=== PATIENT | female | born 1955 | race Caucasian/White ===

== ENCOUNTER 2020-06-14 09:22 | Outpatient (CLI) | payer MEDICARE, SELFPAY ==
--- NOTE | ~2020-06-14 | US_ITS ---
EXAMINATION: US abdomen complete DATE: 06/14/2020 09:57 INDICATION: Right upper quadrant pain TECHNIQUE: Multiple grayscale and Doppler ultrasound images of the abdomen were obtained. COMPARISON: 02/05/2016 FINDINGS: The head and and body of the pancreas are normal. The pancreatic tail is obscured by bowel gas. The liver is normal with normal echogenicity and echotexture. No surface nodularity. Normal hepa topetal flow in the main portal vein. The gallbladder is normal with no abnormal wall thickening, per icholecystic fluid or stones. The normal common bile duct measures 3 mm. There was no sonographic Mur phy sign. The visualized portions of the aorta and inferior vena cava are normal. The right kidney measures 10.9 x 4.1 x 6.6 cm. The left kidney measures 10.0 x 6.0 x 6.2 cm. The kidn eys demonstrate normal parenchymal echogenicity. There is no hydronephrosis. The spleen is normal in appearance and measures 10.4 cm. IMPRESSION: 1. No sonographic correlate for the patient's symptoms. Reviewed, dictated and finalized at location B.
== END 2020-06-14 09:23 | disposition home or self-care (01) ==
PROVIDERS: PCP Internal Medicine; Visit Provider Internal Medicine
DX: R10.11 Right upper quadrant pain (principal)
CPT/HCPCS: 76700

== ENCOUNTER 2023-01-29 11:52 | Outpatient (CLI) | payer MEDICARE, SELFPAY ==
[2023-01-29 12:32] LABS: Alanine Aminotransferase 21 U/L (6-35); Alkaline Phosphatase 120 U/L (38-126); Anion Gap 6 mmol/L (8-16); Aspartate Amino Transferase 27 U/L (14-36); Bilirubin,Total 0.4 mg/dL (0.2-1.3); Blood Urea Nitrogen 11 mg/dL (7-17); Calcium 8.6 mg/dL (8.4-10.2); Carbon Dioxide 30 mmol/L (22-30); Chloride 105 mmol/L (98-107); Cholesterol 164 mg/dL (0-200); Estimated Glomerular Filt Rate > 60; Glucose 79 mg/dL (65-110); HDL Direct 54 mg/dL; Sodium 141 mmol/L (137-145); Triglycerides 167 mg/dL (<150)
[2023-01-29 12:42] LABS: LDL Cholesterol Direct 71 mg/dL
[2023-01-29 12:43] LABS: Rheumatoid Factor < 12.0 IU/ML (<12)
[2023-01-29 12:47] LABS: Erythrocyte Sedimentation Rate 21 mm/hr (0-20)
[2023-01-29 13:01] LABS: Vitamin D 25 Hydroxy 35.1 ng/mL
== END 2023-01-29 11:53 | disposition home or self-care (01) ==
PROVIDERS: PCP Internal Medicine; Visit Provider Internal Medicine
DX: M79.10 Myalgia, unspecified site (principal); E55.9 Vitamin D deficiency, unspecified; E78.00 Pure hypercholesterolemia, unspecified
CPT/HCPCS: 36415; 80053; 80061; 82306; 85652; 86038; 86430

== ENCOUNTER 2023-05-27 09:58 | Outpatient (CLI) | payer MEDICARE, SELFPAY ==
--- NOTE | ~2023-05-27 | DEXA_ITS ---
Bone Density Report Name: SNOW SHERMAN Age: 68 Sex: Female Ethnicity: White Date of : 1955 Indication: postmenopausal; screening for osteoporosis; height loss; cancer; asthma or emphysema; hysterectomy; Referring Provider: ЮЛИЯ PAK Study: Bone densitometry was performed. Exam Date: May 27, 2023 Accession number: [id number] Bone Density: Region BMD T-score Z-score Classification Femoral Neck (Left) 0.777 -0.6 1.2 Normal Total Hip (Left) 0.904 -0.3 1.2 Normal Femoral Neck (Right) 0.756 -0.8 1.0 Normal Total Hip (Right) 0.906 -0.3 1.2 Normal Total Hip Mean 0.905 -0.3 1.2 Normal World Health Organization criteria for BMD impression classify patients as: Normal (T-score at or above -1.0), Osteopenia (T-score between -1.0 and -2.5), or Osteoporosis (T-score at or below -2.5). 10-year Fracture Risk: FRAX not reported because: All T-scores for Spine Total, Hip Total, Femoral Neck at or above -1.0 Clinical Information Provided by Patient: Has the following medical conditions: Asthma or Emphysema, Cancer, Hysterectomy Patient maximum height was 61 Menopause Age: 34 No regular weight bearing exercise Drinks caffeinated beverages Onset of menses at age 11 Number of children 4 Impression: The patient has normal bone mass. Discussion: BONE DENSITY IS ABOVE THE MINIMUM DESIRABLE LEVEL AT ALL SKELETAL SITES TESTED. This patient?s bone mineral density is above the minimum desirable level (T-score -1.0 or better) at all sites measured. The patient should follow a healthful lifestyle (good nutrition with adequate calcium and vitamin D, and appropriate weight-bearing exercise). Follow-Up: Consider repeating this study in 5 years or sooner if there is some new clinical indication. Reported by: UVALDO on 05/27/2023 10:26:00 AM. Reviewed, dictated and finalized at location ATamy RITTER
== END 2023-05-27 09:59 | disposition home or self-care (01) ==
PROVIDERS: PCP Internal Medicine; Visit Provider Internal Medicine
DX: Z78.0 Asymptomatic menopausal state (principal)
CPT/HCPCS: 77080

== ENCOUNTER → 2023-05-27 10:35 | Outpatient (CLI) | payer MEDICARE, SELFPAY ==
--- NOTE | ~2023-05-27 | CT_ITS ---
EXAMINATION: CT sinus wo con DATE: 05/27/2023 10:50 INDICATION: Chronic sinusitis TECHNIQUE: Computed tomography (CT) of the paranasal sinuses was performed without intravenous contra st. The dose-length product was 265.85 mGy-cm. Automated exposure control and iterative reconstructio n technique were employed. COMPARISON: None FINDINGS: There is a mucous retention cyst of the left maxillary sinus. No significant mucosal thicke fransisco. No air-fluid levels. No significant septal deviation. Ostiomeatal units are patent. Mastoids ar e pneumatized. IMPRESSION: 1. Mucous retention cyst left maxillary sinus measuring 1.4 cm. Reviewed, dictated and finalized at location L.
== END ==
PROVIDERS: PCP Allergy & Immunology; Visit Provider Allergy & Immunology
DX: J32.9 Chronic sinusitis, unspecified (principal); J34.1 Cyst and mucocele of nose and nasal sinus
CPT/HCPCS: 70486

== ENCOUNTER 2023-08-09 09:37 | Outpatient (CLI) | payer MEDICARE, SELFPAY ==
[2023-08-09 10:29] LABS: Basophils Absolute Auto 0.1 K/mm3 (0.0-0.1); Basophils Percent Auto 0.9 % (0.2-1.2); Eosinophils Absolute Auto 0.4 K/mm3 (0-0.3); Eosinophils Percent Auto 7.5 % (0-4.4); Hematocrit 42.2 % (37.0-47.0); Hemoglobin 13.3 g/dL (12.0-15.0); Immature Granulocyte Absolute 0.02 K/mm3 (0.00-0.031); Immature Granulocyte Percent A 0.3 % (0-0.5); Lymphocytes Absolute Auto 1.87 K/mm3 (0.9-3.2); Lymphocytes Percent Auto 32.5 % (18.3-44.2); Mean Corpuscular HGB Conc 31.5 g/dl (32-36); Mean Corpuscular Hemoglobin 28.7 pg (26-34); Mean Corpuscular Volume 90.9 fl (80-100); Mean Platelet Volume 9.3 fl (7.4-10.4); Monocytes Absolute Auto 0.5 K/mm3 (0.1-0.6); Monocytes Percent Auto 8.2 % (2.6-8.5); Neutrophils Absolute Auto 2.9 K/mm3 (1.3-6.7); Neutrophils Percent Auto 50.6 % (45.5-73.1); Platelet Count Result 378 k/mm3 (150-375); Red Blood Count 4.64 M/mm3 (4.2-5.4); Red Cell Distribution Width 14.1 % (11.5-14.5); White Blood Count 5.8 K/mm3 (4.5-10.0)
[2023-08-09 11:55] LABS: LDL Cholesterol Direct 81 mg/dL
[2023-08-09 11:56] LABS: Vitamin D 25 Hydroxy 27.3 ng/mL
[2023-08-09 12:49] LABS: Folic Acid 6.2 ng/mL (2.76->20)
[2023-08-09 14:12] LABS: Iron 68 ug/dL (37-170)
[2023-08-09 14:18] LABS: Alanine Aminotransferase 22 U/L (6-35); Alkaline Phosphatase 120 U/L (38-126); Anion Gap 6 mmol/L (8-16); Aspartate Amino Transferase 32 U/L (14-36); Bilirubin,Total 0.5 mg/dL (0.2-1.3); Blood Urea Nitrogen 12 mg/dL (7-17); Calcium 9.2 mg/dL (8.4-10.2); Carbon Dioxide 26 mmol/L (22-30); Chloride 107 mmol/L (98-107); Estimated Glomerular Filt Rate > 60; Glucose 90 mg/dL (65-110); Potassium 4.4 mmol/L (3.4-5.0); Sodium 139 mmol/L (137-145)
[2023-08-09 14:34] LABS: Percent Iron Saturation 18 % (20-50)
[2023-08-09 16:15] LABS: Cholesterol 169 mg/dL (0-200); HDL Direct 54 mg/dL
[2023-08-09 16:17] LABS: Triglycerides 139 mg/dL (<150)
== END 2023-08-09 09:38 | disposition home or self-care (01) ==
PROVIDERS: PCP Allergy & Immunology; Visit Provider Internal Medicine
DX: E87.6 Hypokalemia (principal); D64.9 Anemia, unspecified; E55.9 Vitamin D deficiency, unspecified; E78.00 Pure hypercholesterolemia, unspecified; R53.83 Other fatigue
CPT/HCPCS: 36415; 80053; 80061; 82306; 82607; 82746; 83540; 83550; 84443; 85025

== ENCOUNTER 2024-05-30 12:15 | Outpatient (CLI) | payer MEDICARE, SELFPAY ==
--- NOTE | 2024-05-30 12:19 | ECHO_ITS ---
Patient Info Name: Vangie Cha Age: 69 years : 1955 Gender: Female Ht: 61 in Wt: 166 lbs BSA: 1.83 m2 HR: 66 bpm BP: 149 / 67 mmHg Heart Rhythm: Sinus Rhythm Technical Quality: Good Exam Date: 05/30/2024 1:11 PM Exam Location: Echo Lab Patient Status: Outpatient Admit Date: 05/30/2024 Staff Ordering Physician: Silvano Laird DO Airport Control Operator: Carolina Saini RDCS Attending Provider: Silvano Laird DO Referring Physician: Eitan CARRILLO; Exam Type: CA echo doppler w bubble study Study Info Indications G45.8 - Other transient cerebral ischemic attacks and related syndromes Complete two-dimensional, color flow and Doppler transthoracic echocardiogram is performed with agitated saline. Strain analysis performed. Contrast/Agitated Saline Contrast/Ag. Saline: Agitated Saline Amount: 20.00 ml Administered By: Jerald Brady, RN New IV Access: Antecubital Space and Right Site Condition: No extravasation, Site dressing applied and IV removed Summary 1. Left ventricular chamber dimension is normal. 2. Left ventricular systolic function is normal, estimated at 60-65%. 3. The left ventricular diastolic function is grade I diastolic dysfunction. 4. Global longitudinal strain is abnormal at -16 %. 5. Right ventricular systolic function is normal. 6. Left atrial chamber dimension is mildly enlarged. 7. Bubble study is negative at rest. However, with Valsalva, there is a late, small right to left shunt, concerning for possible intrapulmonary shunt. 8. There is moderate mitral valve regurgitation. 9. There is mild tricuspid valve regurgitation. Left Ventricle Left ventricular chamber dimension is normal. Left ventricular systolic function is normal, estimated at 60-65%. There is no increased left ventricular wall thickness. The left ventricular diastolic function is grade I diastolic dysfunction. Global longitudinal strain is abnormal at -16 %. Right Ventricle Right ventricular chamber dimension is normal. Right ventricular systolic function is normal. Left Atria Left atrial chamber dimension is mildly enlarged. Right Atria Right atrial chamber dimension is normal. Atrial Septum Bubble study is negative at rest. However, with Valsalva, there is a late, small right to left shunt, concerning for possible intrapulmonary shunt. Aortic Valve The aortic valve is trileaflet. There is mild aortic valve sclerosis. There is no aortic valve stenosis. There is no aortic valve regurgitation. Pulmonic Valve The pulmonic valve is not well visualized. There is trace pulmonic regurgitation. Mitral Valve There is moderate mitral valve regurgitation. Tricuspid Valve There is mild tricuspid valve regurgitation. Pericardium/Pleural There is no pericardial effusion. Inferior Vena Cava Normal inferior vena cava with <50% collapse upon inspiration consistent with elevated right atrial pressure, 8 mmHg. Aorta The aortic root size at the sinus of Valsalva is normal. Left Ventricular Outflow Tract Name Value Normal LVOT 2D LVOT Diameter 1.9 cm LVOT Doppler LVOT Peak Gradient 7 mmHg LVOT Mean Gradient 4 mmHg
== END 2024-05-30 12:16 | disposition home or self-care (01) ==
LOC: ANHCARD 12:16
PROVIDERS: PCP Internal Medicine; Visit Provider Internal Medicine
DX: G45.8 Other transient cerebral ischemic attacks and related syndromes (principal); R60.9 Edema, unspecified; I34.0 Nonrheumatic mitral (valve) insufficiency; I07.1 Rheumatic tricuspid insufficiency
CPT/HCPCS: 93306; 96375

== ENCOUNTER 2024-06-15 13:52 | Outpatient (CLI) | payer MEDICARE, SELFPAY ==
--- NOTE | ~2024-06-15 | CT_ITS ---
CT Scan of the Chest without Contrast: Clinical Indication: Abnormal findings on diagnostic imaging of heart and coronary circulation Technique: Contiguous sections were acquired throughout the chest without intravenous contrast. Dose reduction technique was used on this scan by utilizing automated exposure control and iterative recon struction technique. The dose-length product (DLP) was 175.36 mGy-cm. Findings: There is no evidence of any significant mediastinal, hilar or axillary lymphadenopathy. Calcified rig ht hilar lymph nodes are present. No aortic aneurysm. There is no evidence of pleural or pericardial effusion. There is moderate emphysema and mild chronic interstitial change. There is minimal right basilar atel ectasis. Images through the upper abdomen reveal no abnormalities. Impression: Moderate emphysema and mild chronic interstitial change. Reviewed, dictated and finalized at [facility]. Impression: Moderate emphysema and mild chronic interstitial change.
== END 2024-06-15 13:53 | disposition home or self-care (01) ==
PROVIDERS: PCP Internal Medicine; Visit Provider Internal Medicine
DX: R93.1 Abnormal findings on diagnostic imaging of heart and coronary circulation (principal); J43.9 Emphysema, unspecified; J84.89 Other specified interstitial pulmonary diseases
CPT/HCPCS: 71250

== ENCOUNTER 2024-08-22 14:22 | Outpatient (CLI) | payer MEDICARE, SELFPAY ==
--- NOTE | ~2024-08-22 | XR_ITS ---
EXAMINATION: XR chest 2V DATE: 08/22/2024 14:41 INDICATION: Cough. TECHNIQUE: Frontal and lateral views of the chest were obtained. COMPARISON: Chest 2 views 08/15/2018, chest CT 06/15/2024 FINDINGS: Calcified right lung nodules and calcified right hilar lymph nodes are consistent with old granulomatous disease. There is a diffuse interstitial pattern in the lungs. There are airspace opaci ties in right lower lobe. No pleural effusion or pneumothorax. The heart size is normal. There are ch anges of posterior fusion and thoracolumbar spine. IMPRESSION: 1. Airspace opacities in right lower lobe, consistent with atelectasis versus pneumonia. 2. Chronic diffuse interstitial pattern in the lungs, likely a combination of emphysema and chronic i nterstitial lung disease. Reviewed, dictated and finalized at location A. R OPERATOR IMPRESSION: 1. Airspace opacities in right lower lobe, consistent with atelectasis versus p neumonia. 2. Chronic diffuse interstitial pattern in the lungs, likely a combination of e mphysema and chronic interstitial lung disease.
== END 2024-08-22 14:23 | disposition home or self-care (01) ==
LOC: MICIMG 14:23
PROVIDERS: PCP Allergy & Immunology; Visit Provider Allergy & Immunology
DX: R91.8 Other nonspecific abnormal finding of lung field (principal); R05.9 Cough, unspecified
CPT/HCPCS: 71046

== ENCOUNTER 2024-09-25 15:01 | Outpatient (CLI) | payer MEDICARE, SELFPAY ==
[2024-09-25 20:02] LABS: Basophils Percent Auto 0.3 % (0.2-1.2); Eosinophils Absolute Auto 0.2 K/mm3 (0-0.3); Hematocrit 39.5 % (37.0-47.0); Hemoglobin 12.1 g/dL (12.0-15.0); Immature Granulocyte Absolute 0.04 K/mm3 (0.00-0.031); Immature Granulocyte Percent A 0.3 % (0-0.5); Lymphocytes Absolute Auto 2.25 K/mm3 (0.9-3.2); Lymphocytes Percent Auto 18.5 % (18.3-44.2); Mean Corpuscular HGB Conc 30.6 g/dl (32-36); Mean Corpuscular Hemoglobin 27.3 pg (26-34); Mean Platelet Volume 10.2 fl (7.4-10.4); Monocytes Absolute Auto 0.8 K/mm3 (0.1-0.6); Monocytes Percent Auto 6.6 % (2.6-8.5); Neutrophils Absolute Auto 8.8 K/mm3 (1.3-6.7); Neutrophils Percent Auto 72.3 % (45.5-73.1); Platelet Count Result 411 k/mm3 (150-375); Red Blood Count 4.44 M/mm3 (4.2-5.4); Red Cell Distribution Width 15.9 % (11.5-14.5); White Blood Count 12.1 K/mm3 (4.5-10.0)
[2024-09-25 20:13] LABS: Alanine Aminotransferase 55 U/L (6-35); Alkaline Phosphatase 153 U/L (38-126); Anion Gap 3 mmol/L (4-12); Aspartate Amino Transferase 62 U/L (14-36); Bilirubin,Total 0.3 mg/dL (0.2-1.3); Blood Urea Nitrogen 13 mg/dL (7-17); Calcium 9.1 mg/dL (8.4-10.2); Carbon Dioxide 30 mmol/L (22-30); Chloride 110 mmol/L (98-107); Cholesterol 135 mg/dL (0-200); Estimated Glomerular Filt Rate > 60; Glucose 100 mg/dL (65-110); HDL Direct 51 mg/dL; Sodium 143 mmol/L (137-145); Triglycerides 107 mg/dL (<150)
[2024-09-25 20:24] LABS: LDL Cholesterol Direct 51 mg/dL
[2024-09-25 20:37] LABS: Vitamin D 25 Hydroxy 47.9 ng/mL
[2024-09-25 21:09] LABS: Ferritin 6.99 ng/mL (11.1-264)
[2024-09-28 22:33] LABS: Alphahydroxymidazolam NEGATIVE ng/mL (<50); Alphahydroxytriazolam NEGATIVE ng/mL (<50); Amphetamines NEGATIVE ng/mL (<500); Barbiturates NEGATIVE ng/mL (<300); Benzodiazepines POSITIVE ng/mL (<100); Cocaine Metabolite NEGATIVE ng/mL (<150); Hydroxyethylflurazepam NEGATIVE ng/mL (<50); Lorazepam NEGATIVE ng/mL (<50); Marijuana Metabolite 15 ng/mL (<5); Marijuana Metabolite POSITIVE ng/mL (<20); Methadone Metabolite NEGATIVE ng/mL (<100); Opiates NEGATIVE ng/mL (<100); Oxidant NEGATIVE mcg/mL (<200); Temazepam NEGATIVE ng/mL (<50); pH 5.3 (4.5-9.0)
== END 2024-09-25 15:02 | disposition home or self-care (01) ==
PROVIDERS: PCP Internal Medicine; Visit Provider Internal Medicine
DX: R60.0 Localized edema (principal); F11.90 Opioid use, unspecified, uncomplicated; D64.9 Anemia, unspecified; E78.5 Hyperlipidemia, unspecified; R53.83 Other fatigue; E55.9 Vitamin D deficiency, unspecified; Z98.890 Other specified postprocedural states
CPT/HCPCS: 36415; 80053; 80061; 80299; 82306; 82607; 82728; 85025

== ENCOUNTER 2024-11-01 12:41 | Outpatient (CLI) | payer MEDICARE, SELFPAY ==
[2024-11-01 13:13] LABS: Basophils Percent Auto 0.5 % (0.2-1.2); Eosinophils Absolute Auto 0.3 K/mm3 (0-0.3); Eosinophils Percent Auto 4.3 % (0-4.4); Hematocrit 36.6 % (37.0-47.0); Hemoglobin 11.3 g/dL (12.0-15.0); Immature Granulocyte Absolute 0.01 K/mm3 (0.00-0.031); Immature Granulocyte Percent A 0.1 % (0-0.5); Lymphocytes Absolute Auto 1.84 K/mm3 (0.9-3.2); Lymphocytes Percent Auto 24.2 % (18.3-44.2); Mean Corpuscular HGB Conc 30.9 g/dl (32-36); Mean Corpuscular Volume 87.6 fl (80-100); Mean Platelet Volume 9.7 fl (7.4-10.4); Monocytes Absolute Auto 0.5 K/mm3 (0.1-0.6); Monocytes Percent Auto 6.4 % (2.6-8.5); Neutrophils Absolute Auto 4.9 K/mm3 (1.3-6.7); Neutrophils Percent Auto 64.5 % (45.5-73.1); Platelet Count Result 335 k/mm3 (150-375); Red Blood Count 4.18 M/mm3 (4.2-5.4); Red Cell Distribution Width 14.7 % (11.5-14.5); White Blood Count 7.6 K/mm3 (4.5-10.0)
[2024-11-01 13:24] LABS: INR 1.1; Prothrombin Time 14.7 Seconds (11.1-14.7)
--- OUTSIDE RECORDS SUMMARY | 2024-11-01 13:34 | XMS_ITS | Clinical Summary ---
Author Organization [facility] Address [address] [place] [address] Care Team Providers Care Skin Toggler Name Role Phone Kain Shields DO Primary Care Provider Source Comments [facility],non-owned Affiliates and Associated Physician Practices is amultiple site organization consisting of ambulatory clinics and hospital sitesin [place], [place], [place]. This disclosure is being madepursuant to the Care Everywhere program and may not contain all information available regarding this patient. Last updated 18.[facility] Allergies Active Allergy Reactions Criticality Noted Date Comments Hydrocodone Itching 10/07/2018 Nausea Medications * Be aware that medications may not be up to date on this document. Alwaysverify current medications with the patient. Medication Sig Dispensed Refills Start Date End Date Status albuterol (Proventil;Ventoli n) (2.5 MG/3ML) 0.083% nebulizer solution 04/22/2023 Active albuterol HFA (Proventil; Ventolin; Proair) 108 (90 Base) MCG/ACT inhaler Inhale 2 (two) puffs by mouth every 6 hours as needed for Wheezing 07/21/2023 Active aspirin EC (Ecotrin) 81 MG tablet Take 1 (one) tablet by mouth once daily Active busPIRone (Buspar) 10 MG tablet Take 1 (one) tablet by mouth 2 times daily 07/01/2023 Active esomeprazole (NexIUM) 40 MG capsule Take 1 (one) capsule by mouth daily before breakfast 06/08/2023 Active gabapentin (Neurontin) 400 MG capsule Take 1 (one) capsule by mouth 2 times daily 07/01/2023 Active lamoTRIgine (LaMICtal) 50 MG TABS Take 1 (one) Half Tablet by mouth 2 times daily 06/29/2022 Active lisinopril (Prinivil; Zestril) 5 MG tablet Take 1 (one) tablet by mouth once daily 07/01/2023 Active simvastatin (Zocor) 40 MG tablet Take 1 (one) tablet by mouth once daily 06/03/2023 Active Belsomra 20 MG tablet Take 1 (one) tablet by mouth at bedtime 04/27/2023 Active Trintellix 20 MG tablet Take 1 (one) tablet by mouth once daily 07/01/2023 Active pimecrolimus (Elidel) 1 % cream 11/01/2023 Active hydrOXYzine HCl (Atarax) 10 MG tablet Take 1 (one) tablet by mouth 2 times daily as needed 12/20/2023 Active eszopiclone (Lunesta) 3 MG tablet Take 1 (one) tablet by mouth at bedtime 12/20/2023 Active clonazePAM (KlonoPIN) 0.5 MG tablet Take 1 (one) tablet by mouth once daily as needed 12/16/2023 Active Immune Globulin, Human, (HIZENTRA SC) Inject subcutaneously every 7 days Active cetirizine (ZyrTEC) 10 MG chew tablet Take 1 (one) tablet by mouth once daily Active fluticasone propionate (Flonase) 50 MCG/ACT nasal spray [place] 2 (two) sprays into each nostril once daily Active vitamin D, ergocalciferol, (Drisdol) 1.25 MG (97818 UT) capsule Take 1 (one) capsule by mouth every 7 days 12 capsule 01/18/2024 Active acetaminophen (Tylenol) 160 MG/5ML solution Take 20.3125 mL by mouth every 6 hours 02/02/2024 Active cyclobenzaprine (Flexeril) 10 MG tabletIndications: chronic back pain Take 1 (one) tablet by mouth every 8 hours as needed for Muscle Spasms Reasons: chronic back pain 15 tablet 02/02/2024 Active gabapentin (Neurontin) 250 MG/5ML oral solution Take 8 mL by mouth 2 times daily for 30 days 480 mL 02/02/2024 Active vitamin E (Tocopheryl) 400 UNIT capsule Take 2 (two) capsules by mouth once daily 180 capsule 02/25/2024 Active docusate sodium (Colace Clear) 50 MG capsuleIndications :Constipation, unspecified constipation type Take 1 (one) capsule by mouth 3 times daily 270 capsule 1 08/02/2024 Active ondansetron, disintegrating, (Zofran ODT) 4 MG tablet DISSOLVE 1 TABLET ON THE TONGUE EVERY 6 HOURS NEEDED FOR NAUSEA AND VOMITING 30 tablet 3 08/02/2024 Active Active Problems Problem Noted Date Diagnosed Date Morbid obesity 02/01/2024 Encounters Date Type Department Care Team Description 08/10/[address] [facility] [address] [place] [address], [address] [place], [place] [id number] Vikki Salvador APRN-CNP Results 08/04/[address] [facility] [address] [facility], [address] [place] [address] Kayla Schumacher APRN-CNP Refill Request 08/02/2024 1:00 PM CDT Office Visit [facility] [address] [facility] [address] [place] [address] Vikki Salvador APRN-CNP Constipation, unspecified constipation type (Primary Dx); S/P biliopancreatic diversion with duodenal switch; Vitamin deficiency; Weight loss; Dietary counseling and surveillance; Postsurgical malabsorption (HCC); History of morbid obesity 08/02/2024 Travel from Last 3 Months Social History Tobacco Use Types Packs/Day Years Used Date Smoking Tobacco: Former Cigarettes Smokeless Tobacco: Never Tobacco Cessation:Counseling Given: Not Answered Alcohol Use Standard Drinks/Week Comments Not Currently 0 (1 standard drink = 0.6 oz pur e alcohol) Sex and Gender Information Value Date Recorded Sex Assigned at Not on file Gender Identity Not on file Sexual Orientation Not on file Last Filed Vital Signs Vital Sign Reading Time Taken Comments Blood Pressure 124/70 08/02/2024 12:40 PM CDT Pulse 68 08/02/2024 12:40 PM CDT Temperature 36.3 ??C (97.4 ??F) 08/02/2024 12:40 PM C DT Respiratory Rate 18 02/02/2024 8:04 AM CDT Oxygen Saturation 96% 08/02/2024 12:40 PM CDT Inhaled Oxygen Concentration - - Weight 72.3 kg (159 lb 6.4 oz) 08/02/2024 12:40 PM CDT Height 154.9 cm (5' 1 ) 08/02/2024 12:40 PM CDT Body Mass Index 30.12 08/02/2024 12:40 PM CDT Plan of Treatment Upcoming Encounters Date Type Department Care Team (Late st Contact Info) Description 01/31/2025 1:00 PM CDT Office Visit [facility] Weight Management Services [address], [address] [place] [address] Vikki Salvador, SERVICE SPECIALIST-CASHIER [facility] [address] [facility] [address] [place] [address] Health Maintenance Due Date Last Done Comments BONE DENSITY TESTING 1955 COLOGUARD (AGES 45-75) - COLON CA SCREENING [address] COLONOGRAPHY - COLON CA SCREENING 1955 FIT - COLON CA SCREENING 1955 FLEX SIG - COLON CA SCREENING 1955 MAMMOGRAM 1955 HEPATITIS C SCREENING 01/07/1971 DTAP/TDAP/TD VACCINES (1 - Tdap) 01/12/1972 PNEUMOCOCCAL VACCINE 50+ (1 of 1 - PCV) 2003 ZOSTER VACCINE (1 of 2) 2003 Respiratory Syncytial Virus (RSV) Vaccine Pt: or over 60 yrs (1 - Risk 60-74 years 1-dose series) 2013 COVID-19 VACCINE (1 - season) 2024 INFLUENZA VACCINE (#1) 2024 12/03/2015 DEPRESSION SCREENING 10/04/2024 MEDICARE AWV ? CALENDAR YEAR 2024 SCREENING FOR DIABETES 08/02/2027 4, 02/02/2024, 02/01/2024, Additional history exists COLONOSCOPY - COLON CA SCREENING 03/27/2030 03/27/2020 Colorectal Cancer Screening 03/27/2030 HEPATITIS B VACCINE Aged Out No longe r eligible based on patient's age to complete this topic HIB VACCINE Aged Out No longer eligi ble based on patient's age to complete this topic HPV VACCINE Aged Out No longer eligi ble based on patient's age to complete this topic MENINGOCOCCAL (Group B) VACCINE Aged Out No longer eligible based on patient's age to complete this topic MENINGOCOCCAL VACCINE Aged Out No susanna estelle eligible based on patient's age to complete this topic Procedures Procedure Name Priority Date/Time Associated Diagnosis Comments VITAMIN D 25-HYDROXY Routine 08/02/2024 1:38 PM CDT Constipation, unspecified constipation type S/P biliopancreatic diversion with duodenal switch Vitamin deficiency Weight loss Dietary counseling and surveillance Postsurgical malabsorption (HCC) History of morbid obesity IRON + TIBC PANEL Routine 08/02/2024 1:3 8 PM CDT Constipation, unspecified constipation type S/P biliopancreatic diversion with duodenal switch Vitamin deficiency Weight loss Dietary counseling and surveillance Postsurgical malabsorption (HCC) History of morbid obesity FOLATE Routine 08/02/2024 1:38 PM CDT Constipation, unspecified constipation type S/P biliopancreatic diversion with duodenal switch Vitamin deficiency Weight loss Dietary counseling and surveillance Postsurgical malabsorption (HCC) History of morbid obesity PTH INTACT Routine 08/02/2024 1:37 PM CDT Constipation, unspecified constipation type S/P biliopancreatic diversion with duodenal switch Vitamin deficiency Weight loss Dietary counseling and surveillance Postsurgical malabsorption (HCC) History of morbid obesity SELENIUM Routine 08/02/2024 1:37 PM CDT Constipation, unspecified constipation type S/P biliopancreatic diversion with duodenal switch Vitamin deficiency Weight loss Dietary counseling and surveillance Postsurgical malabsorption (HCC) History of morbid obesity VITAMIN A Routine 08/02/2024 1:37 PM CDT Constipation, unspecified constipation type S/P biliopancreatic diversion with duodenal switch Vitamin deficiency Weight loss Dietary counseling and surveillance Postsurgical malabsorption (HCC) History of morbid obesity VITAMIN B1 Routine 08/02/2024 1:37 PM CDT Constipation, unspecified constipation type S/P biliopancreatic diversion with duodenal switch Vitamin deficiency Weight loss Dietary counseling and surveillance Postsurgical malabsorption (HCC) History of morbid obesity VITAMIN B12 Routine 08/02/2024 1:37 PM CDT Constipation, unspecified constipation type S/P biliopancreatic diversion with duodenal switch Vitamin deficiency Weight loss Dietary counseling and surveillance Postsurgical malabsorption (HCC) History of morbid obesity VITAMIN E Routine 08/02/2024 1:37 PM CDT Constipation, unspecified constipation type S/P biliopancreatic diversion with duodenal switch Vitamin deficiency Weight loss Dietary counseling and surveillance Postsurgical malabsorption (HCC) History of morbid obesity VITAMIN K1 Routine 08/02/2024 1:37 PM CDT Constipation, unspecified constipation type S/P biliopancreatic diversion with duodenal switch Vitamin deficiency Weight loss Dietary counseling and surveillance Postsurgical malabsorption (HCC) History of morbid obesity ZINC BLOOD Routine 08/02/2024 1:37 PM CDT Constipation, unspecified constipation type S/P biliopancreatic diversion with duodenal switch Vitamin deficiency Weight loss Dietary counseling and surveillance Postsurgical malabsorption (HCC) History of morbid obesity PREALBUMIN Routine 08/02/2024 1:37 PM CDT Constipation, unspecified constipation type S/P biliopancreatic diversion with duodenal switch Vitamin deficiency Weight loss Dietary counseling and surveillance Postsurgical malabsorption (HCC) History of morbid obesity MAGNESIUM BLOOD Routine 08/02/2024 1:37 PM CDT Constipation, unspecified constipation type S/P biliopancreatic diversion with duodenal switch Vitamin deficiency Weight loss Dietary counseling and surveillance Postsurgical malabsorption (HCC) History of morbid obesity FERRITIN Routine 08/02/2024 1:37 PM CDT Constipation, unspecified constipation type S/P biliopancreatic diversion with duodenal switch Vitamin deficiency Weight loss Dietary counseling and surveillance Postsurgical malabsorption (HCC) History of morbid obesity COPPER BLOOD Routine 08/02/2024 1:37 PM CDT Constipation, unspecified constipation type S/P biliopancreatic diversion with duodenal switch Vitamin deficiency Weight loss Dietary counseling and surveillance Postsurgical malabsorption (HCC) History of morbid obesity COMPREHENSIVE METABOLIC PANEL Routine 08/02/2024 1:37 PM CDT Constipation, unspecified constipation type S/P biliopancreatic diversion with duodenal switch Vitamin deficiency Weight loss Dietary counseling and surveillance Postsurgical malabsorption (HCC) History of morbid obesity CBC W/O DIFFERENTIAL Routine 08/02/2024 1:37 PM CDT Constipation, unspecified constipation type S/P biliopancreatic diversion with duodenal switch Vitamin deficiency Weight loss Dietary counseling and surveillance Postsurgical malabsorption (HCC) History of morbid obesity from Last 3 Months Results * VITAMIN D 25-HYDROXY (08/02/2024 1:38 PM CDT) Vitamin D, 25 Hydroxy 47.3 30.0 - 100.0 ng/mL [facility] INSURANCE BILL Comment: Vitamin D deficiency has been defined by the [place] of [employer] and an Endocrine Society practice guideline as a level of serum 25-OH vitamin D less than 20 ng/mL (1,2). The Endocrine Society went on to further define vitamin D insufficiency as a level between 21 and 29 ng/mL (2). 1. IOM ([place] of [employer]). 2010. Dietary reference ?? intakes for calcium and D. [place]: The ?? National Academies Press. 2. Rahat MF, Jagdeep NC, Alonso ARAYA, et al. ?? Evaluation, treatment, and prevention of vitamin D ?? deficiency: an Endocrine Society clinical practice ?? guideline. JCEM. 2010; 96(7):1911-30. Blood BLOOD SPECIMEN / Unknown 08/02/2024 1:38 PM CDT 08/02/2024 Narrative [facility] INSURANCE BILL - 08/03/2024 9:14 AM CDT Performed at: ??01 - [facility] [address] ??[id number] Drill Sharpener: Chavez Benavides PhD, Phone: ??[phone] Vikki Salvador APRN-CASHIER [facility] LAB - CHEMISTRY O RDERABLES Performing Organization Address City/[facility]/ZIP Co de Phone Number [facility] INSURANCE BILL [address] [place] [address] * IRON + TIBC PANEL (08/02/2024 1:38 PM CDT) TIBC 296 250 - 450 ug/dL [facility] INSURANCE BILL UIBC 249 118 - 369 ug/dL [facility] INSURANCE BILL Iron 47 27 - 139 ug/dL [facility] INSURANCE BILL Iron Saturation 16 15 - 55 % [facility] INSURANCE BILL Blood BLOOD SPECIMEN / Unknown 08/02/2024 1:38 PM CDT 08/02/2024 Narrative [facility] INSURANCE BILL - 08/03/2024 8:20 AM CDT Performed at: ??01 - [facility] [address] ??[id number] Drill Sharpener: Chavez Benavides PhD, Phone: ??[phone] Vikki Salvador APRN-CASHIER [facility] - CHEMISTRY O RDERABLES Performing Organization Address City/[facility] Co de Phone Number [facility] INSURANCE BILL [address] [place] [address] * FOLATE (08/02/2024 1:38 PM CDT) Folate 11.8 >3.0 ng/mL [facility] INSURANCE BILL Comment: A serum folate concentration of less than 3.1 ng/mL is considered to represent clinical deficiency. Blood BLOOD SPECIMEN / Unknown 08/02/2024 1:38 PM CDT 08/02/2024 Narrative [facility] INSURANCE BILL - 08/03/2024 10:13 AM CDT Performed at: ??01 - [facility] [address] ??[id number] Drill Sharpener: Chavez Benavides PhD, Phone: ??[phone] Vikki Laureano Salvador APRN-CASHIER [facility] - CHEMISTRY O RDERABLES Performing Organization Address [facility] de Phone Number [facility] INSURANCE BILL [address] [place] [address] * VITAMIN K1 (08/02/2024 1:37 PM CDT) Vitamin K1 0.48 0.10 - 2.20 ng/mL [facility] INSURANCE BILL Blood BLOOD SPECIMEN / Unknown 08/02/2024 1:37 PM CDT 08/02/2024 Narrative [facility] INSURANCE BILL - 08/09/2024 10:13 AM WINDOW SHADE ESTIMATOR Test(s) 930412-Wxwdbaq K1 was developed and its performance characteristics determined by [employer]. It has not been cleared or approved by the Food and Drug Administration. Performed at: ??01 - [facility] ??[id number] Drill Sharpener: Edgard Bower MD, Phone: ??[phone] Vikki Salvador APRN-CASHIER [facility] - CHEMISTRY O RDERABLES Performing Organization Address [facility] Co de Phone Number [facility] INSURANCE BILL [address] [place] [address] * ZINC BLOOD (08/02/2024 1:37 PM CDT) Zinc, Plasma or Serum 56 44 - 115 ug/dL [facility] INSURANCE BILL Comment:Detection Limit = 5 Blood BLOOD SPECIMEN / Unknown 08/02/2024 1:37 PM CDT 08/02/2024 Narrative [facility] INSURANCE BILL - 08/05/2024 7:12 AM CDT Test(s) 801409-Wxla, Plasma or Serum was developed and its performance characteristics determined by [facility]. It has not been cleared or approved by the Food and Drug Administration. Performed at: ??01 - [facility] ??[id number] Drill Sharpener: Edgard Bower MD, Phone: ??[phone] Vikki [facility] - CHEMISTRY O RDERABLES Performing Organization Address City/[facility]/ZIP Co de Phone Number [facility] INSURANCE BILL [address] [place] [address] * VITAMIN A (08/02/2024 1:37 PM CDT) Vitamin A 24.7 22.0 - 69.5 ug/dL [facility] INSURANCE BILL Comment: Reference intervals for vitamin [facility]. Individuals with vitamin A less than 20 ug/dL are considered vitamin A deficient and those with serum concentrations less than 10 ug/dL are considered severely deficient. This test was developed and its performance characteristics determined by [facility]. It has not been cleared or approved by the Food and Drug Administration. Blood BLOOD SPECIMEN / Unknown 08/02/2024 1:37 PM CDT 08/02/2024 Narrative [facility] INSURANCE BILL - 08/09/2024 3:10 PM WINDOW SHADE ESTIMATOR Performed at: ??01 - [address] ??[id number] Drill Sharpener: Edgard Bower MD, Phone: ??[phone] Vikki Salvador APRN-CASHIER [facility] - CHEMISTRY O RDERABLES Performing Organization Address [facility] Co de Phone Number [facility] INSURANCE BILL [address] [place] [address] * VITAMIN E (08/02/2024 1:37 PM CDT) Vitamin E Alpha Tocopherol 9.4 9.0 - 29.0 mg/L [facility] INSURANCE BILL Vitamin E Gamma Tocopherol 0.9 0.5 - 4.9 mg/L [facility] INSURANCE BILL Comment: Reference intervals for alpha and gamma-tocopherol determined from National Health and Nutrition Examination Survey, 5298-1200. Individuals with alpha-tocopherol levels less than 5.0 mg/L are considered vitamin E deficient. Blood BLOOD SPECIMEN / Unknown 08/02/2024 1:37 PM CDT 08/02/2024 Narrative [facility] INSURANCE BILL - 08/09/2024 3:10 PM WINDOW SHADE ESTIMATOR Test(s) 960272-Fysddes E(Alpha Tocopherol); 667232- Vitamin E(Gamma Tocopherol) was developed and its performance characteristics determined by [employer]. It has not been cleared or approved by the Food and Drug Administration. Performed at: ??01 - [facility] ??[id number] Drill Sharpener: Edgard Bower MD, Phone: ??[phone] Vikki Salvador APRN-CASHIER [facility] LAB - CHEMISTRY O RDERABLES Performing Organization Address [facility]/ZIP Co de Phone Number [facility] INSURANCE BILL [address] [place] [address] * (ABNORMAL) VITAMIN B1 (08/02/2024 1:37 PM CDT) Vitamin B1 Whole Blood 205.1(H) 66.5 - 200.0 nmol/L [facility] Blood BLOOD SPECIMEN / Unknown 08/02/2024 1:37 PM CDT 08/02/2024 Narrative [facility] - 08/07/2024 9:07 PM WINDOW SHADE ESTIMATOR Test(s) 208328-Wbs. B1, Whole Blood was developed and its performance characteristics determined by [employer]. It has not been cleared or approved by the Food and Drug Administration. Performed at: ??01 - [facility] ??[id number] Drill Sharpener: Edgard Bower MD, Phone: ??[phone] Vikki Salvador APRN-CASHIER [facility] - CHEMISTRY O RDERABLES Performing Organization Address [facility]/ZIP Co de Phone Number [facility] INSURANCE BILL [address] [place] [address] * SELENIUM (08/02/2024 1:37 PM CDT) Selenium 107 93 - 198 ug/L [facility] Blood BLOOD SPECIMEN / Unknown 08/02/2024 1:37 PM CDT 08/02/2024 Narrative [facility] - 08/16/2024 5:09 PM WINDOW SHADE ESTIMATOR Test(s) [id number]-Fowpydvh, Serum/Plasma was developed and its performance characteristics determined by [facility]. It has not been cleared or approved by the Food and Drug Administration. Performed at: ??01 - [facility] [address], [place], [place] ??[id number] Drill Sharpener: Denise Ellis MD, Phone: ??[phone] Vikki Salvador APRNED[facility]. [facility] LAB - CHEMISTRY O RDERABLES Performing Organization Address [facility]/ZIP Co de Phone Number [facility] INSURANCE BILL [address] [place] [address] * PTH INTACT (08/02/2024 1:37 PM CDT) PTH Intact 64 15 - 65 pg/mL [facility] INSURANCE BILL Blood BLOOD SPECIMEN / Unknown 08/02/2024 1:37 PM CDT 08/02/2024 Narrative [facility] INSURANCE BILL - 08/03/2024 11:13 AM CDT Performed at: ??01 - [facility] [id number] [place], [place] ??[id number] Drill Sharpener: Chavez Benavides PhD, Phone: ??[phone] Vikki Salvador [facility] LAB - CHEMISTRY O RDERABLES Performing Organization Address [facility] de Phone Number [facility] [address] [place] [address] * COPPER BLOOD (08/02/2024 1:37 PM CDT) Copper 83 80 - 158 ug/dL [facility] INSURANCE BILL Comment:Detection Limit = 5 Blood BLOOD SPECIMEN / Unknown 08/02/2024 1:37 PM CDT 08/02/2024 Narrative [facility] - 08/05/2024 7:12 AM CDT Test(s) [id number]-Awusws, Serum or Plasma was developed and its performance characteristics determined by [facility]. It has not been cleared or approved by the Food and Drug Administration. Performed at: ??01 - [facility] [address] ??[id number] Drill Sharpener: Edgard Bower MD, Phone: ??[phone] Vikki Salvador APRN-CASHIER [facility] LAB - CHEMISTRY O RDERABLES Performing Organization Address [facility] Co de Phone Number [facility] INSURANCE BILL [address] [place] [address] * (ABNORMAL) CBC W/O DIFFERENTIAL (08/02/2024 1:37 PM CDT) WBC 6.5 3.4 - 10.8 x10E3/uL [facility] INSURANCE BILL RBC 4.37 3.77 - 5.28 x10E6/uL [facility] INSURANCE BILL Hemoglobin 11.9 11.1 - 15.9 g/dL [facility] INSURANCE BILL Hematocrit 39.3 34.0 - 46.6 % [facility] INSURANCE BILL MCV 90 79 - 97 fL [facility] INSURANCE BILL MCH 27.2 26.6 - 33.0 pg [facility] INSURANCE BILL MCHC 30.3(L) 31.5 - 35.7 g/dL [facility] INSURANCE BILL RDW 15.2 11.7 - 15.4 % [facility] INSURANCE BILL Platelet Count 369 150 - 450 x10E3/uL [facility] INSURANCE BILL Blood BLOOD SPECIMEN / Unknown 08/02/2024 1:37 PM CDT 08/02/2024 Narrative [facility] INSURANCE BILL - 08/03/2024 7:13 AM CDT Performed at: ??01 - [facility] [address] ??[id number] Drill Sharpener: Chavez Benavides PhD, Phone: ??[phone] Vikki [place] - HEMATOLOGY ORDERABLES Performing Organization Address [facility] Co de Phone Number [facility] INSURANCE BILL [address] [place] [address] * (ABNORMAL) COMPREHENSIVE METABOLIC PANEL (08/02/2024 1:37 PM CDT) Glucose 80 70 - 99 mg/dL [facility] INSURANCE BILL BUN 16 8 - 27 mg/dL [facility] INSURANCE BILL Creatinine 0.56(L) 0.57 - 1.00 mg/dL [facility] INSURANCE BILL eGFR by CKD-EPI 98 >59 mL/min/1.7 3 [facility] INSURANCE BILL BUN/Creatinine Ratio 29(H) 12 - 28 [facility] INSURANCE BILL Sodium 146(H) 134 - 144 mmol/L [facility] INSURANCE BILL Potassium 3.5 3.5 - 5.2 mmol/L [facility] INSURANCE BILL Chloride 106 96 - 106 mmol/L [facility] INSURANCE BILL CO2 28 20 - 29 mmol/L [facility] INSURANCE BILL Calcium 8.9 8.7 - 10.3 mg/dL [facility] INSURANCE BILL Protein Total 5.9(L) 6.0 - 8.5 g/dL [facility] INSURANCE BILL Albumin 3.7(L) 3.8 - 4.8 g/dL [facility] INSURANCE BILL Globulin Total 2.2 1.5 - 4.5 g/dL [facility] INSURANCE BILL Bilirubin Total 0.2 0.0 - 1.2 mg/dL [facility] INSURANCE BILL Alkaline Phosphatase 156(H) 44 - 121 IU/L [facility] INSURANCE BILL AST 28 0 - 40 IU/L [facility] INSURANCE BILL ALT 27 0 - 32 IU/L [facility] INSURANCE BILL Blood BLOOD SPECIMEN / Unknown 08/02/2024 1:37 PM CDT 08/02/2024 Narrative [facility] INSURANCE BILL - 08/03/2024 9:14 AM CDT Performed at: ??01 - [address] ??[id number] Drill Sharpener: Chavez Benavides PhD, Phone: ??[phone] Vikki Salvador SERVICE SPECIALIST-CASHIER [facility] LAB - CHEMISTRY O RDERABLES [facility] INSURANCE BILL [address] [place] [address] * PREALBUMIN (08/02/2024 1:37 PM CDT) Prealbumin 14 9 - 32 mg/dL [facility] INSURANCE BILL Blood BLOOD SPECIMEN / Unknown 08/02/2024 1:37 PM CDT 08/02/2024 Narrative [facility] INSURANCE BILL - 08/03/2024 1:10 PM CDT Performed at: ??01 - [facility] ??[id number] Drill Sharpener: Chavez Benavides PhD, Phone: ??[phone] Vikki Salvador APRN-CASHIER [facility] - CHEMISTRY O RDERAMICHAELA Performing Organization Address [facility]/ZIP Co de Phone Number [facility] INSURANCE BILL [address] [place] [address] * MAGNESIUM BLOOD (08/02/2024 1:37 PM CDT) Magnesium 1.9 1.6 - 2.3 mg/dL [facility] INSURANCE BILL Blood BLOOD SPECIMEN / Unknown 08/02/2024 1:37 PM CDT 08/02/2024 Narrative [facility] INSURANCE BILL - 08/03/2024 10:13 AM CDT Performed at: ??01 - [address] ??[id number] Drill Sharpener: Chavez Benavides PhD, Phone: ??[phone] Vikki Salvador APRN-CASHIER [facility] - CHEMISTRY O RDRUDDY Performing Organization Address [facility] de Phone Number [facility] INSURANCE BILL [address] [place] [address] * (ABNORMAL) VITAMIN B12 (08/02/2024 1:37 PM CDT) Vitamin B12 1,447(H) 232 - 1,245 pg/mL [facility] INSURANCE BILL Blood BLOOD SPECIMEN / Unknown 08/02/2024 1:37 PM CDT 08/02/2024 Narrative [facility] INSURANCE BILL - 08/03/2024 11:13 AM CDT Performed at: ??01 - [address] ??[id number] Drill Sharpener: Chavez Benavides PhD, Phone: ??[phone] Vikki Tinsley [place] SERVICE SPECIALIST-[facility] - CHEMISTRY O RDERABLES [facility] INSURANCE BILL [address] [place] [address] * FERRITIN (08/02/2024 1:37 PM CDT) Ferritin 16 15 - 150 ng/mL [facility] INSURANCE BILL Blood BLOOD SPECIMEN / Unknown 08/02/2024 1:37 PM CDT 08/02/2024 Narrative [facility] INSURANCE BILL - 08/03/2024 10:13 AM CDT Performed at: ??01 - [facility] ??[id number] Drill Sharpener: Chavez Benavides PhD, Phone: ??[phone] Vikki Laureano Salvador SERVICE SPECIALIST-[facility]ASHIER [facility] - CHEMISTRY O RDERABLES Performing Organization Address City/[facility]/ZIP Co de Phone Number [facility] INSURANCE BILL [address] [place] [address] from Last 3 Months Advance Directives * Full Code (Latest Code Status on File) Date Activated Date Inactivated Comments 02/01/2024 2:43 PM 02/02/2024 4:24 PM Care Teams Skin Toggler Relationship Specialty Start Date End Date Kain Shields DO [address] [facility] [address] [place] [address] PCP - General Internal Medicine 07/22/23
--- OUTSIDE RECORDS SUMMARY | 2024-11-01 13:34 | XMS_ITS | Data Portability ---
Author Organization [place] [facility], Main Office Address [address] [place] [address] Care Team Providers Care Box Machine Operator Name Role Phone ЮЛИЯ PAK Primary Care Provider ЮЛИЯ PAK Referring Provider [phone] Assessment Encounter Date Assessment Date Assessment LastModified by Organization Details LastModified Time 06/29/2024 06/29/2024 This note is dictated and transcribed by [employer]. [employer] variances may occur. Despite proofreading, typographical errors may occur. Occasional wrong-word or 'meqji-p-bbsz' substitutions may have occurred due to the inherent limitations of voice recording. Read the chart carefully and recognize, using context, where substitutions have occurred. Not available 06/29/2024 14:39:07 10/12/2024 10/12/2024 This note is dictated and transcribed by [employer]. [employer] variances may occur. Despite proofreading, typographical errors may occur. Occasional wrong-word or 'hpqcc-p-dqev' substitutions may have occurred due to the inherent limitations of voice recording. Read the chart carefully and recognize, using context, where substitutions have occurred. Not available 10/12/2024 16:18:13 Plan of Treatment Reminders Order Date Submit Date Provider Last Modified By Organization Details Last Modified Time Details Appointments Establish ed Patient 15 2024 02:30P Lynn Rodriguez DPM Not available Not available Not available Lab None recorded. Referral None recorded. Procedures None recorded. Surgeries None recorded. Imaging None recorded. Medication Orders None recorded. Patient TargetsNo targets recorded. Patient InstructionsNo instructions recorded. Reason for Referral None Reported. Problems Name Problem SNOMED Code Status Onset Date Resolution Date Notes Provider Name and Address Organization Details Recorded Time Radiothera py follow-up 244517333 Active Not Available [facility] 3 12:46:35 Partial thickness rotator cuff tear 491339664 Active Not Available [facility] 3 12:46:35 Shoulder joint pain 199585366 Active Not Available [facility] 3 12:46:35 Closed fracture of metatarsal bone 08781801 Active Not Available [facility] 3 12:46:35 Disorder of bursa of shoulder region 10837127 Active Not Available [facility] 3 12:46:35 Anxiety 06671811 Active 2023 Annabel castro[place] [facility] 4 14:02:16 Arthritis 1848317 Active 2023 Annabel Tejada null, [place] [facility] 4 14:02:27 Depressive disorder 66632182 Active 2023 Annabel Tejada null[place] [facility] 4 14:02:35 Dizziness 887578818 Active 2023 Annabel Tejada null[place] [facility] 4 14:02:43 Headache 26583777 Active 2023 Annabel Tejada null[place] [facility] 4 14:02:50 Hyperchole sterolemia 22893799 Active 2023 Annabel Tejada null[place] [facility] 4 14:02:58 Disorder of lung 52028151 Active 2023 Annabel Tejada null[place] [facility] 4 14:03:07 Migraine 96818627 Active 2023 Annabel Tejada null[place] [facility] 4 14:03:14 Obesity 896770889 Active 2023 Annabel Tejada null[place] [facility] 4 14:03:20 Curly toe 602443891 Active 2023 Zaire Rodriguez DPM [address] [facility] [address], [place], [address] , [facility] 4 14:38:59 [place] of toe 56441230 Active 2023 Zaire Rodriguez DPM [address], [place], [address] , [facility] 4 14:39:04 Dystrophia unguium 87187579 Active 2023 Zaire Rodriguez DPM [address], [place], [address] , [facility] 4 14:39:14 Ingrowing toenail 309822567 Active 2024 Zaire Rodriguez DPM [address], [place], [address] , [facility] - [facility] 5 16:18:08 Pain of toes of bilateral feet 9609282022961 9102 Active 2024 Zaire Rodriguez DPM [address], [place], [address] , [facility] 5 16:18:14 Problem Notes None recorded. Procedures Surgical History Date Name Laterality Status Provider Name and Address Organization Details Recorded Time 10/12/19 25 Nail Debridement completed Zaire Rodriguez DPM [address], [place], [address], [facility] 10/12/2024 16:17:42 06/29/20 24 Callus Debridement 2-4 completed Zaire Rodriguez DPM [address], [place], [address], [facility] 06/29/2024 14:38:50 section completed Annabel Tejada [place] [facility] 06/29/2024 14:05:33 section completed Annabel Tejada [place] [facility] 06/29/2024 14:05:33 section completed Annabel Tejada [place] [facility] 06/29/2024 14:05:34 section completed Annabel PATINO - [facility] [place] [facility] 06/29/2024 14:05:36 Imaging Results None recorded. Procedure Notes None recorded. Medical Equipment None Reported. Allergies Allergen ID Allergen Name Allergen Category Reaction Reaction Severity Criticality Documentation Date Start Date Code Code System Note Provider Name and Address Organization Details Recorded Time 98783 codeine medicatio n Not available Not available Not available 06/29/2024 2670 RxNorm Annabel Tejada null, [facility] 14:01:47 Medications Name Sig Start Date Stop Date Status Note LastModified by Organization Details LastModified Time cyclobenzap rine 10 mg tablet active Not Available Not Available Not Available amoxicillin 500 mg capsule 06/29 completed Not Available Not Available Not Available furosemide 40 mg tablet active Not Available Not Available Not Available methocarbam ol 500 mg tablet TAKE 1 TABLET BY MOUTH EVERY 6 HOURS NEEDED active Not Available Not Available No t Available estazolam 2 mg tablet TAKE 1 TABLET BY MOUTH EVERY DAY AT BEDTIME FOR 30 DAYS active Not Available Not Available No t Available ipratropium 0.5 mg-albutero l 3 mg (2.5 mg base)/3 mL nebulizatio n soln active Not Available Not Available Not Available albuterol sulfate 2.5 mg/3 mL (0.083 %) solution for nebulizatio n active Not Available Not Available Not Available trazodone 50 mg tablet active Not Available Not Available Not Available azithromyci n 250 mg tablet TAKE 2 TABLETS BY MOUTH DAILY ON THE FIRST DAY THEN 1 TABLET DAILY FOR 4 DAYS FOR A TOTAL OF 5 DAYS active Not Available Not Available No t Available Lidocaine Viscous 2 % mucosal solution 06/29 completed Not Available Not Available Not Available benzonatate 200 mg capsule active Not Available Not Available Not Available hydrocodone 5 mg-acetamin ophen 325 mg tablet 10/12 completed Not Available Not Available Not Available clonazepam 0.5 mg tablet TAKE 1 TABLET BY MOUTH DAILY NEEDED active Not Available Not Available No t Available gabapentin 400 mg capsule active Not Available Not Available Not Available prednisone 5 mg tablet TAKE DIRECTED BY PHYSICIAN active Not Available Not Available No t Available pimecrolimu s 1 % topical cream APPLY TWICE DAILY TO RASH FOR UP TO 4 WEEKS, THEN USE TWICE A WEEK FOR UP TO 3 MONTHS active Not Available Not Available No t Available oxycodone 5 mg/5 mL oral solution active Not Available Not Available Not Available gabapentin 250 mg/5 mL oral solution TAKE 8 ML BY MOUTH 2 TIMES DAILY FOR 30 DAYS active Not Available Not Available No t Available topiramate 25 mg tablet 10/12 completed Not Available Not Available Not Available tramadol 50 mg tablet 10/12 completed Not Available Not Available Not Available amoxicillin 500 mg tablet TAKE 1 TABLET 3 TIMES A DAY UNTIL FINISHED 06/29 completed Not Available Not Available Not Available simvastatin 40 mg tablet active Not Available Not Available Not Available lidocaine-p rilocaine 2.5 %-2.5 % topical cream 10/12 completed Not Available Not Available Not Available lamotrigine 25 mg tablet active Not Available Not Available Not Available ketorolac 10 mg tablet 10/12 completed Not Available Not Available Not Available oxycodone-a cetaminophe n 5 mg-325 mg tablet 06/29 completed Not Available Not Available Not Available bupropion HCl 100 mg tablet active Not Available Not Available Not Available amoxicillin 875 mg tablet 06/29 completed Not Available Not Available Not Available potassium chloride ER 20 mEq tablet,exte nded release(par t/cryst) 10/12 completed Not Available Not Available Not Available temazepam 15 mg capsule active Not Available Not Available Not Available topiramate 25 mg sprinkle capsule 10/12 completed Not Available Not Available Not Available cephalexin 500 mg capsule 06/29 completed Not Available Not Available Not Available pantoprazol e 40 mg tablet,soila yed release active Not Available Not Available Not Available venlafaxine 37.5 mg tablet active Not Available Not Available Not Available esomeprazol e magnesium 40 mg capsule,del ayed release active Not Available Not Available Not Available buspirone 10 mg tablet active Not Available Not Available Not Available gabapentin 300 mg capsule 10/12 completed Not Available Not Available Not Available codeine 10 mg-guaifene sin 100 mg/5 mL oral liquid active Not Available Not Available Not Available lisinopril 5 mg tablet active Not Available Not Available Not Available mupirocin 2 % topical ointment 06/29 completed Not Available Not Available Not Available furosemide 20 mg tablet active Not Available Not Available Not Available ergocalcife rol (vitamin D2) 1,250 mcg (50,000 unit) capsule active Not Available Not Available Not Available lorazepam 1 mg tablet 10/12 completed Not Available Not Available Not Available epinephrine 0.3 mg/0.3 mL injection, auto-inject or active Not Available Not Available Not Available ibuprofen 600 mg tablet 06/29 completed Not Available Not Available Not Available cefuroxime axetil 500 mg tablet TAKE 1 TABLET BY MOUTH TWICE DAILY active Not Available Not Available No t Available methylpredn isolone 4 mg tablets in a dose pack TAKE 6 TABLETS ON DAY 1 DIRECTED ON PACKAGE AND DECREASE BY 1 TAB EACH DAY FOR A TOTAL OF 6 DAYS active Not Available Not Available No t Available albuterol sulfate HFA 90 mcg/actuati on aerosol inhaler active Not Available Not Available Not Available hydroxyzine HCl 10 mg tablet TAKE 1 TABLET BY MOUTH TWICE A DAY NEEDED active Not Available Not Available No t Available ondansetron 4 mg disintegrat ing tablet active Not Available Not Available N ot Available topiramate 100 mg tablet 10/12 completed Not Available Not Available Not Available fluticasone propionate 50 mcg/actuati on nasal spray,suspe nsion 10/12 completed Not Available Not Available Not Available doxycycline hyclate 100 mg tablet TAKE 1 TABLET BY MOUTH TWICE DAILY 06/29 completed Not Available Not Available Not Available lamotrigine 100 mg tablet active Not Available Not Available Not Available amoxicillin 875 mg-potassiu m clavulanate 125 mg tablet 06/29 completed Not Available Not Available Not Available oxycodone 5 mg tablet TAKE 1 TABLET BY MOUTH DAILY NEEDED FOR SEVERE PAIN active Not Available Not Available No t Available sumatriptan 6 mg/0.5 mL subcutaneou s pen injector active Not Available Not Available Not Available Pneumovax-2 3 25 mcg/0.5 mL injection syringe 10/12 completed Not Available Not Available Not Available aripiprazol e 5 mg tablet active Not Available Not Available Not Available eszopiclone 3 mg tablet active Not Available Not Available Not Available chlorhexidi ne gluconate 0.12 % mouthwash active Not Available Not Available No t Available aripiprazol e 2 mg tablet active Not Available Not Available Not Available Adacel (Tdap Adolesn/Gm lt)(PF)2 Lf-(2.5-5-3 -5)-5 Lf/0.5 mL IM syringe 10/12 completed Not Available Not Available Not Available vitamin E (dl, acetate) 180 mg (400 unit) capsule active Not Available Not Available Not Available Hizentra 2 gram/10 mL (20 %) subcutaneou s solution active Not Available Not Available N ot Available Hizentra 1 gram/5 mL (20 %) subcutaneou s solution 10/12 completed Not Available Not Available Not Available Hizentra 10 gram/50 mL (20 %) subcutaneou s solution active Not Available Not Available N ot Available potassium chloride ER 20 mEq tablet,exte nded release active Not Available Not Available Not Available Belsomra 20 mg tablet active Not Available Not Available No t Available Trintellix 20 mg tablet active Not Available Not Available Not Available Vitals Date Recorded Body height Body mass index (BMI) Body weight Provider Name and Address Organization Details Last Updated DateTime 06/29/2024 154.94 cm 30.8 kg/m2 22436.56 g Annabel Tejada [facility] [employer] 06/29/2024 14:01:34 Date Recorded Heart rate Respiratory rate Oxygen saturation Oxygen saturation in Arterial blood by Pulse oximetry Systolic blood pressure Diastolic blood pressure Provider Name and Address Organization Details Last Updated DateTime 4 79 /min 14 /min 98 % 98 % 128 mm[Hg] 69 mm[Hg] Adelina Edmonds [facility] 4 14:10:31 Date Recorded Body height Body mass index (BMI) Body weight Heart rate Respiratory rate Oxygen saturation Oxygen saturation in Arterial blood by Pulse oximetry Systolic blood pressure Diastolic blood pressure Provider Name and Address Organization Details Last Updated DateTime 5 154.94 cm 30.8 kg/m2 61267.5 6 g 87 /min 14 /min 98 % 98 % 130 mm[Hg] 61 mm[Hg] Adelina Edmonds [facility] [employer] 5 15:18:15 Social History Question Answer Notes LastModified by Organizat ion Details LastModified Time Tobacco Smoking Status Former Smoker Annabel castro [facility] 06/29/2024 14:05:10 What Is Your Level Of Alcohol Consumption? None Information not available 06/29/2024 When Did You Quit Smoking? 16+yearssinc elastcigaret te Information not available 06/29/2024 How Many Years Have You Smoked Tobacco? 43 Information not available 06/29/2024 Sex: Unknown Functional Status None recorded. Mental Status None recorded. Family History Relationship Description Onset Age of this Age Resolved Age Notes LastModified by Organization Details LastModified Time Unspecified Relation Diabetes mellitus niece Not available 2023 14:03:48 Mother Arthritis [email or web address] Not availab le 10/12/2024 15:14:05 Mother Hypertensive disorder Not available 2023 14:04:09 Mother Heart disease Not available 2023 14:04:31 Mother Blood coagulation disorder [email or web address] Not available 2024 15:14:05 Father Hypertensive disorder Not available 2023 14:04:09 Father Heart disease Not available 2023 14:04:31 Brother Heart disease Not available 2023 14:04:31 Sister Heart disease Not available 2023 14:04:31 Medical History Condition Response LUNG DISEASE/DISORDER Y HIGH CHOLESTEROL / HYPERLIPIDEMIA Y BACK / NECK PROBLEMS Y DEPRESSION (INCLUDING POST ) Y OBESITY Y ARTHRITIS Y HEADACHES/MIGRAINES Y DIZZINESS Y ANXIETY DISORDER Y Gynecological HistoryNo gynecological history recorded. Obstetrics History GPAL:G 0 P 0 0 0 0 Past Encounters Encounter ID Performer Location Encounter Start Date Encounter Closed Date Diagnosis/Indication Diagnosis SNOMED-CT Code Diagnosis ICD10 Code Diagnosis Note [id number] Zaire Rodriguez DPM [facility] [place] [address] [place] [address] 06/29/2024 13:54:38 07/03/2024 11:39:30 Curly toe 705130245 M20.5X9 as above [place] of toe 53265101 L84 debrided both feetrecomm end offloading Reviewed treatment options in detailPati ent defers surgeryRec ommend wide shoe gearRecomm end silicone toe cap Dystrophia unguium 30891 009 L60.3 nails debrided without incident [id number] Zaire Rodriguez DPM [facility] [place] [address] [place] [address] 10/12/2024 15:12:27 10/17/2024 15:29:47 Pain of toes of bilateral feet 5509158417 9385904 M79.674 M79.675 as above Ingrowing toenail 988468 009 L60.0 both corners, both great toesnail debridemen t of the both nail cornersdis cussed treatment optionscon tinue with conservati ve therapyfol low-up 3 months Health Concerns Section Related Observation LastModified by Organization Detai ls LastModified Time None Recorded Concern Status LastModified by Organization Details LastModified Time None Recorded Advance Directives Directive None Recorded Payers Encounter Date Sequence Insurance Name Policy Number Policy Hong Covered Member ID Hong Member ID Guarantor Name 06/29/2024 1 [employer] (MEDICARE REPLACEMENT/A DVANTAGE - PPO) Vangie Cha [id number] Vangie Cha 10/12/2024 1 [employer] (MEDICARE REPLACEMENT/A DVANTAGE - PPO) Vangie Cha [id number] Vangie Cha Notes Date Note Type Note Provider Name and Address Organization Details Recorded Time 06/29/2024 text/html . Patient is a 69-year-old female she presents to office with complaints of bilateral 5th toe pain. Patient states that she has pain at the toes which he has developed a callus on the inside medial aspect of the 5th toes bilaterally she denies any redness, open ulcers. Patient states that she did buy some offloading foam pads she has been seen by Podiatry in the past but denied any surgery. Patient states that she is here for 2nd opinion. Patient denies any other complaints. Zaire Rodriguez DPM [address] [facility] [facility] [address], [place], [address], [facility] [employer] 06/29/2024 14:40:22 10/12/2024 text/html . Patient is a 69-year-old female who returns the office for complaints of ingrown toenail pain to both great toe she denies any signs of infection she states that she has mild discomfort that is sharp in nature to the nail corners with walking. Patient states she routinely gets pedicures and they are able to remove the nail corners but she has not been able to go. Patient denies any other complaints. Zaire Rodriguez, JARRELL [address] [facility] [facility] [address], [place], [address], [facility] 10/12/2024 16:33:45 OBGyn Episode No OBEpisode recorded.
--- OUTSIDE RECORDS SUMMARY | 2024-11-01 13:34 | XMS_ITS | Referral Summary ---
Author Organization [facility] Health Address [address] [place] [address] Care Team Providers Care Jacket Changer Name Role Phone Kain Shields DO Primary Care Provider [phone] Source Comments [facility] Affiliates and Associated Physician Practices is amultiple site organization consisting of ambulatory clinics and hospital sitesin [place], [place]. This disclosure is being madepursuant to the Care Everywhere program and may not contain all information available regarding this patient. Last updated 18.[facility] Encounters Date Type Department Care Team Description 08/10/2024 Telephone [facility] Weight Management Services [id number] [facility], [facility] [address] [place] [address] Vikki Salvador APRN-CNP Results 08/04/2024 Refill [facility] [id number] [facility], [facility] [address] [place], [place] [id number] Kayla Schumacher APRN-CNP Refill Request 08/02/2024 Travel 08/02/2024 1:00 PM CDT Office Visit [facility] Weight Management Services [address] [facility], [address] [place] [address] [place], Vikki L, GRIEVANCE COORDINATOR-PRODUCTION CONTROLLER Constipation, unspecified constipation type (Primary Dx); S/P biliopancreatic diversion with duodenal switch; Vitamin deficiency; Weight loss; Dietary counseling and surveillance; Postsurgical malabsorption (HCC); History of morbid obesity from Last 3 Months Allergies Active Allergy Reactions Criticality Noted Date [...] fluticasone propionate (Flonase) 50 MCG/ACT nasal spray [place] 2 (two) sprays into each nostril once daily Active vitamin D, ergocalciferol, (Drisdol) 1.25 MG (78777 UT) capsule Take 1 (one) capsule by [...] NAUSEA AND VOMITING 30 tablet 3 08/02/2024 5 Active Active Problems Problem Noted Date Diagnosed Date Morbid obesity 02/01/2024 Social History Tobacco Use Types Packs/Day Years [...] Mass Index 30.12 08/02/2024 12:40 PM CDT Functional Status Functional Status Response Date of Assess ment Is person deaf or have serious hearing difficult y? No 02/01/2024 Is person blind or have serious difficulty seein g? No 02/01/2024 Does person have serious dif ficulty walking/climbing stairs? No 02/01/2024 Does person have difficulty dressing/bathing? No 02/01/2024 Does person have difficulty doing errands alone? No 02/01/2024 Cognitive Status Response Date of Assessm ent Does person have difficulty concentrating/remembering/making decisions? No 02/01/2024 Plan of Treatment Upcoming Encounters Date Type Department Care Team (Late st Contact Info) Description 01/31/2025 1:00 PM CDT Office Visit [facility] Health Weight Management Services [address] [facility], [address] [place] [id number] Vikki Salvador, GRIEVANCE COORDINATOR-PRODUCTION CONTROLLER [address] [facility] [address] [place] [id number] Procedures Procedure Name Priority Date/Time Associated Diagnosis [...] D deficiency has been defined by the [place] of Medicine and an Endocrine Society practice guideline as a level of serum 25-OH vitamin D less than 20 ng/mL (1,2). The Endocrine Society went on to further define vitamin D insufficiency as a level between 21 and 29 ng/mL (2). 1. IOM ([place] of Medicine). 2010. Dietary reference ?? intakes for calcium and D. [place]: The ?? [employer]. 2. Rahat MF, Jagdeep NC, Alonso ARAYA, et al. ?? Evaluation, treatment, and prevention of vitamin D ?? deficiency: an Endocrine Society clinical practice ?? guideline. JCEM. 2010; 96(7):1911-30. Blood BLOOD SPECIMEN / Unknown 08/02/2024 1:38 PM CDT 08/02/2024 Narrative [facility] INSURANCE BILL - 08/03/2024 9:14 AM CDT Performed at: ??01 - [facility] ??[id number] Meat Process Worker: Chavez Benavides PhD, Phone: ??[phone] Vikki Salvador APRN-PRODUCTION CONTROLLER LAB - CHEMISTRY O RDERABLES Performing Organization Address City/State/[facility] Co de Phone Number [facility] INSURANCE BILL [address] [place] [address] * IRON + TIBC PANEL (08/02/2024 1:38 [...] 8:20 AM CDT Performed at: ??01 - [facility] ??[id number] Meat Process Worker: Chavez Benavides PhD, Phone: ??[phone] Vikki Salvador APRN-[facility] LAB - CHEMISTRY O RDERABLES Performing Organization Address [facility] Co de Phone Number [facility] INSURANCE BILL [address] [place] [address] * FOLATE (08/02/2024 1:38 PM CDT) Folate 11.8 >3.0 ng/mL [facility] INSURANCE BILL Comment: A serum folate concentration of less than 3.1 ng/mL is considered to represent clinical deficiency. Blood BLOOD SPECIMEN / Unknown 08/02/2024 1:38 PM CDT 08/02/2024 Narrative [facility] INSURANCE BILL - 08/03/2024 10:13 AM CDT Performed at: ??01 - [facility] ??[id number] Meat Process Worker: Chavez Benavides PhD, Phone: ??[phone] Vikki Salvador APRN-[facility] LAB - CHEMISTRY O RDERABLES Performing Organization Address [facility] Co de Phone Number [facility] INSURANCE BILL [address] [place] [address] * VITAMIN K1 (08/02/2024 1:37 PM CDT) Vitamin K1 0.48 0.10 - 2.20 ng/mL [facility] Blood BLOOD SPECIMEN / Unknown 08/02/2024 1:37 PM CDT 08/02/2024 Narrative [facility] INSURANCE BILL - 08/09/2024 10:13 AM CAREER PORTALS TEACHER Test(s) 190392-[id number] K1 was developed and its performance characteristics determined by [employer]. It has not been cleared or approved by the Food and Drug Administration. Performed at: ??01 - [address] ??[id number] Meat Process Worker: Edgard Bower MD, Phone: ??[phone] Vikki Salvador GRIEVANCE COORDINATOR-PRODUCTION CONTROLLER LAB - CHEMISTRY O RDERABLES [facility] INSURANCE BILL [address] [place] [address] * ZINC BLOOD (08/02/2024 1:37 PM CDT) Zinc, Plasma or Serum 56 44 - 115 ug/dL [facility] INSURANCE BILL Comment:Detection Limit = 5 Blood BLOOD SPECIMEN / Unknown 08/02/2024 1:37 PM CDT 08/02/2024 Narrative [facility] INSURANCE BILL - 08/05/2024 7:12 AM CDT Test(s) [id number]-Buhu, Plasma or Serum was developed and its performance characteristics determined by [employer]. It has not been cleared or approved by the Food and Drug Administration. Performed at: ??01 - [address] ??[id number] Meat Process Worker: Edgard Bower MD, Phone: ??[phone] Vikki Tinsley [place] GRIEVANCE COORDINATOR-PRODUCTION CONTROLLER LAB - CHEMISTRY O RDERABLES Performing Organization Address City/[facility]/ZIP Co de Phone Number [facility] INSURANCE BILL [address] [place] [address] * VITAMIN A (08/02/2024 1:37 PM CDT) Vitamin A 24.7 22.0 - 69.5 ug/dL [facility] INSURANCE BILL Comment: Reference intervals for vitamin A determined from [facility] internal studies. Individuals with vitamin A less than 20 ug/dL are considered vitamin A deficient and those with serum concentrations less than 10 ug/dL are considered severely deficient. This test was developed and its performance characteristics determined by [employer]. It has not been cleared or approved by the Food and Drug Administration. Blood BLOOD SPECIMEN / Unknown 08/02/2024 1:37 PM CDT 08/02/2024 Narrative [facility] INSURANCE BILL - 08/09/2024 3:10 PM CAREER PORTALS TEACHER Performed at: ??01 - [address] ??[id number] Meat Process Worker: Edgard Bower MD, Phone: ??[phone] Vikki Salvador [facility] - CHEMISTRY O DEBI Performing Organization Address [facility] Co de Phone Number [facility] INSURANCE BILL [address] [place] [address] * VITAMIN E (08/02/2024 1:37 PM CDT) Vitamin E Alpha Tocopherol 9.4 9.0 - 29.0 mg/L [facility] INSURANCE BILL Vitamin E Gamma Tocopherol 0.9 0.5 - 4.9 mg/L [facility] INSURANCE BILL Comment: Reference intervals for alpha and gamma-tocopherol determined from National Health and Nutrition Examination Survey, 5496-5072. Individuals with alpha-tocopherol levels less than 5.0 mg/L are considered vitamin E deficient. Blood BLOOD SPECIMEN / Unknown 08/02/2024 1:37 PM CDT 08/02/2024 Narrative [facility] INSURANCE BILL - 08/09/2024 3:10 PM CAREER PORTALS TEACHER Test(s) [id number]-Fokeezd E(Alpha Tocopherol); 550452- Vitamin E(Gamma Tocopherol) was developed and its performance characteristics determined by [facility]. It has not been cleared or approved by the Food and Drug Administration. Performed at: ??01 - [address] ??[id number] Meat Process Worker: Edgard Bower MD, Phone: ??[phone] Vikki Salvador [facility] - CHEMISTRY O DEBI Performing Organization Address [facility] Co de Phone Number [facility] INSURANCE BILL [address] [place] [address] * (ABNORMAL) VITAMIN B1 (08/02/2024 1:37 PM CDT) Vitamin B1 Whole Blood 205.1(H) 66.5 - 200.0 nmol/L [facility] INSURANCE BILL Blood BLOOD SPECIMEN / Unknown 08/02/2024 1:37 PM CDT 08/02/2024 Narrative [facility] INSURANCE BILL - 08/07/2024 9:07 PM CAREER PORTALS TEACHER Test(s) [id number]-Oxz. B1, Whole Blood was developed and its performance characteristics determined by [facility]. It has not been cleared or approved by the Food and Drug Administration. Performed at: ??01 - [facility] ??[id number] Meat Process Worker: Edgard Bower MD, Phone: ??[phone] Vikki Salvador APRN-[facility] LAB - CHEMISTRY O RDERABLES Performing Organization Address [facility] Co de Phone Number [facility] INSURANCE BILL [address] [place] [address] * SELENIUM (08/02/2024 1:37 PM CDT) Selenium 107 93 - 198 ug/L [facility] INSURANCE BILL Blood BLOOD SPECIMEN / Unknown 08/02/2024 1:37 PM CDT 08/02/2024 Narrative [facility] INSURANCE BILL - 08/16/2024 5:09 PM CAREER PORTALS TEACHER Test(s) [id number]-[id number], Serum/Plasma was developed and its performance characteristics determined by [employer]. It has not been cleared or approved by the Food and Drug Administration. Performed at: ??01 - [facility] [address], [place], [place] ??[id number] Meat Process Worker: Denise Ellis MD, Phone: ??[phone] Vikki Salvador APRN-[facility] LAB - CHEMISTRY O RDERABLES Performing Organization Address [facility] Co de Phone Number [facility] INSURANCE BILL [address] [place] [address] * PTH INTACT (08/02/2024 1:37 PM CDT) PTH Intact 64 15 - 65 pg/mL [facility] INSURANCE BILL Blood BLOOD SPECIMEN / Unknown 08/02/2024 1:37 PM CDT 08/02/2024 Narrative [facility] INSURANCE BILL - 08/03/2024 11:13 AM CDT Performed at: ??01 - [facility] [address] [place], [place] ??[id number] Meat Process Worker: Chavez Benavides PhD, Phone: ??[phone] Vikki Salvador [facility] - CHEMISTRY O RDERABLES Performing Organization Address [facility] Co de Phone Number [facility] INSURANCE BILL [address] [place] [address] * COPPER BLOOD (08/02/2024 1:37 PM CDT) Pathologist [facility] Copper 83 80 - 158 ug/dL [facility] INSURANCE BILL Comment:Detection Limit = 5 Blood BLOOD SPECIMEN / Unknown 08/02/2024 1:37 PM CDT 08/02/2024 Narrative [facility] INSURANCE BILL - 08/05/2024 7:12 AM CDT Test(s) 147019-Qrgslh, Serum or Plasma was developed and its performance characteristics determined by [facility]. It has not been cleared or approved by the Food and Drug Administration. Performed at: ??01 - [facility] ??[id number] Meat Process Worker: Edgard Bower MD, Phone: ??[phone] Vikki Salvador [facility] - CHEMISTRY O RDERAMICHAELA Performing Organization Address [facility] Co de Phone Number [facility] INSURANCE BILL [address] [place] [address] * (ABNORMAL) CBC W/O DIFFERENTIAL (08/02/2024 1:37 PM CDT) Pathologist [facility] WBC 6.5 3.4 - 10.8 x10E3/uL [facility] [...] AM CDT Performed at: ??01 - [facility] [place] [address] [place], [place] ??[id number] Meat Process Worker: Chavez Benavides PhD, Phone: ??[phone] Vikki Salvador APRN-PRODUCTION CONTROLLER LAB - HEMATOLOGY ORDERABLES [facility] INSURANCE BILL [address] [place] [address] * (ABNORMAL) COMPREHENSIVE METABOLIC PANEL (08/02/2024 1:37 [...] 9:14 AM CDT Performed at: ??01 - [facility] ??[id number] Meat Process Worker: Chavez Benavides PhD, Phone: ??[phone] Vikki Salvador APRN-PRODUCTION CONTROLLER LAB - CHEMISTRY O RDERABLES Performing Organization Address City/[facility]/ZIP Co de Phone Number [facility] INSURANCE BILL [address] [place] [address] * PREALBUMIN (08/02/2024 1:37 PM CDT) Prealbumin 14 9 - 32 mg/dL [facility] INSURANCE BILL Blood BLOOD SPECIMEN / Unknown 08/02/2024 1:37 PM CDT 08/02/2024 Narrative [facility] INSURANCE BILL - 08/03/2024 1:10 PM CDT Performed at: ??01 - [address] ??[id number] Meat Process Worker: Chavez Benavides PhD, Phone: ??[phone] Vikki Salvador APRN-PRODUCTION CONTROLLER LAB - CHEMISTRY O RDERABLES Performing Organization Address [facility] Co de Phone Number [facility] INSURANCE BILL [address] [place] [address] * MAGNESIUM BLOOD (08/02/2024 1:37 PM CDT) Magnesium 1.9 1.6 - 2.3 mg/dL [facility] INSURANCE BILL Blood BLOOD SPECIMEN / Unknown 08/02/2024 1:37 PM CDT 08/02/2024 Narrative [facility] INSURANCE BILL - 08/03/2024 10:13 AM CDT Performed at: ??01 - [facility] ??[id number] Meat Process Worker: Chavez Benavides PhD, Phone: ??[phone] Vikki Salvador APRN-PRODUCTION CONTROLLER LAB - CHEMISTRY O RDERABLES Performing Organization Address City/[facility]/ZIP Co de Phone Number [facility] INSURANCE BILL [address] [place] [address] * (ABNORMAL) VITAMIN B12 (08/02/2024 1:37 PM CDT) Vitamin B12 1,447(H) 232 - 1,245 pg/mL [facility] INSURANCE BILL Blood BLOOD SPECIMEN / Unknown 08/02/2024 1:37 PM CDT 08/02/2024 Narrative [facility] INSURANCE BILL - 08/03/2024 11:13 AM CDT Performed at: ??01 - [facility] [address] ??[id number] Meat Process Worker: Chavez Benavides PhD, Phone: ??[phone] Vikki Salvador APRN-PRODUCTION CONTROLLER LAB - CHEMISTRY O RDERABLES Performing Organization Address [facility] Co de Phone Number [facility] INSURANCE BILL [address] [place] [address] * FERRITIN (08/02/2024 1:37 PM CDT) Ferritin 16 15 - 150 ng/mL [facility] INSURANCE BILL Blood BLOOD SPECIMEN / Unknown 08/02/2024 1:37 PM CDT 08/02/2024 Narrative [facility] INSURANCE BILL - 08/03/2024 10:13 AM CDT Performed at: ??01 - [facility] [place] [address] [place], [place] ??[id number] Meat Process Worker: Chavez Benavides PhD, Phone: ??[phone] Vikki Salvador APRN-PRODUCTION CONTROLLER LAB - CHEMISTRY O RDERABLES [facility] INSURANCE BILL [address] [place] [address] from Last 3 Months Advance Directives * Full Code (Latest Code Status on File) Date Activated Date Inactivated Comments 02/01/2024 2:43 PM 02/02/2024 4:24 PM Care Teams Jacket Changer Relationship Specialty Start Date End Date Kain Shields DO [address] [facility] [address] [place] [id number] PCP - General Internal Medicine 07/22/23
--- OUTSIDE RECORDS SUMMARY | 2024-11-01 13:34 | XMS_ITS | Patient Health Summary ---
Author Organization [facility] Address [address] [place] [address] Care Team Providers Care Certified Detention Deputy Name Role Phone Kain Shields DO Primary Care Provider [phone] Note from [facility],non-owned Affiliates and Associated Physician Practices is amultiple site organization consisting of ambulatory clinics and hospital sitesin [place], [place] and [place]. This disclosure is being madepursuant to the Care Everywhere program and may not contain all information available regarding this patient. Last updated 18.[facility] Allergies * Hydrocodone(Itching) Medications * Be aware that medications may not be up to date on this document. Alwaysverify current medications with the patient. * albuterol (Proventil;Ventolin) (2.5 MG/3ML) 0.083% nebulizer solution(Started 04/22/2023) * albuterol HFA (Proventil; Ventolin; Proair) 108 (90 Base) MCG/ACT inhaler (Started 07/21/2023) Inhale 2 (two) puffs by mouth every 6 hours as needed for Wheezing * aspirin EC (Ecotrin) 81 MG tablet Take 1 (one) tablet by mouth once daily * busPIRone (Buspar) 10 MG tablet(Started 07/01/2023) Take 1 (one) tablet by mouth 2 times daily * esomeprazole (NexIUM) 40 MG capsule(Started 06/08/2023) Take 1 (one) capsule by mouth daily before breakfast * gabapentin (Neurontin) 400 MG capsule(Started 07/01/2023) Take 1 (one) capsule by mouth 2 times daily * lamoTRIgine (LaMICtal) 50 MG TABS(Started 06/29/2022) Take 1 (one) Half Tablet by mouth 2 times daily * lisinopril (Prinivil; Zestril) 5 MG tablet(Started 07/01/2023) Take 1 (one) tablet by mouth once daily * simvastatin (Zocor) 40 MG tablet(Started 06/03/2023) Take 1 (one) tablet by mouth once daily * Belsomra 20 MG tablet(Started 04/27/2023) Take 1 (one) tablet by mouth at bedtime * Trintellix 20 MG tablet(Started 07/01/2023) Take 1 (one) tablet by mouth once daily * pimecrolimus (Elidel) 1 % cream(Started 11/01/2023) * hydrOXYzine HCl (Atarax) 10 MG tablet(Started 12/20/2023) Take 1 (one) tablet by mouth 2 times daily as needed * eszopiclone (Lunesta) 3 MG tablet(Started 12/20/2023) Take 1 (one) tablet by mouth at bedtime * clonazePAM (KlonoPIN) 0.5 MG tablet(Started 12/16/2023) Take 1 (one) tablet by mouth once daily as needed * Immune Globulin, Human, (HIZENTRA SC) Inject subcutaneously every 7 days * cetirizine (ZyrTEC) 10 MG chew tablet Take 1 (one) tablet by mouth once daily * fluticasone propionate (Flonase) 50 MCG/ACT nasal spray [place] 2 (two) sprays into each nostril once daily * vitamin D, ergocalciferol, (Drisdol) 1.25 MG (72811 UT) capsule(Started 01/18/2024) Take 1 (one) capsule by mouth every 7 days * acetaminophen (Tylenol) 160 MG/5ML solution(Started 02/02/2024) Take 20.3125 mL by mouth every 6 hours * cyclobenzaprine (Flexeril) 10 MG tablet(Started 02/02/2024) Take 1 (one) tablet by mouth every 8 hours as needed for Muscle Spasms Reasons: chronic back pain * gabapentin (Neurontin) 250 MG/5ML oral solution(Started 02/02/2024) Take 8 mL by mouth 2 times daily for 30 days * vitamin E (Tocopheryl) 400 UNIT capsule(Started 02/25/2024) Take 2 (two) capsules by mouth once daily * docusate sodium (Colace Clear) 50 MG capsule(Started 08/02/2024) Take 1 (one) capsule by mouth 3 times daily 1 refill by 08/02/2025 * ondansetron, disintegrating, (Zofran ODT) 4 MG tablet(Started 08/02/2024) DISSOLVE 1 TABLET ON THE TONGUE EVERY 6 HOURS NEEDED FOR NAUSEA AND VOMITING 3 refills by 08/02/2025 Active Problems Problem Noted Date Diagnosed Date [...] Mass Index 30.12 08/02/2024 12:40 PM CDT Procedures * VITAMIN D 25-HYDROXY(Performed 08/02/2024) Performed for Constipation, unspecified constipation type, S/P biliopancreatic diversion with duodenal switch, Vitamin deficiency, Weight loss, Dietary counseling and surveillance, Postsurgical malabsorption (HCC), History of morbid obesity * IRON + TIBC PANEL(Performed 08/02/2024) Performed for Constipation, unspecified constipation type, S/P biliopancreatic diversion with duodenal switch, Vitamin deficiency, Weight loss, Dietary counseling and surveillance, Postsurgical malabsorption (HCC), History of morbid obesity * FOLATE(Performed 08/02/2024) Performed for Constipation, unspecified constipation type, S/P biliopancreatic diversion with duodenal switch, Vitamin deficiency, Weight loss, Dietary counseling and surveillance, Postsurgical malabsorption (HCC), History of morbid obesity * PTH INTACT(Performed 08/02/2024) Performed for Constipation, unspecified constipation type, S/P biliopancreatic diversion with duodenal switch, Vitamin deficiency, Weight loss, Dietary counseling and surveillance, Postsurgical malabsorption (HCC), History of morbid obesity * SELENIUM(Performed 08/02/2024) Performed for Constipation, unspecified constipation type, S/P biliopancreatic diversion with duodenal switch, Vitamin deficiency, Weight loss, Dietary counseling and surveillance, Postsurgical malabsorption (HCC), History of morbid obesity * VITAMIN A(Performed 08/02/2024) Performed for Constipation, unspecified constipation type, S/P biliopancreatic diversion with duodenal switch, Vitamin deficiency, Weight loss, Dietary counseling and surveillance, Postsurgical malabsorption (HCC), History of morbid obesity * VITAMIN B1(Performed 08/02/2024) Performed for Constipation, unspecified constipation type, S/P biliopancreatic diversion with duodenal switch, Vitamin deficiency, Weight loss, Dietary counseling and surveillance, Postsurgical malabsorption (HCC), History of morbid obesity * VITAMIN B12(Performed 08/02/2024) Performed for Constipation, unspecified constipation type, S/P biliopancreatic diversion with duodenal switch, Vitamin deficiency, Weight loss, Dietary counseling and surveillance, Postsurgical malabsorption (HCC), History of morbid obesity * VITAMIN E(Performed 08/02/2024) Performed for Constipation, unspecified constipation type, S/P biliopancreatic diversion with duodenal switch, Vitamin deficiency, Weight loss, Dietary counseling and surveillance, Postsurgical malabsorption (HCC), History of morbid obesity * VITAMIN K1(Performed 08/02/2024) Performed for Constipation, unspecified constipation type, S/P biliopancreatic diversion with duodenal switch, Vitamin deficiency, Weight loss, Dietary counseling and surveillance, Postsurgical malabsorption (HCC), History of morbid obesity * ZINC BLOOD(Performed 08/02/2024) Performed for Constipation, unspecified constipation type, S/P biliopancreatic diversion with duodenal switch, Vitamin deficiency, Weight loss, Dietary counseling and surveillance, Postsurgical malabsorption (HCC), History of morbid obesity * PREALBUMIN(Performed 08/02/2024) Performed for Constipation, unspecified constipation type, S/P biliopancreatic diversion with duodenal switch, Vitamin deficiency, Weight loss, Dietary counseling and surveillance, Postsurgical malabsorption (HCC), History of morbid obesity * MAGNESIUM BLOOD(Performed 08/02/2024) Performed for Constipation, unspecified constipation type, S/P biliopancreatic diversion with duodenal switch, Vitamin deficiency, Weight loss, Dietary counseling and surveillance, Postsurgical malabsorption (HCC), History of morbid obesity * FERRITIN(Performed 08/02/2024) Performed for Constipation, unspecified constipation type, S/P biliopancreatic diversion with duodenal switch, Vitamin deficiency, Weight loss, Dietary counseling and surveillance, Postsurgical malabsorption (HCC), History of morbid obesity * COPPER BLOOD(Performed 08/02/2024) Performed for Constipation, unspecified constipation type, S/P biliopancreatic diversion with duodenal switch, Vitamin deficiency, Weight loss, Dietary counseling and surveillance, Postsurgical malabsorption (HCC), History of morbid obesity * COMPREHENSIVE METABOLIC PANEL(Performed 08/02/2024) Performed for Constipation, unspecified constipation type, S/P biliopancreatic diversion with duodenal switch, Vitamin deficiency, Weight loss, Dietary counseling and surveillance, Postsurgical malabsorption (HCC), History of morbid obesity * CBC W/O DIFFERENTIAL(Performed 08/02/2024) Performed for Constipation, unspecified constipation type, S/P biliopancreatic diversion with duodenal switch, Vitamin deficiency, Weight loss, Dietary counseling and surveillance, Postsurgical malabsorption (HCC), History of morbid obesity * FL UGI SERIES(Performed 02/02/2024) Performed for Morbid obesity (HCC) * VITAMIN D 25-HYDROXY(Performed 02/02/2024) * CBC W AUTO DIFFERENTIAL(Performed 02/02/2024) * BASIC METABOLIC PANEL (CALCIUM TOTAL)(Performed 02/02/2024) * PT EVAL AND TREAT(Performed 02/01/2024) * ENDOTRACHEAL TUBE NOTE(Performed 02/01/2024) * WA GASTRIC RESTRICTIVE PROC PARTIAL GASTRECTOMY(Performed 02/01/2024) * GLUCOSE - POINT OF CARE(Performed 02/01/2024) * BLOOD TYPE VERIFICATION(Performed 02/01/2024) * TYPE + SCREEN PANEL(Performed 01/18/2024) Performed for Preoperative examination * ZINC BLOOD(Performed 01/18/2024) Performed for Preoperative examination * VITAMIN K1(Performed 01/18/2024) Performed for Preoperative examination * VITAMIN D 25-HYDROXY(Performed 01/18/2024) Performed for Preoperative examination * VITAMIN E(Performed 01/18/2024) Performed for Preoperative examination * VITAMIN B12(Performed 01/18/2024) Performed for Preoperative examination * VITAMIN B1(Performed 01/18/2024) Performed for Preoperative examination * PREALBUMIN(Performed 01/18/2024) Performed for Preoperative examination * VITAMIN A(Performed 01/18/2024) Performed for Preoperative examination * SELENIUM(Performed 01/18/2024) Performed for Preoperative examination * PHOSPHORUS BLOOD(Performed 01/18/2024) Performed for Preoperative examination * MAGNESIUM BLOOD(Performed 01/18/2024) Performed for Preoperative examination * IRON + TRANSFERRIN PANEL(Performed 01/18/2024) Performed for Preoperative examination * FOLATE(Performed 01/18/2024) Performed for Preoperative examination * FERRITIN(Performed 01/18/2024) Performed for Preoperative examination * COPPER BLOOD(Performed 01/18/2024) Performed for Preoperative examination * COMPREHENSIVE METABOLIC PANEL(Performed 01/18/2024) Performed for Preoperative examination * CBC W AUTO DIFFERENTIAL(Performed 01/18/2024) Performed for Preoperative examination * EKG 12-LEAD(Performed 01/18/2024) Performed for Preoperative examination * CARDIAC RHYTHM STRIP ORDER(Performed 08/17/2023) * HELICOBACTER PYLORI UREASE (STL)(Performed 08/16/2023) Performed for Gastritis, presence of bleeding unspecified, unspecified chronicity, unspecified gastritis type, Morbid obesity (HCC) * WA EGD FLEX TRANSORAL W BX SNGL OR MULT(Performed 08/16/2023) * [place] ED EGD FLEX TRANSORAL DX(Performed 08/16/2023) * EGD(Performed 08/16/2023) Results * VITAMIN D 25-HYDROXY (08/02/2024 1:38 PM CDT) Only the most recent of3 resultswithin the time period is included. Vitamin D, 25 Hydroxy 47.3 30.0 - 100.0 ng/mL [facility] INSURANCE BILL Comment: Vitamin D deficiency has been defined by the [place] of Medicine and an Endocrine Society practice guideline as a level of serum 25-OH vitamin D less than 20 ng/mL (1,2). The Endocrine Society went on to further define vitamin D insufficiency as a level between 21 and 29 ng/mL (2). 1. IOM ([place] of Medicine). 2010. Dietary reference ?? intakes for calcium and D. [place]: The ?? [employer]. 2. Rahat MF, Jagdeep NC, Alonso ARAYA, et al. ?? Evaluation, treatment, and prevention of vitamin D ?? deficiency: an Endocrine Society clinical practice ?? guideline. JCEM. 2010; 96(7):1911-30. Blood BLOOD SPECIMEN / Unknown 08/02/2024 1:38 PM CDT 08/02/2024 Narrative [facility] INSURANCE BILL - 08/03/2024 9:14 AM CDT Performed at: ??01 - [address] ??[id number] Gaming Manager: Chavez Benavides PhD, Phone: ??[phone] Vikki Salvador GLASS DESIGNER-WEB CONTENT DEVELOPER LAB - CHEMISTRY O RDERABLES [facility] INSURANCE BILL [address] [place] [address] * IRON + TIBC PANEL (08/02/2024 1:38 [...] 8:20 AM CDT Performed at: ??01 - [address] ??[id number] Gaming Manager: Chavez Benavides PhD, Phone: ??[phone] Vikki Salvador [facility] - CHEMISTRY O RDERABLES Performing Organization Address [facility] de Phone Number [facility] INSURANCE BILL [address] [place] [address] * FOLATE (08/02/2024 1:38 PM CDT) Only the most recent of2 resultswithin the time period is included. Folate 11.8 >3.0 ng/mL [facility] INSURANCE BILL Comment: A serum folate concentration of less than 3.1 ng/mL is considered to represent clinical deficiency. Blood BLOOD SPECIMEN / Unknown 08/02/2024 1:38 PM CDT 08/02/2024 Narrative [facility] INSURANCE BILL - 08/03/2024 10:13 AM CDT Performed at: ??01 - [address] ??[id number] Gaming Manager: Chavez Benavides PhD, Phone: ??[phone] Vikki Salvador [facility] - CHEMISTRY O RDERABLES Performing Organization Address [facility] de Phone Number [facility] INSURANCE BILL [address] [place] [address] * VITAMIN K1 (08/02/2024 1:37 PM CDT) Only the most recent of2 resultswithin the time period is included. Vitamin K1 0.48 0.10 - 2.20 ng/mL [facility] INSURANCE BILL Blood BLOOD SPECIMEN / Unknown 08/02/2024 1:37 PM CDT 08/02/2024 Narrative [facility] INSURANCE BILL - 08/09/2024 10:13 AM ASSISTANT MANAGER RETAIL Test(s) 603075-Jimnplw K1 was developed and its performance characteristics determined by [employer]. It has not been cleared or approved by the Food and Drug Administration. Performed at: ??01 - [facility] ??[id number] Gaming Manager: Edgard Bower MD, Phone: ??[phone] Vikki Laureano Salvador APRN-[facility] LAB - CHEMISTRY O RDERABLES Performing Organization Address [facility] de Phone Number [facility] INSURANCE BILL [address] [place] [address] * ZINC BLOOD (08/02/2024 1:37 PM CDT) Only the most recent of2 resultswithin the time period is included. Zinc, Plasma or Serum 56 44 - 115 ug/dL [facility] INSURANCE BILL Comment:Detection Limit = 5 Blood BLOOD SPECIMEN / Unknown 08/02/2024 1:37 PM CDT 08/02/2024 Narrative [facility] INSURANCE BILL - 08/05/2024 7:12 AM CDT Test(s) [id number]-Eogz, Plasma or Serum was developed and its performance characteristics determined by [employer]. It has not been cleared or approved by the Food and Drug Administration. Performed at: ??01 - [facility] ??[id number] Gaming Manager: Edgard Bower MD, Phone: ??[phone] Vikki Salvador APRN-[facility] LAB - CHEMISTRY O RDERABLES Performing Organization Address [facility] Phone Number [facility] INSURANCE BILL [address] [place] [address] * VITAMIN A (08/02/2024 1:37 PM CDT) Only the most recent of2 resultswithin the time period is included. Vitamin A 24.7 22.0 - 69.5 ug/dL [facility] Comment: Reference intervals for vitamin A determined from [facility] internal studies. Individuals with vitamin A less than 20 ug/dL are considered vitamin A deficient and those with serum concentrations less than 10 ug/dL are considered severely deficient. This test was developed and its performance characteristics determined by [employer]. It has not been cleared or approved by the Food and Drug Administration. Blood BLOOD SPECIMEN / Unknown 08/02/2024 1:37 PM CDT 08/02/2024 Narrative [facility] INSURANCE BILL - 08/09/2024 3:10 PM ASSISTANT MANAGER RETAIL Performed at: ??01 - [facility] [address] ??[id number] Gaming Manager: Edgard Bower MD, Phone: ??[phone] Vikki Salvador APRN-[employer]ELOPER LAB - CHEMISTRY O RDERABLES Performing Organization Address [facility]/ZIP Co de Phone Number [facility] INSURANCE BILL [address] [place] [address] * VITAMIN E (08/02/2024 1:37 PM CDT) Only the most recent of2 resultswithin the time period is included. Vitamin E Alpha Tocopherol 9.4 9.0 - 29.0 mg/L [facility] INSURANCE BILL Vitamin E Gamma Tocopherol 0.9 0.5 - 4.9 mg/L [facility] INSURANCE BILL Comment: Reference intervals for alpha and gamma-tocopherol determined from National Health and Nutrition Examination Survey, 6133-1320. Individuals with alpha-tocopherol levels less than 5.0 mg/L are considered vitamin E deficient. Blood BLOOD SPECIMEN / Unknown 08/02/2024 1:37 PM CDT 08/02/2024 Narrative [facility] INSURANCE BILL - 08/09/2024 3:10 PM ASSISTANT MANAGER RETAIL Test(s) 522579-Jbvwlul E(Alpha Tocopherol); 223049- Vitamin E(Gamma Tocopherol) was developed and its performance characteristics determined by [employer].. It has not been cleared or approved by the Food and Drug Administration. Performed at: ??01 - [facility] [address] ??[id number] Gaming Manager: Edgard Bower MD, Phone: ??[phone] Vikki Salvador APRN-[employer]EL[employer] LAB - CHEMISTRY O RDERABLES Performing Organization Address [facility]/ZIP Co de Phone Number [facility] INSURANCE BILL [address] [place] [address] * (ABNORMAL) VITAMIN B1 (08/02/2024 1:37 PM CDT) Only the most recent of2 resultswithin the time period is included. [facility] Vitamin B1 Whole Blood 205.1(H) 66.5 - 200.0 nmol/L [facility] INSURANCE BILL Blood BLOOD SPECIMEN / Unknown 08/02/2024 1:37 PM CDT 08/02/2024 Narrative [facility] - 08/07/2024 9:07 PM ASSISTANT MANAGER RETAIL Test(s) 547555-Kfx. B1, Whole Blood was developed and its performance characteristics determined by [employer]. It has not been cleared or approved by the Food and Drug Administration. Performed at: ??01 - [facility] ??[id number] Gaming Manager: Edgard Bower MD, Phone: ??[phone] Vikki Salvador [facility] - CHEMISTRY O RDERAMICHAELA Performing Organization Address [facility] de Phone Number [facility] [address] [place] [address] * SELENIUM (08/02/2024 1:37 PM CDT) Only the most recent of2 resultswithin the time period is included. [facility] Selenium 107 93 - 198 ug/L [facility] INSURANCE BILL Blood BLOOD SPECIMEN / Unknown 08/02/2024 1:37 PM CDT 08/02/2024 Narrative [facility] - 08/16/2024 5:09 PM ASSISTANT MANAGER RETAIL Test(s) 376056-Qwusngag, Serum/Plasma was developed and its performance characteristics determined by [employer]. It has not been cleared or approved by the Food and Drug Administration. Performed at: ??01 - [facility] [address] [place], [place] ??[id number] Gaming Manager: Denise Ellis MD, Phone: ??[phone] Vikki Salvador [facility] - CHEMISTRY O RDERABLES Performing Organization Address [facility] de Phone Number [facility] [address] [place] [address] * PTH INTACT (08/02/2024 1:37 PM CDT) PTH Intact 64 15 - 65 pg/mL [facility] INSURANCE BILL Blood BLOOD SPECIMEN / Unknown 08/02/2024 1:37 PM CDT 08/02/2024 Narrative [facility] INSURANCE BILL - 08/03/2024 11:13 AM CDT Performed at: ??01 - [facility] [address] ??[id number] Gaming Manager: Chavez Benavides PhD, Phone: ??[phone] Vikki Salvador APRN-[employer] CONT[employer] DEVELOPER LAB - CHEMISTRY O RDERABLES [facility] INSURANCE BILL [address] [place] [address] * COPPER BLOOD (08/02/2024 1:37 PM CDT) Only the most recent of2 resultswithin the time period is included. Copper 83 80 - 158 ug/dL [facility] INSURANCE BILL Comment:Detection Limit = 5 Blood BLOOD SPECIMEN / Unknown 08/02/2024 1:37 PM CDT 08/02/2024 Narrative [facility] - 08/05/2024 7:12 AM CDT Test(s) [id number]-Vozdxo, Serum or Plasma was developed and its performance characteristics determined by [employer].. It has not been cleared or approved by the Food and Drug Administration. Performed at: ??01 - [facility] ??[id number] Gaming Manager: Edgard Bower MD, Phone: ??[phone] Vikki Salvador APRN-WEB CONTENT DEVELOPER LAB - CHEMISTRY O RDERABLES [facility] INS[facility] B[facility] [address] [place] [address] * (ABNORMAL) CBC W/O DIFFERENTIAL (08/02/2024 1:37 [...] 7:13 AM CDT Performed at: ??01 - [facility] [id number] [place], [place] ??[id number] Gaming Manager: Chavez Benavides PhD, Phone: ??[phone] Vikki Salvador [facility] - HEMATOLOGY ORDERABLES [facility] INSURANCE BILL [address] [place] [address] * (ABNORMAL) COMPREHENSIVE METABOLIC PANEL (08/02/2024 1:37 PM CDT) Only the most recent of2 resultswithin the time period is included. Pathologist [facility] Glucose 80 70 - 99 mg/dL [facility] [...] 9:14 AM CDT Performed at: ??01 - [facility] ??[id number] Gaming Manager: Chavez Benavides PhD, Phone: ??[phone] Vikki [place] LAB - CHEMISTRY O RDERABLES [facility] INSURANCE BILL [address] [place] [address] * PREALBUMIN (08/02/2024 1:37 PM CDT) Only the most recent of2 resultswithin the time period is included. Prealbumin 14 9 - 32 mg/dL [facility] INSURANCE BILL Blood BLOOD SPECIMEN / Unknown 08/02/2024 1:37 PM CDT 08/02/2024 Narrative [facility] INSURANCE BILL - 08/03/2024 1:10 PM CDT Performed at: ??01 - [address] ??[id number] Gaming Manager: Chavez Benavides PhD, Phone: ??[phone] Vikki [place] LAB - CHEMISTRY O RDERABLES Performing Organization Address City/[facility]/ZIP Co de Phone Number [facility] INSURANCE BILL [address] [place] [address] * MAGNESIUM BLOOD (08/02/2024 1:37 PM CDT) Only the most recent of2 resultswithin the time period is included. Magnesium 1.9 1.6 - 2.3 mg/dL [facility] INSURANCE BILL Blood BLOOD SPECIMEN / Unknown 08/02/2024 1:37 PM CDT 08/02/2024 Narrative [facility] INSURANCE BILL - 08/03/2024 10:13 AM CDT Performed at: ??01 - [employer] ??[id number] Gaming Manager: Chavez Benavides PhD, Phone: ??[phone] Vikki Salvador [facility] - CHEMISTRY O RDERABLES Performing Organization Address [facility] Co de Phone Number [facility] INSURANCE BILL [address] [place] [address] * (ABNORMAL) VITAMIN B12 (08/02/2024 1:37 PM CDT) Only the most recent of2 resultswithin the time period is included. Vitamin B12 1,447(H) 232 - 1,245 pg/mL [facility] INSURANCE BILL Blood BLOOD SPECIMEN / Unknown 08/02/2024 1:37 PM CDT 08/02/2024 Narrative [facility] INSURANCE BILL - 08/03/2024 11:13 AM CDT Performed at: ??01 - [facility] ??[id number] Gaming Manager: Chavez Benavides PhD, Phone: ??[phone] Vikki Salvador [facility] - CHEMISTRY O RDERABLES Performing Organization Address City/[facility] Co de Phone Number [facility] INSURANCE BILL [address] [place] [address] * FERRITIN (08/02/2024 1:37 PM CDT) Only the most recent of2 resultswithin the time period is included. Ferritin 16 15 - 150 ng/mL [facility] INSURANCE BILL Blood BLOOD SPECIMEN / Unknown 08/02/2024 1:37 PM CDT 08/02/2024 Narrative [facility] INSURANCE BILL - 08/03/2024 10:13 AM CDT Performed at: ??01 - [facility] [address] [place], [place] ??[id number] Gaming Manager: Chavez Benavides PhD, Phone: ??[phone] Vikki Salvador GLASS DESIGNER-WEB CONTENT DEVELOPER LAB - CHEMISTRY O RDERABLES [facility] INSURANCE BILL [address] [place] [address] * FL UGI SERIES WO KUB (02/02/2024 9:29 AM CDT) Anatomical Region Laterality Modality Abdomen Radiographic Yisel ging 02/02/2024 10:0 7 AM CDT Impressions 02/02/2024 10:10 AM CDT IMPRESSION: NO EVIDENCE OF ??LEAK OR OBSTRUCTION. > Interpreting Provider: Atul Membreno MD on 02/02/2024 10:10 AM Narrative 02/02/2024 10:10 AM CDT Fluoroscopic upper GI with KUB Indication: Morbid obesity, status post duodenal switch gastric bypass surgery, gastric leak. Findings: Multiple fluoroscopic images of the upper GI tract were obtained following ingestion of water-soluble oral contrast media. There is no evidence of leak. There is prompt emptying into the alimentary limb. Alimentary limb imaged into the pelvis and is normal in caliber and fold pattern FLUOROSCOPY DOSE: ??7.86 mGy Reference air kerma (ka,r). The total fluoroscopy time was 2.24 minutes. 4 fluoroscopic images were obtained. Cineradiography was also performed. Procedure Note Atul Membreno MD - 02/02/2024 Fluoroscopic upper GI with KUB Indication: Morbid obesity, status post duodenal switch gastric bypass surgery, gastric leak. Findings: Multiple fluoroscopic images of the upper GI tract were obtainedfollowing ingestion of water-soluble oral contrast media. There is no evidence of leak. There is prompt emptying into thealimentary limb. Alimentary limb imaged into the pelvis and is normal in caliberand fold pattern FLUOROSCOPY DOSE: 7.86 mGy Reference air kerma (ka,r). The total fluoroscopy time was 2.24 minutes. 4 fluoroscopic images were obtained. Cineradiography was also performed. IMPRESSION: NO EVIDENCE OF LEAK OR OBSTRUCTION. > Interpreting Provider: Atul Membreno MD on 02/02/2024 10:10 AM Aki Kauffman Devon DO FLUOROSCOPY ORDERAB LES * (ABNORMAL) CBC W AUTO DIFFERENTIAL (02/02/2024 4:03 AM CDT) Only the most recent of2 resultswithin the time period is included. WBC 11.2(H) 4.0 - 10.7 x10E9/L 02/02/2024 4:40 AM CDT [facility] RBC Count 3.66(L) 3.90 - 5.20 x10E12/L 02/02/2024 4:40 AM CDT [facility] Hemoglobin 10.1(L) 11.9 - 15.8 g/dL 02/02/2024 4:40 AM CDT [facility] Hematocrit 31.7(L) 34.8 - 46.1 % 02/02/2024 4:40 AM CDT [facility] MCV 86.6 80.0 - 98.0 fL 02/02/2024 4:40 AM CDT [facility] MCH 27.6 26.7 - 33.6 pg 02/02/2024 4:40 AM CDT [facility] MCHC 31.9 31.7 - 36.3 g/dL 02/02/2024 4:40 AM CDT [facility] RDW-CV 14.4 11.3 - 14.8 % 02/02/2024 4:40 AM CDT [facility] Platelet Count 319 150 - 420 x10E9/L 02/02/2024 4:40 AM CDT [facility] MPV 9.7 7.8 - 11.4 fL 02/02/2024 4:40 AM CDT [facility] Neutrophil % 81.7(H) 41.0 - 74.0 % 02/02/2024 4:40 AM CDT [facility] Lymphocyte % 11.5(L) 17.0 - 47.0 % 02/02/2024 4:40 AM CDT [facility] Monocyte % 6.3 3.0 - 11.0 % 02/02/2024 4:40 AM CDT [facility] Eosinophil % 0.0 0.0 - 7.0 % 02/02/2024 4:40 AM CDT [facility] Basophil % 0.1 0.0 - 1.6 % 02/02/2024 4:40 AM CDT [facility] Immature Granulocytes % 0.4 0.0 - 1.0 % 02/02/2024 4:40 AM CDT [facility] Neutrophil Absolute 9.13(H) 1.60 - 7.50 x10E9/L 02/02/2024 4:40 AM CDT [facility] Lymphocyte Absolute 1.28 1.00 - 4.40 x10E9/L 02/02/2024 4:40 AM CDT [facility] Monocyte Absolute 0.70 0.15 - 1.00 x10E9/L 02/02/2024 4:40 AM CDT [facility] Eosinophil Absolute 0.00 0.00 - 0.60 x10E9/L 02/02/2024 4:40 AM CDT [facility] Basophil Absolute 0.01 0.00 - 0.13 x10E9/L 02/02/2024 4:40 AM CDT [facility] Blood BLOOD SPECIMEN / Unknown Venipuncture / Unknown 02/02/2024 4:03 AM CDT 02/02/2024 4:33 AM CDT Aki Osorio DO LAB - HEMATOLOGY OR DERABLES [facility] [address] [place] [address] * (ABNORMAL) BASIC METABOLIC PANEL (CALCIUM TOTAL) (02/02/2024 4:03 AM CDT) [facility] Glucose 125(H) 70 - 105 mg/dL 02/02/2024 5:04 AM CDT [facility] Sodium 141 136 - 145 mmol/L 02/02/2024 5:04 AM CDT [facility] Potassium 3.3(L) 3.5 - 5.1 mmol/L 02/02/2024 5:04 AM CDT [facility] Chloride 104 98 - 107 mmol/L 02/02/2024 5:04 AM CDT [facility] CO2 23 22 - 29 mmol/L 02/02/2024 5:04 AM CDT [facility] Calcium 7.8(L) 8.4 - 10.4 mg/dL 02/02/2024 5:04 AM CDT [facility] Anion Gap 14 6 - 16 mmol/L 02/02/2024 5:04 AM CDT [facility] BUN 10 7 - 26 mg/dL 02/02/2024 5:04 AM CDT [facility] Creatinine 0.79 0.57 - 1.11 mg/dL 02/02/2024 5:04 AM T [facility] eGFR by CKD-EPI 80(L) >=90 mL/min/1.7 3 m2 02/02/2024 5:04 AM CDT [facility] Blood BLOOD SPECIMEN / Unknown Venipuncture / Unknown 02/02/2024 4:03 AM CDT 02/02/2024 4:33 AM CDT Aki Osorio DO LAB - CHEMISTRY ORD ERABLES Performing Organization Address City/State/[facility] Co de Phone Number [facility] [address] [place] [address] * ETT LINE PERFORMABLE (02/01/2024 10:25 AM CDT) Narrative Herlinda Oreilly APRN-CRNA - 02/01/2024 10:25 AM CDT Herlinda Oreilly APRN-CRNA ? 02/01/2024 10:26 AM Endotracheal Tube Placement: ? Intubation Event Date/Time: ??02/01/2024 10:03 AM Procedure: intubation ([id number]). Procedure Section: ?? Sedation: under general anesthesia. Indications for Airway Management: ??anesthesia Induction: standard IV Patient Position: ??supine Mask Ventilation: easy with oral airway. Blade Type: Eliazar Blade Size: 3 Laryngoscopy View: grade 1 (full cords) Tube: endotracheal tube Placement: oral Tube type: cuff - inflated Tube Size (MM): 7 Depth of Insertion (CM): 21 Measured From: teeth Cuff volume (mL): ??6 Cuff Inflated With: air Number of Attempts: 1. Placement Verified By: direct visualization, bilateral breath sounds and CO2 monitor Tube secured with: ??adhesive tape. Dentition unchanged? ??Yes Difficult Airway? ??No. Procedure Start Time: 02/01/2024 10:03 AM. Procedure End Time: 02/01/2024 10:03 AM. Procedure Total Time: 0 ??minutes. Staff Section ? Anesthesia Provider: Herlinda Oreilly APRN-NOREEN, Performed the procedure Shaji Vidal MD GENERAL ANESTHESIA O RDERABLES * GLUCOSE - POINT OF CARE (02/01/2024 7:59 AM CDT) Glucose WB/POC 92 70 - 106 mg/dL 02/01/2024 8:00 AM CDT [facility] Specimen Type Venous 02/01/2024 8:00 AM CDT [facility] Blood BLOOD SPECIMEN / Unknown 02/01/2024 7:59 AM CDT 02/01/2024 8:00 AM CDT Aki Osorio DO LAB - POINT OF CARE ORDERABLES Performing Organization Address [facility] Co de Phone Number [facility] [address] [place] [address] * BLOOD TYPE VERIFICATION (02/01/2024 7:42 AM CDT) ABO Rh O POS 02/01/2024 8:4 3 AM CDT [facility] Blood Bank BLOOD SPECIMEN / Unknown Venipuncture / Unknown 02/01/2024 7:42 AM CDT 02/01/2024 8:02 AM CDT Aki Osorio DO LAB - BLOOD BANK OR DERABLES Performing Organization Address City/[facility] Co de Phone Number [facility] [address] [place] [address] * TYPE + SCREEN PANEL (01/18/2024 10:13 AM CDT) ABO Rh O POS 01/18/2024 11:11 AM CDT [facility] Comment:No history; collect retype. Antibody Screen NEG 11:11 AM CDT [facility] Blood Bank BLOOD SPECIMEN / Unknown Venipuncture / Unknown 01/18/2024 10:13 AM CDT 01/18/2024 10:32 AM CDT Mariluz Son DO LAB - BLOOD BANK ORD ERABLES [facility] [address] [place] [address] * PHOSPHORUS BLOOD (01/18/2024 10:13 AM CDT) Pathologist [facility] Phosphorus 2.3 2.3 - 4.7 mg/dL 01/18/2024 11:01 AM CDT [facility] Blood BLOOD SPECIMEN / Unknown Venipuncture / Unknown 01/18/2024 10:13 AM CDT 01/18/2024 10:32 AM CDT Aki Osorio DO LAB - CHEMISTRY ORD ERABLES [facility] [address] [place] [address] * (ABNORMAL) IRON + TRANSFERRIN PANEL (01/18/2024 10:13 AM CDT) Iron 54 40 - 150 ug/dL 01/18/2024 11:01 AM CDT [facility] Transferrin 316 174 - 382 mg/dL 01/18/2024 11:01 AM CDT [facility] TIBC Calculated 395 240 - 450 ug/dL 01/18/2024 11:01 AM CDT [facility] Iron Saturation % 14(L) 20 - 50 % 01/18/2024 11:01 AM CDT [facility] Blood BLOOD SPECIMEN / Unknown Venipuncture / Unknown 01/18/2024 10:13 AM CDT 01/18/2024 10:32 AM CDT Aki Osorio DO LAB - CHEMISTRY ORD ERABLES [facility] [address] [place] [address] * EKG 12-LEAD (01/18/2024 9:50 AM CDT) Ventricular Rate 80 BPM [facility] Atrial Rate 80 BPM [facility] P-R Interval 152 ms [facility] QRS Duration ms 78 ms [facility] Q-T Interval ms 372 ms [facility] QTC Calculation (Bezet) 429 ms [facility] Calculated P [place] 64 degrees [facility] Calculated R [place] 35 degrees [facility] Calculated T [place] 36 degrees [facility] Interpretation EKG Normal sinus rhythm Normal ECG No previous ECGs available Confirmed by BRENDA RUSS MD ([id number]) on 01/18/2024 6:40:46 PM [facility] 01/18/2024 9:50 AM CDT 01/18/2024 6:40 PM CDT Mariluz Son DO ECG ORDERABLES [facility] * CARDIAC RHYTHM STRIP ORDER (08/17/2023 7:57 PM ASSISTANT MANAGER RETAIL) Narrative 08/17/2023 7:57 PM ASSISTANT MANAGER RETAIL Ordered by an unspecified provider. Scanned Document CARDIAC SERVICES ORD ERABLES * HELICOBACTER PYLORI UREASE (STL) (08/16/2023 9:51 AM ASSISTANT MANAGER RETAIL) Helicobacter pylori Urease Initial Negative Negative 08/17/2023 10:07 AM ASSISTANT MANAGER RETAIL [facility] Helicobacter pylori Urease Final Negative Negative 08/17/2023 10:07 AM ASSISTANT MANAGER RETAIL [facility] Microbiology GASTRIC BIOPSY SPECIMEN / Unknown 08/16/2023 9:51 AM ASSISTANT MANAGER RETAIL 08/16/2023 2:13 PM ASSISTANT MANAGER RETAIL Aki Osorio DO LAB - MICROBIOLOGY ORDERABLES [id number] [id number] * EGD (08/16/2023 9:32 AM ASSISTANT MANAGER RETAIL) Report Endoscopy POC _ Patient Name: Cicio , ??Vangie ?Procedure Date: 08/16/2023 9:32 AM ? Date of : 1955 ?Admit Type: Outpatient Age: 68 ? Room: ROOM 3 Gender: Female ?Attending MD: Aki Osorio DO, [id number] _ Procedure: ? Upper GI endoscopy Indications: ? Preoperative assessment for bariatric surgery to treat ? morbid obesity Providers: ? Aki Osorio DO, Gris Santos RN, Kellie ? CHRISTY Damon, Olga Lidia Bell CRNA (Anesthesia ? Staff) Medicines: ? Monitored Anesthesia Care Complications: ? No immediate complications. _ Estimated Blood Loss: ? Estimated blood loss was minimal. Procedure: ? Pre-Anesthesia Assessment: ? - Prior to the procedure, a History and Physical was ? performed, and patient medications and allergies were ? reviewed. The patient's tolerance of previous ? anesthesia was also reviewed. The risks and benefits ? of the procedure and the sedation options and risks ? were discussed with the patient. All questions were ? answered, and informed consent was obtained. Prior ? Anticoagulants: The patient has taken no anticoagulant ? or antiplatelet agents. ASA Grade Assessment: III - A ? patient with severe systemic disease. After reviewing ? the risks and benefits, the patient was deemed in ? satisfactory condition to undergo the procedure. ? After obtaining informed consent, the endoscope was ? passed under direct vision. Throughout the procedure, ? the patient's blood pressure, pulse, and oxygen ? saturations were monitored continuously. The Endoscope ? was introduced through the mouth, and advanced to the ? second part of duodenum. The upper GI endoscopy was ? accomplished without difficulty. The patient tolerated ? the procedure well. ? Findings: ? The examined esophagus was normal. ? The previously performed sleeve gastrectomy was mildly dilated without ? obvious evidence of hiatal hernia. Questionable small sliding hiatal ? hernia. ? Scattered mild inflammation characterized by erythema was found in the ? prepyloric region of the stomach. Biopsies were taken with a cold ? forceps for Helicobacter pylori testing using CLOtest. Estimated blood ? loss was minimal. ? A medium-sized hiatal hernia was present. ? The examined duodenum was normal. _ ? Impression: ?- Normal esophagus. ? - Gastritis. Biopsied. ? - Medium-sized hiatal hernia. ? - Normal examined duodenum. Recommendation: ?- Discharge patient to home (ambulatory). ? - Resume previous diet today. ? - Continue present medications. ? - Return to my office as previously scheduled. ? Procedure Code(s): ? --- Professional --- ? 43009 ? --- Technical --- ? 85123 Diagnosis Code(s): ? --- Professional --- ? K29.70 ? K44.9 ? Z01.818 ? E66.01 ? --- Technical --- ? K29.70 ? K44.9 ? Z01.818 ? E66.01 CPT copyright 2020 [employer]. All rights reserved. The codes documented in this report are preliminary and upon well flow operator review may be revised to meet current compliance requirements. ____ Aki Osorio DO 08/16/2023 9:56:07 AM This report has been signed electronically. Number of Addenda: 0 Note Initiated On: 08/16/2023 9:32 AM [facility] 08/16/2023 9:32 AM ASSISTANT MANAGER RETAIL Narrative Procedure Note Aki Osorio, - 08/16/2023 9:56 AM CST EGD completed. Biopsies pending. A full PDF copy of the report with photos is in the results and/or mediatab for your review. Please refer to this for full details of theprocedure. Follow up with me as scheduled. Aki Osorio DO 08/16/2023 9:57 AM Aki Osorio DO GI PROCEDURE ORDERA BLES [facility] Care Teams Certified Detention Deputy Relationship Specialty Start Date End Date Kain Shields DO [address] [facility] [address] [place] [id number] PCP - General Internal Medicine 07/22/23
--- OUTSIDE RECORDS SUMMARY | 2024-11-01 13:34 | XMS_ITS | Clinical Summary ---
Author Organization [facility] Address [address] [place] [address] Care Team Providers Care Reefer Truck Driver Name Role Phone BetsyKain dennis Primary Care Provider [phone] Allergies Active Allergy Reactions Criticality Noted Date Comments Hydrocodone Itching 10/07/2018 Medications gabapentin (NEURONTIN) 300 mg capsule Take 300 mg by mouth 3 times daily. Active venlafaxine (EFFEXOR) 75 mg tablet Take 75 mg by mouth every 12 hours . Active simvastatin (ZOCOR) 40 mg tablet Take 40 mg by mouth Daily LATE. Active lisinopril (PRINIVIL) 5 mg tablet Take 5 mg by mouth daily. Active cyclobenzaprine (FLEXERIL) 10 mg tablet Take 10 mg by mouth 3 times daily as needed for Spasm. Active temazepam (RESTORIL) 15 mg capsule Take 30 mg by mouth nightly as needed for Insomnia. Active pantoprazole (PROTONIX) 40 mg Tablet, Delayed Release (E.C.) Take 40 mg by mouth daily. Active aspirin (ECOTRIN EC) 81 mg Tablet, Delayed Release (E.C.) Take 81 mg by mouth daily. Active oxyCODONE-aceta minophen (PERCOCET) 5-325 mg tablet Take 2 Tablets by mouth every 4 hours as needed for Pain. Max Daily Amount: 12 Tablets 30 Tablet 10/10/2018 Active ibuprofen (MOTRIN) 600 mg tablet Take 1 Tablet (600 mg) by mouth every 6 hours as needed for Pain, Mild. 30 Tablet 10/10/2018 Active Active Problems Problem Noted Date Diagnosed Date Benign hypertension 02/27/2015 Hypercholesterolemia 02/27/2015 Depression, major, recurrent, in complete remiss ion 02/27/2015 Immunizations Immunization Administration Dates Next Due Influenza Seasonal Unspecified Formulation IM Pneumococcal conjugate, unspecified formulation 12/03/2015 Zoster Vaccine Live SQ 12/03/2015 Family History Medical History Relation Name Comments Heart Disease Brother Heart Disease Father Cancer Mother Healthy Mother Heart Disease Mother Heart Disease Sister Relation Name Status Comments Brother Alive Father Mother Sister Social History Tobacco Use Types Packs/Day Years Used Date Smoking Tobacco: Former Cigarettes Q uit: 02/18/1981 Alcohol Use Standard Drinks/Week Comments No 0 (1 standard drink = 0.6 oz pur e alcohol) Comments No Sex and Gender Information Value Date Recorded Sex Assigned at Not on file Legal Sex Female 4:26 AM TELEMETRY MONITOR Gender Identity Not on file Sexual Orientation Not on file Last Filed Vital Signs Vital Sign Reading Time Taken Comments Blood Pressure 156/73 10/10/2018 6:44 PM TELEMETRY MONITOR Pulse 99 10/10/2018 6:44 PM TELEMETRY MONITOR Temperature 36.7 ??C (98 ??F) 10/10/2018 6:44 PM TELEMETRY MONITOR Respiratory Rate 20 10/10/2018 6:44 PM TELEMETRY MONITOR Oxygen Saturation 95% 10/10/2018 6:44 PM TELEMETRY MONITOR Inhaled Oxygen Concentration - - Weight 72.8 kg (160 lb 9.6 oz) 10/10/2018 1:07 P M TELEMETRY MONITOR Height 154.9 cm (5' 1 ) 10/10/2018 1:07 PM TELEMETRY MONITOR Body Mass Index 30.35 10/10/2018 1:07 PM TELEMETRY MONITOR Plan of Treatment Health Maintenance Due Date Last Done Comments DTAP/TDAP/TD VACCINES (1 - Tdap) 01/12/1972 BREAST CANCER SCREENING 1993 COLORECTAL SCREENING 1998 Colorectal Cancer Screening 1998 FIT-DNA Q 3 years 1998 FIT/FOBT Q 1 year 1998 Flex Sig/CT Colonography Q 5 years 1998 PNEUMOCOCCAL VACCINE 65+ YEARS (1 of 1 - PCV) 01/12/20 03 12/03/2015 ZOSTER VACCINE (2 of 3) 01/28/2016 12/03/2015 OSTEOPOROSIS SCREENING 2018 INFLUENZA VACCINE (#1) 2024 12/03/2015 RSV VACCINE (60+ or ) (1 - 1-dose 75+ series) 01/12/2028 Medical Devices Implanted Type Area Tile Professional Device Identifier Shelf Expiration Date Model / Serial / Lot Spine Hardware Spine Seamguard Bio 60 [id number] - [id number] Implanted:Qty: 4 on 02/27/2015 by Yoni Segovia MD at [facility] N/A: Abdomen [employer] 10/03/2017 [id number] / / [id number] Insurance [employer] CHOICE [facility] Advance Directives For more information, please contact: [phone] * Full Code (Latest Code Status on File) Date Activated Date Inactivated Comments 10/10/2018 1:19 PM 10/10/2018 9:12 PM * Full Code Date Activated Date Inactivated Comments 03/06/2016 8:09 AM 03/06/2016 12:40 PM * Full Code Date Activated Date Inactivated Comments 03/06/2016 7:17 AM 03/06/2016 8:09 AM * Full Code Date Activated Date Inactivated Comments 02/27/2015 8:31 AM 02/28/2015 3:53 PM * Full Code Date Activated Date Inactivated Comments 02/27/2015 5:38 AM 02/27/2015 8:31 AM Care Teams Reefer Truck Driver Relationship Specialty Start Date End Date Kain Shields DO [address] [facility] [address] [place] [address] PCP - General Internal Medicine 01/24/15
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
--- OUTSIDE RECORDS SUMMARY | 2024-11-01 13:34 | XMS_ITS ---
Author Organization [facility] [employer] [facility] Address [address] [facility] [address] [address] Care Team Providers Care Organ Pipe Voicer Name Role Phone Ryder Wray DO Primary Care Provider Roshan Hoskins Unavailable [phone] REASON FOR VISIT Medication Medications Medication SIG (Take, Route, Fr equency, Duration) Notes Start Date End Date Status Estazolam 2 MG 1 tablet at bedtime Orally Once a day for 30 days As needed Active Social History Sex Assigned At : Social History Observation Description Sex Assigned At Female Encounters Encounter Location Date Provider Diagnosis [facility] [employer] [facility] [address] [address] [address] 09/18/2024 Roshan Shelby Insomnia due to other mental disorder F51.05 Assessments Encounter Date Diagnosis (ICD Code) Assessment Notes Treatment Notes Treatment Clinical Notes Section Notes 09/18/2024 Insomnia due to other mental disorder (ICD-10 - F51.05) Plan Of Treatment Medication Medication Name Sig Start Date Stop Date Notes Estazolam 2 MG 1 tablet at bedtime Orally Once a day for 30 days Next Appt Details Provider Name:Kiki nichols, 01/17/2025 02:45:00 PM, [address], [facility] [address], [place], [address], Progress Notes * SNOW SHERMAN ADOB:[birth year] (69 yo F)Acc No.[id number]:09/18/2024 Patient:?SNOW SHERMAN :1955???Age:69 Y???Sex:Female Address:[facility] [address] [place], [address] * Refills? Refill Estazolam Tablet, 2 MG, Orally, 30, 1 tablet at bedtime, Once a day, 30 days, Refills=0 Subjective: * Chief Complaints: * ???Medication * Medical History:? * Surgical History:? * Hospitalization/Major Diagno stic Procedure:? * Medications:? Objective: * Vitals:? * Physical Examination:? Assessment: * Assessment: 1.?Insomnia due to other men drea disorder - F51.05??? Plan: * Treatment: * Procedure Codes:? * true * Date:? Generated for Chas young/Minal/[place] on:?11/01/2024 01:33 PM STARCHMAKER
--- OUTSIDE RECORDS SUMMARY | 2024-11-01 13:34 | XMS_ITS | CONTINUITY OF CARE DOCUMENT ---
Author Name myra renteria Address Unknown Organization [facility] Address [address] [place] [address] [address] [place] [address] Phone [phone] Care Team Providers Care Pole Framer Machine Name Role Phone myra renteria Unavailable Unavailable
--- OUTSIDE RECORDS SUMMARY | 2024-11-01 13:35 | XMS_ITS | Referral Summary ---
Author Organization [facility] [address] [facility] [address] Address [address] [facility] [address] [place] [address] Care Team Providers Care Supervising Law Enforcement Analyst Name Role Phone Kain Shields MD Primary Care Provider [phone]- [phone] Allergies Active Allergy Reactions Criticality Noted Date Comments Codeine Itching,Rash Medium Hydrocodone-Acetaminophen Rash Medium Medications aspirin (ENTERIC COATED ASPIRIN) 81 mg tablet take 1 tablet by oral route every day 0 0 6 Active lisinopril (PRINIVIL,ZESTR IL) 5 mg tablet take 1 tablet by oral route every day 0 0 6 Active simvastatin (ZOCOR) 40 mg tablet take 1 tablet by oral route every day in the evening [address] (PROTONIX) 40 mg EC tablet Take 1 tablet (40 mg total) by mouth daily Active hydrOXYzine (ATARAX) 10 mg tabletIndicatio ns:anxiety Take 1 tablet (10 mg total) by mouth every 8 (eight) hours as needed for anxiety 40 tablet 2 1 Active lamoTRIgine (LaMICtal) 100 mg tablet TAKE 1 TABLET TWICE DAILY 180 tablet 2 2 Active busPIRone (BUSPAR) 10 mg tablet 3 Active albuterol 2.5 mg /3 mL (0.083 %) nebulizer solution 3 Active albuterol HFA (PROVENTIL HFA,VENTOLIN HFA,PROAIR HFA) 90 mcg/actuation inhaler 3 Active ARIPiprazole (ABILIFY) 2 mg tablet Take 1 tablet (2 mg total) by mouth nightly [address] (NexIUM) 40 mg capsule Take 1 capsule (40 mg total) by mouth daily before breakfast 3 Active eszopiclone (LUNESTA) 3 mg tablet 3 Active Belsomra 20 mg tablet Take 1 tablet (20 mg total) by mouth nightly 3 Active Trintellix 20 mg tablet Take 1 tablet (20 mg total) by mouth daily 3 Active Active Problems Problem Noted Date Diagnosed Date PTSD (post-traumatic stress disorder) 01/08/2021 Assessment & Plan (12/20/2021 11:30 AM CDT): Chronic, persistent, therapy warranted. Seroquel prescribed for sleep which may help or indirectly with some of the symptoms. Continued management with Dr. Langford. Unspecified mood (affective) disorder 01/08/2021 Sensorineural hearing loss, asymmetrical 021 Encounter for screening colonoscopy 12/11/2019 Overview (12/11/2019): Added automatically from request for surgery [id number] Migraine headache 06/09/2017 ELIZABETH (obstructive sleep apnea) 06/09/2017 Intractable chronic migraine without aura and with status migrainosus 11/05/2016 Tobacco dependence in remission 06/17/2016 Overview (01/08/2017): Tobacco abuse, in remission Migraine 06/17/2016 Overview (01/09/2017): Migraine without status migrainosus, not intractable, unspecified migraine type Stenosis of subclavian artery (CMS/HCC) 06/17/20 16 Overview (01/09/2017): Stenosis of right subclavian artery Hypertension 05/27/2016 Mixed hyperlipidemia 05/27/2016 Hay fever 05/27/2016 Insomnia 05/27/2016 Assessment & Plan (12/20/2021 11:30 AM CDT): Acute on chronic, persistent, discuss treatment strategies with the patient. Agreed upon Seroquel as a treatment off-label for the use of sleep and also to facilitate improvement in mood. Monitor at interval with Dr. Langford as discussed. Hemangioma of intracranial structure 05/27/2016 Chronic daily headache 05/27/2016 Depression, major, recurrent, in complete remiss ion 02/27/2015 Spinal stenosis 05/26/2012 Degeneration of intervertebral disc of lumbar re gion 05/26/2012 Hearing loss 12/04/2011 Resolved Problems Problem Noted Date Diagnosed Date Resolved Date Dyslipidemia 06/17/2016 12/01/2021 Overview (01/09/2017): Dyslipidemia Benign hypertension 06/17/2016 01/19/20 24 Overview (01/09/2017): HTN (hypertension), benign Social History Tobacco Use Types Packs/Day Years Used Date Smoking Tobacco: Former Smokeless Tobacco: Never Tobacco Cessation:Counseling Given: Not Answered Alcohol Use Standard Drinks/Week Comments No 0 (1 standard drink = 0.6 oz pur e alcohol) Personal Safety Answer Date Recorded Getting School Help Needed Not on file 10/07 Comments No Sex and Gender Information Value Date Recorded Sex Assigned at Not on file Legal Sex Female 1:57 AM RELIEF SALESPERSON Gender Identity Not on file Sexual Orientation Not on file Last Filed Vital Signs Vital Sign Reading Time Taken Comments Blood Pressure 126/70 01/19/2024 1:33 PM CDT Pulse 86 01/19/2024 1:33 PM CDT Temperature 37.2 ??C (99 ??F) 10/06/2022 11: 43 AM RELIEF SALESPERSON Respiratory Rate 22 10/06/2022 11:4 3 AM RELIEF SALESPERSON Oxygen Saturation 94% 01/19/2024 1:33 PM CDT Inhaled Oxygen Concentration - - Weight 92.9 kg (204 lb 12.8 oz) 01/19/2024 1:33 PM CDT Height 154.9 cm (5' 1 ) 01/19/2024 1:33 PM CDT Body Mass Index 38.7 01/19/2024 1:33 PM CDT Plan of Treatment Not on file Procedures Procedure Name Priority Date/Time Associated Diagnosis Comments COLONOSCOPY 03/27/2020 7:52 AM CDT from Last 3 Months or Most Recently Relevant to Health Maintenance Results * COLONOSCOPY (03/27/2020 7:52 AM CDT) Anatomical Region Laterality Modality Other Narrative Procedure Note Henry Kaplan MD - 03/27/2020 7:52 AM CDT [facility] Endoscopy Lab Patient Name: Vangie Cha Procedure Date: 03/27/2020 7:52 AM Date of : 1955 Admit Type: Outpatient Age: 65 Gender: Female Note Status: Finalized Attending MD: Henry Kaplan M.D. Procedure Date: 03/27/2020 Procedure: Colonoscopy Indications: Screening for colorectal malignant neoplasm, This is the patient's first colonoscopy Providers: Henry Kaplan M.D., Kimberly Rodriguez CRNA (Anesthesia Staff), Gladys Aldana RN Referring MD: Kain Shields MD Medicines: Monitored Anesthesia Care Complications: No immediate complications. Estimated Blood Loss: Estimated blood loss: none. Procedure: Pre-Anesthesia Assessment: - Airway Examination: normal oropharyngeal airwayand neck mobility. - Respiratory Examination: clear to auscultation. - ASA Grade Assessment: III - A patient with severe systemic disease. - After reviewing the risks and benefits, thepatient was deemed in satisfactory condition to undergo the procedure. - The risks and benefits of the procedure and the sedation options and risks were discussed with the patient. All questions were answered and informed consent was obtained. After I obtained informed consent, the scope waspassed under direct vision. Throughout the procedure, the patient's blood pressure, pulse, and oxygensaturations were monitored continuously. The scope was passedunder direct vision. The Colonoscope was introducedthrough the anus and advanced to the the cecum, identifiedby the appendiceal orifice, ileocecal valve andpalpation. The colonoscopy was performed with ease. The patient tolerated the procedure well. The quality of thebowel preparation was good. The quality of the bowel preparation was evaluated using the BBPS (BostonBowel Preparation Scale) with scores of: Right Colon = 3 (entire mucosa seen well with no residual staining, small fragments of stool or opaque liquid),Transverse Colon = 3 (entire mucosa seen well with no residual staining, small fragments of stool or opaque liquid) and Left Colon = 3 (entire mucosa seen well with no residual staining, small fragments of stool oropaque liquid). The total BBPS score equals 9. The qualityof the bowel preparation was good. The quality of the bowel preparation was evaluated using the BBPS([place] Bowel Preparation Scale) with scores of: Right Colon= 3 (entire mucosa seen well with no residualstaining, small fragments of stool or opaque liquid),Transverse Colon = 3 (entire mucosa seen well with no residual staining, small fragments of stool or opaque liquid) and Left Colon = 3 (entire mucosa seen well with no residual staining, small fragments of stool oropaque liquid). The total BBPS score equals 9. The bowel preparation used was SUPREP. Bowel prep was administered using a split dose. Findings: The perianal and digital rectal examinations were normal. The colon (entire examined portion) appeared normal. The retroflexed view of the distal rectum and anal verge was normaland showed no anal or rectal abnormalities. Impression: - The entire examined colon is normal. - The distal rectum and anal verge are normal on retroflexion view. - No specimens collected. Recommendation: - Discharge patient to home (ambulatory). - Repeat colonoscopy in 10 years for screeningpurposes. - High fiber diet. Procedure Code(s): --- Professional --- G0121, Colorectal cancer screening; colonoscopy on individual not meeting criteria for high risk Diagnosis Code(s): --- Professional --- Z12.11, Encounter for screening for malignantneoplasm of colon CPT copyright 2017 [employer]. All rights reserved. The codes documented in this report are preliminary and upon lottery manager reviewmay be revised to meet current compliance requirements. Electronically signed by Henry Kaplan MD Henry Kaplan M.D. 03/27/2020 8:28:03 AM Number of Addenda: 0 Note Initiated On: 03/27/2020 7:52 AM Henry Kaplan MD ENDOSCOPY PROCEDURES Final Resul t from Last 3 Months or Most Recently Relevant to Health Maintenance Insurance [employer] CHOICE MEDICARE PPO [employer] CHOICE MEDICARE PPO [employer] CHO[employer] MEDICARE PPO [employer] MEDICARE PPO Care Teams Supervising Law Enforcement Analyst Relationship Specialty Start Date End Date Kain Shields MD [address] [facility] [address] [facility] [address] [place] [address] PCP - General 06/17/16
--- OUTSIDE RECORDS SUMMARY | 2024-11-01 13:35 | XMS_ITS ---
Author Organization [facility] [employer] [facility] Address [address] [facility] [address] [facility] [address] [place] [address] Care Team Providers Care Senior It Specialist Name Role Phone Ryder Wray DO Primary Care Provider Roshan Hoskins Unavailable [phone] REASON FOR VISIT Medication Medications Medication SIG (Take, Route, Fr equency, Duration) Notes Start Date End Date Status Estazolam 2 MG 1 tablet at bedtime Orally Once a day for 30 days As needed 10/12/2024 Active Social History Sex Assigned At : Social History Observation Description Sex Assigned At Female Encounters Encounter Location Date Provider Diagnosis [facility] [place] [id number] COUNTS INCLUDE [address]EDS [address] [facility] [address] [facility] [address] [place] [address] 10/10/2024 Roshan Shelby Insomnia due to other mental disorder F51.05 Assessments Encounter Date Diagnosis (ICD Code) Assessment Notes Treatment Notes Treatment Clinical Notes Section Notes 10/10/2024 Insomnia due to other mental disorder (ICD-10 - F51.05) Plan Of Treatment Medication Medication Name Sig Start Date Stop Date Notes Estazolam 2 MG 1 tablet at bedtime Orally Once a day for 30 days 10/12/2024 Next Appt Details Provider Name:Kiki nichols, 01/17/2025 02:45:00 PM, [address], [facility] [address], [address], Progress Notes * SNOW SHERMAN ADOB:[birth year] (69 yo F)Acc No.[id number]:10/10/2024 Patient:?SNOW SHERMAN :1955???Age:69 Y???Sex:Female Address:[facility] [address], [place], [address] * Refills? Refill Estazolam Tablet, 2 MG, [...] * Date:? Generated for Chas young/Minal/[place] on:?11/01/2024 01:34 PM PACKAGE DELIVERY ROOM SERVICE RUNNER
--- OUTSIDE RECORDS SUMMARY | 2024-11-01 13:35 | XMS_ITS | Clinical Summary ---
Author Organization [facility] [address] [facility] [address] [facility] [address] [place] [address] Care Team Providers Care Buffing Machine Operator Name Role Phone Kain Shields MD Primary Care Provider [phone]- [phone] Allergies Active Allergy Reactions Criticality Noted Date [...] (12/11/2019): Added automatically from request for surgery [id number] Migraine headache 06/09/2017 ELIZABETH (obstructive sleep apnea) [...] 01/19/20 24 Overview (01/09/2017): HTN (hypertension), benign Surgical History Surgery Date Site/Laterality Comments LUMBAR SPINE SURGERY COLONOSCOPY 03/27/2020 1st screening SECTION Medical History Medical History Date Comments Hypertension Dyslipidemia Migraine Depression Hypercholesteremia Family History Medical History Relation Name Comments Heart attack Father Myocardial infa rction; Heart attack Sister Myocardial infa rction; Relation Name Status Comments Father Sister Social History Tobacco Use Types Packs/Day [...] on file Legal Sex Female 1:57 AM BUSINESS OFFICE DIRECTOR Gender Identity Not on file Sexual Orientation Not on file Obstetrics History Last Filed Vital Signs Vital Sign Reading Time Taken Comments Blood Pressure 126/70 01/19/2024 1:33 PM CDT Pulse 86 01/19/2024 1:33 PM CDT Temperature 37.2 ??C (99 ??F) 10/06/2022 11: 43 AM BUSINESS OFFICE DIRECTOR Respiratory Rate 22 10/06/2022 11:4 3 AM BUSINESS OFFICE DIRECTOR Oxygen Saturation 94% 01/19/2024 1:33 PM CDT Inhaled Oxygen Concentration - - Weight 92.9 kg (204 lb 12.8 oz) 01/19/2024 1:33 PM CDT Height 154.9 cm (5' 1 ) 01/19/2024 1:33 PM CDT Body Mass Index 38.7 01/19/2024 1:33 PM CDT Plan of Treatment Health Maintenance Due Date Last Done Comments Breast Cancer Screening-Mammogram 1955 Depression Screening 1955 Hepatitis C Screening 1955 Osteoporosis Screening-Bone Density Scan 1955 DTaP/Tdap/Td Vaccine (1 - Tdap) 01/12/1964 Hepatitis B Screening 1971 Zoster Vaccine (2 of 3) 01/28/2016 12/03/2015 Pneumococcal vaccine 65+ (2 of 2 - PPSV23 or PCV20) 12/03/2015 Well Visit 65+ 2018 Fall Risk Assessment 03/27/2021 03/27/2020 Influenza Vaccine (#1) 2024 12/03/2015 Colon Cancer Screening-Colonoscopy 03/27/20302019 Colon Cancer Screening-CT Colonography Discontinued Colon Cancer Screening-DNA Stool Discontinued 03/27/20 20 Colon Cancer Screening-FIT Discontinued 03/27/2020 Colon Cancer Screening-Sigmoidoscopy Discontinued 03/05 Procedures Procedure Name Priority Date/Time Associated Diagnosis Comments COLONOSCOPY 03/27/2020 7:52 AM CDT from Last 3 Months or Most Recently Relevant to Health Maintenance Results * COLONOSCOPY (03/27/2020 7:52 AM CDT) Anatomical Region Laterality Modality Other Narrative Procedure Note Henry Kaplan MD - 03/27/2020 7:52 AM CDT [facility] Endoscopy Lab Patient Name: Vangie Cha Procedure [...] the bowel preparation was evaluated using the BBPS([place] Bowel Preparation Scale) with scores of: Right [...] for malignantneoplasm of colon CPT copyright 2017 [employer]. All rights reserved. The codes documented in this report are preliminary and upon sap business intelligence consultant reviewmay be revised to meet current compliance requirements. Electronically signed by Henry Kaplan MD Henry Kaplan M.D. 03/27/2020 8:28:03 AM Number of Addenda: 0 Note Initiated On: 03/27/2020 7:52 AM Henry Kaplan MD ENDOSCOPY PROCEDURES Final Resul t from Last 3 Months or Most Recently Relevant to Health Maintenance Insurance [employer] MEDICARE PPO [employer] MEDICARE PPO HU[employer] CHOICE MEDICARE PPO [employer] CHOICE MEDICARE PPO Care Teams Buffing Machine Operator Relationship Specialty Start Date End Date Kain Shields MD [address] [facility] [address] [place] [address] PCP - General 06/17/16
[2024-11-01 13:36] LABS: Iron 35 ug/dL (37-170)
[2024-11-01 13:46] LABS: Percent Iron Saturation 9 % (20-50)
[2024-11-01 14:52] LABS: Alanine Aminotransferase 52 U/L (6-35); Albumin Level 3.8 g/dL (3.5-5.1); Alkaline Phosphatase 158 U/L (38-126); Aspartate Amino Transferase 55 U/L (14-36); Bilirubin,Total 0.4 mg/dL (0.2-1.3)
[2024-11-01 15:24] LABS: Hepatitis B Surface Antigen Negative (Negative)
[2024-11-01 15:41] LABS: Hepatitis C Virus Antibody Negative (Negative)
[2024-11-02 07:02] LABS: GGT 10 U/L (3-65)
[2024-11-06 15:33] LABS: Immunoglobulin A 140 mg/dL (70-320); TTG IGA AB <1.0 U/mL
== END 2024-11-01 12:42 | disposition home or self-care (01) ==
PROVIDERS: PCP Internal Medicine; Visit Provider Internal Medicine
DX: D72.829 Elevated white blood cell count, unspecified (principal); R74.8 Abnormal levels of other serum enzymes; E66.1 Drug-induced obesity; D64.9 Anemia, unspecified
CPT/HCPCS: 36415; 80076; 82784; 82977; 83540; 83550; 84443; 85025; 85610; 86364; 86803; 87340

== ENCOUNTER 2025-02-09 10:15 | Outpatient (CLI) | payer MEDICARE, SELFPAY ==
--- NOTE | ~2025-02-09 | CT_ITS ---
EXAMINATION: CTA UE RT DATE: 02/09/2025 12:00 INDICATION: Subclavian artery stenosis TECHNIQUE: Computed tomographic angiography (CTA) of the upper chest and right upper arm was performe d 100 mL Omnipaque-350 intravenous contrast. Volume-rendered 3D-reconstructions of the aortic arch an d arteries of the right upper arm were constructed by the technologist on a separate workstation. Aut omated exposure control and iterative reconstruction technique were employed. The dose-length product was 767.24 mGy-cm. COMPARISON: None. FINDINGS: Mild emphysema. Normal anatomic variant azygos lobe and fissure. There are few scattered calcified pu lmonary nodules along with calcified right hilar and mediastinal lymph nodes consistent with old gran ulomatous disease. There are groundglass opacities in the dependent aspect of both lungs and favor at electasis and/or mild pulmonary edema over pneumonia. Heart size is normal. Atherosclerotic coronary artery calcification. No pericardial or pleural effusion. No pathologically enlarged cervical or thor acic lymphadenopathy. Moderate cervical and moderate to severe thoracic spondylosis. Visualized thoracic aorta is normal in caliber with small amount scattered atherosclerotic plaque but hemodynamically significant stenosis or dissection. Normal anatomic variant retroesophageal aberrant right subclavian artery. There is a severe, 75% stenosis at the origin of the left subclavian artery . The more distal subclavian artery as well as the left axillary artery are normal with other evident atherosclerotic plaque. Small amount of nonhemodynamically significant atherosclerotic plaque in the visualized more distal right brachial artery. Additional atherosclerotic plaque with 30% stenosis of the right carotid bulb relative to normal distal artery lumen diameter (NASCET criteria). There is a therosclerotic plaque with 0% stenosis of the left carotid bulb relative to normal distal artery lume n diameter. IMPRESSION: 1. Severe 75% stenosis at the origin of the aberrant retroesophageal right subclavian artery. 2. Mild emphysema with dependent groundglass opacities in both lungs which could represent atelectasi s and/or mild pulmonary edema versus less likely pneumonia. Reviewed, dictated and finalized at location A. IMPRESSION: 1. Severe 75% stenosis at the origin of the aberrant retroesophageal right subc lavian artery. 2. Mild emphysema with dependent groundglass opacities in both lungs which coul d represent atelectasis and/or mild pulmonary edema versus less likely pneumoni a.
--- OUTSIDE RECORDS SUMMARY | 2025-02-09 10:22 | XMS_ITS | Clinical Summary ---
Author Organization [facility] Pietro Escalona Address [address] [place] [address] Care Team Providers Care Hot Plate Plywood Press Feeder Name Role Phone BetsyKain dennis Primary Care Provider [phone] Allergies Active Allergy Reactions Criticality Noted Date [...] on file Legal Sex Female 4:26 AM PATIENT ADVOCATE Gender Identity Not on file Sexual Orientation Not on file Last Filed Vital Signs Vital Sign Reading Time Taken Comments Blood Pressure 156/73 10/10/2018 6:44 PM PATIENT ADVOCATE Pulse 99 10/10/2018 6:44 PM PATIENT ADVOCATE Temperature 36.7 C (98 F) 10/10/2018 6:44 PM PATIENT ADVOCATE Respiratory Rate 20 10/10/2018 6:44 PM PATIENT ADVOCATE Oxygen Saturation 95% 10/10/2018 6:44 PM PATIENT ADVOCATE Inhaled Oxygen Concentration - - Weight 72.8 kg (160 lb 9.6 oz) 10/10/2018 1:07 P M PATIENT ADVOCATE Height 154.9 cm (5' 1 ) 10/10/2018 1:07 PM PATIENT ADVOCATE Body Mass Index 30.35 10/10/2018 1:07 PM PATIENT ADVOCATE Plan of Treatment Health Maintenance Due Date Last Done Comments DTAP/TDAP/TD VACCINES (1 - Tdap) 01/12/1972 BREAST CANCER SCREENING 1993 COLORECTAL SCREENING 1998 Colorectal Cancer Screening 1998 FIT-DNA Q 3 years 1998 FIT/FOBT Q 1 year 1998 Flex Sig/CT Colonography Q 5 years 1998 PNEUMOCOCCAL VACCINE 50+ YEARS (1 of 1 - PCV) 01/12/20 03 12/03/2015 ZOSTER VACCINE (2 of 3) 01/28/2016 12/03/2015 OSTEOPOROSIS SCREENING 2018 INFLUENZA VACCINE (#1) 2024 12/03/2015 RSV VACCINE (60+ or ) (1 - 1-dose 75+ series) 01/12/2028 Medical Devices Implanted Type Area Assistant Financial Accountant Device Identifier Shelf Expiration Date Model / Serial / Lot Spine Hardware Spine Seamguard Bio 60 [id number] - [id number] Implanted:Qty: 4 on 02/27/2015 by Yoni Segovia MD at [facility] N/A: Abdomen [employer] 10/03/2017 [id number] / / [id number] Insurance HUMANA GOLD CHOICE [facility] Advance Directives For more information, please contact: [phone] * Full Code (Latest Code Status on [...] 5:38 AM 02/27/2015 8:31 AM Care Teams Hot Plate Plywood Press Feeder Relationship Specialty Start Date End Date Kain Shields DO [address] [id number] PCP - General Internal Medicine 01/24/15
--- OUTSIDE RECORDS SUMMARY | 2025-02-09 10:22 | XMS_ITS | CONTINUITY OF CARE DOCUMENT ---
Author Name myra renteria Address Unknown Organization [facility] Address [address] [place] [address] [address] [place] [address] Phone [phone] Care Team Providers Care Operations Plant Attendant Name Role Phone myra renteria Unavailable Unavailable
--- OUTSIDE RECORDS SUMMARY | 2025-02-09 10:22 | XMS_ITS | Referral Summary ---
Author Organization [facility] [address] [place] [address] [address] [facility] [address] [place] [address] Care Team Providers Care Stock Puller Name Role Phone Ryder Wray DO Primary Care Provider [phone]- [phone] Encounters Date Type Department Care Team Description 01/25/2025 Telephone [facility] Cardiology [address] [facility] [address] [place] [address] Dante Figueroa MD 01/24/2025 1:15 PM CDT Office Visit [facility] Cardiology [address] [facility] [address] [place] [address] Dante Figueroa MD Primary hypertension (Primary Dx); Stenosis of subclavian artery 11/23/2024 4:48 PM AGRICULTURAL PILOT - 11/23/2024 11:59 PM AGRICULTURAL PILOT Hospital Encounter [facility] Radiology at [facility] [address] [place] [address] Acute pain of left shoulder Discharge Disposition: Discharge to home or self care 11/23/2024 5:00 PM AGRICULTURAL PILOT Office Visit [facility]) - [facility] [address] [facility] [address] [place] [address] Raul Worthy MD Acute pain of left shoulder (Primary Dx) from Last 3 Months Allergies Active Allergy Reactions Criticality Noted Date Comments Codeine Itching,Rash Medium Hydrocodone-Acetaminophen Rash Medium Medications aspirin (ENTERIC COATED ASPIRIN) 81 mg tablet take 1 tablet by oral route every day 0 0 6 Active lisinopril (PRINIVIL,ZESTR IL) 5 mg tablet take 1 tablet by oral route every day [address] (PROTONIX) [...] Active ARIPiprazole (ABILIFY) 2 mg tablet Take 1.5 tablets (3 mg total) by mouth nightly [address] (NexIUM) 40 mg capsule Take 1 capsule (40 mg total) by mouth daily before breakfast 3 Active eszopiclone (LUNESTA) 3 mg tablet 3 Active Belsomra 20 mg tablet Take 1 tablet (20 mg total) by mouth nightly 3 Active Trintellix 20 mg tablet Take 1 tablet (20 mg total) by mouth daily 3 Active cetirizine (ZyrTEC) 10 mg chewable tablet Take 1 tablet (10 mg total) by mouth daily Active ergocalciferol (VITAMIN D) 50,000 unit capsule Take 1 capsule (50,000 Units total) by mouth once a week 4 Active estazolam (PROSOM) 2 mg tablet TAKE 1 TABLET BY MOUTH DAILY AT BEDTIME NEEDED. MAY CALL FOR REFILL 11-26-24 Active gabapentin (NEURONTIN) 400 mg capsule 5 Active atorvastatin (LIPITOR) 40 mg tablet Take 1 tablet (40 mg total) by mouth nightly 90 tablet 6 5 Active simvastatin (ZOCOR) 40 mg tablet take 1 tablet by oral route every day in the evening 0 0 6 01/25/20 25 Discontinu ed(Alterna te therapy) Active Problems Problem Noted Date Diagnosed Date Morbid obesity 02/01/2024 PTSD (post-traumatic stress disorder) 01/08/2021 Assessment & Plan (12/20/2021 11:30 AM CDT): Chronic, persistent, therapy warranted. Seroquel prescribed for sleep which may help or indirectly with some of the symptoms. Continued management with Dr. Langford. Unspecified mood (affective) disorder 01/08/2021 Sensorineural hearing loss, asymmetrical 021 Encounter for screening colonoscopy 12/11/2019 Overview (12/11/2019): Added automatically from request for surgery [id number] Migraine headache 06/09/2017 ELIZABETH (obstructive sleep apnea) 06/09/2017 Intractable chronic migraine without aura and with status migrainosus 11/05/2016 Tobacco dependence in remission 06/17/2016 Overview (01/08/2017): Tobacco abuse, in remission Migraine 06/17/2016 Overview (01/09/2017): Migraine without status migrainosus, not intractable, unspecified migraine type Stenosis of subclavian artery 06/17/2016 Overview (01/09/2017): Stenosis of right subclavian artery [...] Overview (01/09/2017): Dyslipidemia Benign hypertension 06/17/2016 01/19/20 Overview (01/09/2017): HTN (hypertension), benign Social History Tobacco Use Types Packs/Day Years Used Date Smoking Tobacco: Former Smokeless Tobacco: Never Tobacco Cessation:Counseling Given: Not Answered Alcohol Use Standard Drinks/Week Comments No 0 (1 standard drink = 0.6 oz pur e alcohol) Comments No Sex and Gender Information Value Date Recorded Sex Assigned at Not on file Legal Sex Female 1:57 AM AGRICULTURAL PILOT Gender Identity Not on file Sexual Orientation Not on file Last Filed Vital Signs Vital Sign Reading Time Taken Comments Blood Pressure 118/64 01/24/2025 12:55 PM CDT Pulse 86 01/24/2025 12:55 PM CDT Temperature 37.2 C (99 F) 10/06/2022 11:43 AM AGRICULTURAL PILOT Respiratory Rate 22 10/06/2022 11:43 AM AGRICULTURAL PILOT Oxygen Saturation 93% 01/24/2025 12:55 PM CDT Inhaled Oxygen Concentration - - Weight 70.8 kg (156 lb) 01/24/2025 12:55 PM CDT Height 154.9 cm (5' 1 ) 01/24/2025 12:55 PM CDT Body Mass Index 29.48 01/24/2025 12:55 PM CDT Plan of Treatment Not on file Procedures Procedure Name Priority Date/Time Associated Diagnosis Comments POCT LIPID PANEL Routine 01/24/2025 12:49 PM CDT Primary hypertension ELECTROCARDIOGRAM REPORT Routine 01/24/2025 Primary hypertension XR SHOULDER LEFT 2 OR MORE VIEWS Schedule Routine, Read Routine (OP Routine) 11/23/2024 4:54 PM AGRICULTURAL PILOT Acute pain of left shoulder COLONOSCOPY 03/27/2020 7:52 AM CDT from Last 3 Months or Most Recently Relevant to Health Maintenance Results * POCT lipid panel (01/24/2025 12:49 PM CDT) Cholesterol, POC 121 mg/dL HDL, POC 57 mg/dL Triglycerides, POC 106 mg/dL LDL Cholesterol POC 43 mg/dL Chol/HDL Ratio, POC 0.7 Non-HDL Cholesterol, POC 64 mg/dL Cholesterol Total, POC 121 mg/dL Capillary blood 01/24/2025 1 2:49 PM CDT us Dante Figueroa MD POINT OF CARE TEST ORDERABLES Fi nal Result * Electrocardiogram Report (01/24/2025) 01/24/2025 us Dante Figueroa MD ECG ORDERABLES Edited Result - Final * XR Shoulder Left 2+ View (11/23/2024 4:54 PM AGRICULTURAL PILOT) Anatomical Region Laterality Modality Upper Extremities, Shoulder Left Comp uted Radiography 11/23/2024 5:00 PM AGRICULTURAL PILOT Impressions 11/23/2024 5:00 PM AGRICULTURAL PILOT 1. Moderate acromioclavicular joint osteoarthritis. Electronically signed by: Donaldo Adam D.O. Narrative 11/23/2024 5:00 PM AGRICULTURAL PILOT EXAMINATION: XR SHOULDER LEFT 2 OR MORE VIEWS HISTORY: left shoulder pain COMPARISON: None FINDINGS: No acute fracture or dislocation. Moderate acromioclavicular joint osteoarthritis. The glenohumeral joint space is preserved. Partially visualized lower thoracic spinal hardware. Procedure Note Donaldo Adam, DO - 11/23/2024 EXAMINATION: XR SHOULDER LEFT 2 OR MORE VIEWS HISTORY: left shoulder pain COMPARISON: None FINDINGS: No acute fracture or dislocation. Moderate acromioclavicular joint osteoarthritis. The glenohumeral joint space is preserved. Partially visualized lower thoracic spinal hardware. IMPRESSION: 1. Moderate acromioclavicular joint osteoarthritis. Electronically signed by: Donaldo Adam D.O. Raul Worthy MD IMG XR PROCEDURES Final Result * COLONOSCOPY (03/27/2020 7:52 AM CDT) Anatomical Region Laterality Modality Other Narrative Procedure Note Henry Kaplan MD - 03/27/2020 7:52 AM CDT [facility] Endoscopy Lab Patient Name: Vangie Cha [...] the bowel preparation was evaluated using the BBPS([place] Bowel Preparation Scale) with scores of: Right [...] for malignantneoplasm of colon CPT copyright 2017 [employer]. All rights reserved. The codes documented in this report are preliminary and upon sweater designer reviewmay be revised to meet current compliance [...] PPO [employer] CHOICE MEDICARE PPO Care Teams Stock Puller Relationship Specialty Start Date End Date Ryder Wray DO [facility] [address] [place] [address] PCP - General Internal Medicine 01/24/25
--- OUTSIDE RECORDS SUMMARY | 2025-02-09 10:22 | XMS_ITS | Clinical Summary ---
Author Organization [facility] [address] [facility] [address] [place] [address] Care Team Providers Care Solar Engineer Name Role Phone Ryder Wray DO Primary Care Provider +1- [phone] Allergies Active Allergy Reactions Criticality Noted Date [...] (12/11/2019): Added automatically from request for surgery [id number] Migraine headache 06/09/2017 ELIZABETH (obstructive sleep apnea) [...] 06/17/2016 01/19/20 Overview (01/09/2017): HTN (hypertension), benign Encounters Date Type Department Care Team Description 01/25/2025 Telephone [facility] Cardiology [address] [place] [address] Dante Figueroa MD 01/24/2025 1:15 PM CDT Office Visit [facility] Cardiology [address] [place] [address] Dante Figueroa MD Primary hypertension (Primary Dx); Stenosis of subclavian artery 11/23/2024 5:00 PM CHEMICAL DETECTION EXPERT Office Visit [facility] ([facility]) - [facility] [address] [facility] [address] [place] [address] Raul Worthy MD Acute pain of left shoulder (Primary Dx) 11/23/2024 4:48 PM CHEMICAL DETECTION EXPERT - 11/23/2024 11:59 PM CHEMICAL DETECTION EXPERT Hospital Encounter [facility] Radiology at [facility] [address] [place] [address] Acute pain of left shoulder Discharge Disposition: Discharge to home or self care from Last 3 Months Surgical History Surgery Date Site/Laterality Comments LUMBAR [...] on file Legal Sex Female 1:57 AM CHEMICAL DETECTION EXPERT Gender Identity Not on file Sexual Orientation Not on file Obstetrics History Last Filed Vital Signs Vital Sign Reading Time Taken Comments Blood Pressure 118/64 01/24/2025 12:55 PM CDT Pulse 86 01/24/2025 12:55 PM CDT Temperature 37.2 C (99 F) 10/06/2022 11:43 AM CHEMICAL DETECTION EXPERT Respiratory Rate 22 10/06/2022 11:43 AM CHEMICAL DETECTION EXPERT Oxygen Saturation 93% 01/24/2025 12:55 PM CDT Inhaled Oxygen Concentration - - Weight 70.8 kg (156 lb) 01/24/2025 12:55 PM CDT Height 154.9 cm (5' 1 ) 01/24/2025 12:55 PM CDT Body Mass Index 29.48 01/24/2025 12:55 PM CDT Plan of Treatment Health Maintenance Due Date Last Done Comments Breast Cancer Screening-Mammogram 1955 Depression Screening 1955 Hepatitis C Screening 1955 Osteoporosis Screening-Bone Density Scan 1955 DTaP/Tdap/Td Vaccine (1 - Tdap) 01/12/1964 Hepatitis B Screening 1971 Zoster Vaccine (2 of 3) 01/28/2016 12/03/2015 Pneumococcal vaccine 65+ (2 of 2 - PPSV23) 12/02/2016 12/03/2015 Well Visit 65+ 2018 Fall Risk Assessment 03/27/2021 03/27/2020 Influenza Vaccine (Season Ended) 2025 12/03/19 16 Colon Cancer Screening-Colonoscopy 03/27/20302019 Colon Cancer Screening-CT [...] Read Routine (OP Routine) 11/23/2024 4:54 PM CHEMICAL DETECTION EXPERT Acute pain of left shoulder COLONOSCOPY 03/27/2020 [...] nal Result * Electrocardiogram Report (01/24/2025) 01/24/2025 Dante Figueroa MD ECG ORDERABLES Edited Result - Final * XR Shoulder Left 2+ View (11/23/2024 4:54 PM CHEMICAL DETECTION EXPERT) Anatomical Region Laterality Modality Upper Extremities, Shoulder Left Comp uted Radiography 11/23/2024 5:00 PM CHEMICAL DETECTION EXPERT Impressions 11/23/2024 5:00 PM CHEMICAL DETECTION EXPERT 1. Moderate acromioclavicular joint osteoarthritis. Electronically signed by: Donaldo Adam D.O. Narrative 11/23/2024 5:00 PM CHEMICAL DETECTION EXPERT EXAMINATION: XR SHOULDER LEFT 2 OR MORE VIEWS HISTORY: left shoulder pain COMPARISON: None FINDINGS: No acute fracture or dislocation. Moderate acromioclavicular joint osteoarthritis. The glenohumeral joint space is preserved. Partially visualized lower thoracic spinal hardware. Procedure Note Donaldo Adam DO - 11/23/2024 EXAMINATION: XR SHOULDER LEFT [...] Kaplan MD - 03/27/2020 7:52 AM CDT [facility] Endoscopy Lab Patient Name: Vangie [...] the bowel preparation was evaluated using the BBPS([place] Bowel Preparation Scale) with scores of: Right [...] for malignantneoplasm of colon CPT copyright 2017 [employer]. All rights reserved. The codes documented in this report are preliminary and upon plc engineer reviewmay be revised to meet current compliance requirements. Electronically signed by Henry Kaplan MD Henry Kaplan M.D. 03/27/2020 8:28:03 AM Number of Addenda: 0 Note Initiated On: 03/27/2020 7:52 AM Henry Kaplan MD ENDOSCOPY PROCEDURES Final Resul t from Last 3 Months or Most Recently Relevant to Health Maintenance Insurance [employer] MEDICARE PPO [employer] MEDICARE PPO [employer] CHOICE MEDICARE PPO [employer] CHOICE MEDICARE PPO Care Teams Solar Engineer Relationship Specialty Start Date End Date Ryder Wray DO [address] [place] [address] DR [address] [place] [id number] PCP - General Internal Medicine 01/24/25
--- OUTSIDE RECORDS SUMMARY | 2025-02-09 10:22 | XMS_ITS | Clinical Summary ---
Author Organization [facility] Address [address] [place] [address] Care Team Providers Care Cocoa Room Operator Name Role Phone Ryder Wray DO Primary Care Provider [phone] Source Comments [facility],non-owned Affiliates and Associated Physician Practices is amultiple site organization consisting of ambulatory clinics and hospital sitesin [place], [place], [place] and [place]. This disclosure is being madepursuant to the Care Everywhere program and may not contain all information available regarding this patient. Last updated 18.[facility] Allergies Active Allergy Reactions Criticality Noted Date Comments Codeine GI Discomfort 01/12/2025 Hydrocodone Itching 10/07/2018 Nausea Pt states she can tolerate Percocet but not Vicodin. Medications * Be aware that medications may not be up to date on this document. Alwaysverify current medications with the patient. albuterol (Proventil;Ventoli n) (2.5 MG/3ML) 0.083% nebulizer solution 04/22/20 23 Active albuterol HFA (Proventil; Ventolin; Proair) 108 (90 Base) MCG/ACT inhaler Inhale 2 (two) puffs by mouth every 6 hours as needed for Wheezing 07/21/20 23 Active aspirin EC (Ecotrin) 81 MG tablet Take 1 (one) tablet by mouth once daily Active busPIRone (Buspar) 10 MG tablet Take 1 (one) tablet by mouth 2 times daily 07/01/20 23 Active esomeprazole (NexIUM) 40 MG capsule Take 1 (one) capsule by mouth daily before breakfast 06/08/20 23 Active gabapentin (Neurontin) 400 MG capsule Take 1 (one) capsule by mouth 2 times daily 07/01/20 23 Active lamoTRIgine (LaMICtal) 50 MG TABS Take 1 (one) Half Tablet by mouth 2 times daily 06/29/20 22 Active lisinopril (Prinivil; Zestril) 5 MG tablet Take 1 (one) tablet by mouth once daily 07/01/20 23 Active simvastatin (Zocor) 40 MG tablet Take 1 (one) tablet by mouth once daily 06/03/20 23 Active Belsomra 20 MG tablet Take 1 (one) tablet by mouth at bedtime 04/27/20 23 Active Trintellix 20 MG tablet Take 1 (one) tablet by mouth once daily 07/01/20 23 Active hydrOXYzine HCl (Atarax) 10 MG tablet Take 1 (one) tablet by mouth 2 times daily as needed 12/20/19 24 Active eszopiclone (Lunesta) 3 MG tablet Take 1 (one) tablet by mouth at bedtime 12/20/19 24 Active Immune Globulin, Human, (HIZENTRA SC) Inject subcutaneously every 7 days Active cetirizine (ZyrTEC) 10 MG chew tablet Take 1 (one) tablet by mouth once daily Active fluticasone propionate (Flonase) 50 MCG/ACT nasal spray [place] 2 (two) sprays into each nostril once daily Active vitamin D, ergocalciferol, (Drisdol) 1.25 MG (80352 UT) capsule Take 1 (one) capsule by mouth every 7 days 12 capsule 01/18/20 24 Active cyclobenzaprine (Flexeril) 10 MG tabletIndications: chronic back pain Take 1 (one) tablet by mouth every 8 hours as needed for Muscle Spasms Reasons: chronic back pain 15 tablet 02/02/20 24 Active Additional Information Patient not taking.Reported on 01/22/2025 gabapentin (Neurontin) 250 MG/5ML oral solution Take 8 mL by mouth 2 times daily for 30 days 480 mL 02/02/20 24 Active vitamin E (Tocopheryl) 400 UNIT capsule Take 2 (two) capsules by mouth once daily 180 capsule 02/25/20 24 Active ARIPiprazole (Abilify) 5 MG tablet Active potassium chloride ER (Klor-Con M) 20 MEQ tablet Take 1 (one) tablet by mouth once daily Active polyethylene glycol 3350 (Miralax) 17 g packet Take 17 (seventeen) g by mouth once daily as needed for Constipation 01/16/20 25 Active acetaminophen (Tylenol) 500 MG tablet Take 2 (two) tablets by mouth every 8 hours as needed for Fever or Pain Maximum allowable Acetaminophen amount = 4 Grams (4000 mg) / 24 hours. 01/16/20 25 Active methocarbamol (Robaxin) 500 MG tablet Take 1 (one) tablet by mouth every 6 hours as needed for Muscle Spasms 30 tablet 01/16/20 25 Active docusate sodium (Colace Clear) 50 MG capsuleIndications :Constipation, unspecified constipation type Take 1 (one) capsule by mouth 3 times daily 270 capsule 1 01/24/20 25 Active pimecrolimus (Elidel) 1 % cream 11/01/19 24 2024 Disconti nued(Lis t Clean-Up ) clonazePAM (KlonoPIN) 0.5 MG tablet Take 1 (one) tablet by mouth once daily as needed 12/16/19 24 2024 Disconti nued(Lis t Clean-Up ) acetaminophen (Tylenol) 160 MG/5ML solution Take 20.3125 mL by mouth every 6 hours 02/02/20 24 2024 Disconti nued(Lis t Clean-Up ) docusate sodium (Colace Clear) 50 MG capsuleIndications :Constipation, unspecified constipation type Take 1 (one) capsule by mouth 3 times daily 270 capsule 1 08/02/20 24 2024 Disconti nued(Reo rder) ondansetron, disintegrating, (Zofran ODT) 4 MG tablet DISSOLVE 1 TABLET ON THE TONGUE EVERY 6 HOURS NEEDED FOR NAUSEA AND VOMITING 30 tablet 3 12/14/19 25 2024 Disconti nued(Lis t Clean-Up ) docusate sodium (Colace) 100 MG capsule Take 1 (one) capsule by mouth 2 times daily as needed for Constipation (relief of difficult bowel movements) 01/16/20 25 2024 Disconti nued(Lis t Clean-Up ) magnesium hydroxide (Milk Of Magnesia) 400 MG/5ML suspension Take 15 mL by mouth as needed for Constipation 01/16/20 25 2024 Disconti nued(Lis t Clean-Up ) oxyCODONE, immediate release, (Roxicodone) 5 MG tabletIndications: S/P laparoscopic cholecystectomy Take 1 (one) tablet by mouth every 6 hours as needed for Pain 12 tablet 01/16/20 25 2024 Disconti nued(Lis t Clean-Up ) docusate sodium (Colace Clear) 50 MG capsuleIndications :Constipation, unspecified constipation type Take 1 (one) capsule by mouth 3 times daily 270 capsule 1 01/23/20 25 2024 Disconti nued(Lis t Clean-Up ) Active Problems Problem Noted Date Diagnosed Date Morbid obesity 02/01/2024 Encounters Date Type Department Care Team Description 01/23/2025 Telephone [facility] [address] [place] [address], [address] [place] [address] Tania Naranjo, RN Returned Call 01/23/2025 Orders Only [facility] [address] [place] [address], [facility] [address] [place] [address] Tania Naranjo, RN 01/22/2025 9:00 AM CDT Office Visit [facility] [address], [address] [place] [phone] Vikki Salvador, PERL DEVELOPER-BRICK GRADER S/P laparoscopic cholecystectomy (Primary Dx); Constipation, unspecified constipation type 01/22/2025 Travel 01/15/2025 12:00 PM CDT - 01/15/2025 1:25 PM CDT Surgery [facility] [address] [address] Aki Osorio, DO LAPAROSCOPIC CHOLECYSTECTOMY 01/15/2025 11:57 AM CDT Anesthesia Event [facility] [address] [phone] Brianne Marcial MD 01/15/2025 10:25 AM CDT - 01/15/2025 2:54 PM CDT Hospital Encounter [facility] [address] [address] Aki Osorio, DO Surgery General Discharge Disposition: Home or Self Care 01/15/2025 Travel 01/12/2025 Travel 2025 Travel 12/19/2024 Telephone [facility] [address], [address] [place] [address] Angy Yates Surgery Scheduling 12/13/2024 Refill [facility] [address], [address] [place] [address] Vikki Salvador, PERL DEVELOPER-BRICK GRADER MEDICATION REFILL 12/13/2024 Refill [facility] [address], [address] [place] [address] Vikki Salvador, PERL DEVELOPER-BRICK GRADER MEDICATION REFILL 12/13/2024 Refill [facility] [address], [address] [place] [address] Vikki Salvador, PERL DEVELOPER-BRICK GRADER Refill Request from Last 3 Months Social History Tobacco Use Types Packs/Day Years Used Date Smoking Tobacco: Former Cigarettes Smokeless Tobacco: Never Tobacco Cessation:Counseling Given: Not Answered Alcohol Use Standard Drinks/Week Comments Not Currently 0 (1 standard drink = 0.6 oz pur e alcohol) Comments No Sex and Gender Information Value Date Recorded Sex Assigned at Not on file Legal Sex Female 9:39 AM CDT Gender Identity Not on file Sexual Orientation Not on file Last Filed Vital Signs Vital Sign Reading Time Taken Comments Blood Pressure 139/74 01/22/2025 8:58 AM CDT Pulse 80 01/22/2025 8:58 AM CDT Temperature 37 C (98.6 F) 01/22/2025 8:58 AM CDT Respiratory Rate 12 01/15/2025 2:10 PM CDT Oxygen Saturation 100% 01/15/2025 2:35 PM CDT Inhaled Oxygen Concentration - - Weight 70.9 kg (156 lb 3.2 oz) 01/22/2025 8:58 A M CDT Height 154.9 cm (5' 1 ) 01/22/2025 8:58 AM CDT Body Mass Index 29.51 01/22/2025 8:58 AM CDT Plan of Treatment Upcoming Encounters Date Type Department Care Team (Late st Contact Info) Description 03/13/2025 10:15 AM CDT Office Visit [facility] [address] [facility], [address] [place] [address] Vikki Salvador, PERL DEVELOPER-BRICK GRADER [address] [facility] [address] [place] [address] 05/09/2025 2:00 PM CDT Procedure visit [facility] [address] [place] [phone] 05/09/2025 2:30 PM CDT Office Visit [facility] [address] [place] [phone] Bowen Youngblood MD [address] [place] [address] [address] [place] [phone] Health Maintenance Due Date Last Done Comments [...] 60-74 years 1-dose series) 2013 COVID-19 VACCINE ( season) 2024 DEPRESSION SCREENING 10/04/2024 MEDICARE AWV CALENDAR YEAR 2024 INFLUENZA VACCINE (Season Ended) 2025 12/03/2015 SCREENING FOR DIABETES 08/02/2027 4, 02/02/2024, 02/01/2024, [...] complete this topic MENINGOCOCCAL (Group B) VACCINE SHARED DECISION-MAKING Aged Out No longer eligible based on patient's age to complete this topic MENINGOCOCCAL GROUPS A/C/Y/W VACCINE Aged Out No longer eligible based on patient's age to complete this topic Procedures Procedure Name Priority Date/Time Associated Diagnosis Comments CARDIAC RHYTHM STRIP ORDER 01/16/2025 5:55 PM CDT PATHOLOGY TISSUE EXAM (STL) Routine 01/15/2025 12:43 PM CDT Diagnosis unknown NC LAP,CHOLECYSTECTOMY 01/15/2025 11:47 AM CDT COMPREHENSIVE METABOLIC PANEL Routine 08/02/2024 1:37 PM CDT Constipation, unspecified constipation type S/P biliopancreatic diversion with duodenal switch Vitamin deficiency Weight loss Dietary counseling and surveillance Postsurgical malabsorption History of morbid obesity from Last 3 Months or Most Recently Relevant to Health Maintenance Results * CARDIAC RHYTHM STRIP ORDER (01/16/2025 5:55 PM CDT) Narrative 01/16/2025 5:55 PM CDT Ordered by an unspecified provider. us Scanned Document CARDIAC SERVICES ORDERABLES Fin al Result * PATHOLOGY TISSUE EXAM (STL) (01/15/2025 12:43 PM CDT) Case Report Surgical Pathology Report Case: [id number] Authorizing Provider: Aki Osorio DO Collected: 01/15/2025 12:43 PM Ordering Location: [facility] Received: 01/15/2025 01:30 PM [facility] Pathologist: Veronica Nava MD Specimen: Gallbladder, gall bladder 01/16/2025 3:30 PM T [facility] Final Diagnosis Gallbladder, cholecystectomy: - Cholelithiasis and chronic cholecystitis 01/16/2025 3:30 PM [facility] at 1530 CDT Gross Description Received in formalin labeled with the patient's name, Vangie Cha, and gallbladder is an 8 x 4 x 2.5 cm gallbladder. The specimen is opened to show approximately 15 mL of bile and multiple brown-veronica multifaceted calculi, 0.5 cm in greatest aggregate dimension. The cystic duct is obstructed. The gallbladder mucosa is granular. Specimen has a maximal wall thickness of 0.2 cm. Corporate Strategist sections are submitted in A1. JI 01/16/2025 3:30 PM [facility] Microscopic Description Histologic sections show mild chronic inflammation. There is no evidence of dysplasia or malignancy. 01/16/2025 3:30 PM [facility] Disclaimer All histochemical and/or immunohistochemical results are interpreted with controls that demonstrate appropriate staining reactions before reporting results. Note on use of immunocytochemistry reagents: This test was developed and its performance characteristic determined by [facility], Department of Laboratory Medicine. It has not been cleared or approved by the U.S. Food and Drug Administration (FDA). The FDA has determined that such clearance or approval is not necessary. The test is used for clinical purpose. It should not be regarded as investigational or for research. This laboratory is certified to perform high complexity testing. The performance characteristics of the IHC/FRANCISCO assays have been validated on formalin-fixed paraffin embedded tissues only. The assays have not been validated on decalcified tissues. Results should be interpreted with caution. 01/16/2025 3:30 PM [facility] Embedded Images 01/16/2025 3:30 PM [facility] Pathology/Cytolo gy ENTIRE GALLBLADDER / Unknown 01/15/2025 12:43 PM CDT 01/15/2025 1:30 PM CDT us Aki Osorio DO LAB - PATHOLOGY/CYTOLOGY OR DERABLES Final Result [facility] [address] [phone] * (ABNORMAL) COMPREHENSIVE METABOLIC PANEL (08/02/2024 1:37 [...] - 08/03/2024 9:14 AM CDT Performed at: 01 - [address] [id number] Internal Revenue Agent: Chavez Benavides PhD, Phone: [phone] us Vikki Salvador PERL DEVELOPER-BRICK GRADER LAB - CHEMISTRY ORDERABLE S Final Result [facility] INSURANCE BILL [id number] [place] [address] from Last 3 Months or Most Recently Relevant to Health Maintenance Insurance [employer] MEDICARE ADV HMO & PPO Advance Directives * Full Code (Latest Code Status on File) Date Activated Date Inactivated Comments 02/01/2024 2:43 PM 02/02/2024 4:24 PM Care Teams Cocoa Room Operator Relationship Specialty Start Date End Date Ryder Wray DO [address] [place] [phone] PCP - General Internal Medicine 01/15/25
[2025-02-09 11:44] LABS: Estimated Glomerular Filt Rate > 60
== END 2025-02-09 10:16 | disposition home or self-care (01) ==
PROVIDERS: PCP Internal Medicine; Visit Provider Internal Medicine Cardiovascular Disease
DX: I77.1 Stricture of artery (principal); J43.9 Emphysema, unspecified; R91.8 Other nonspecific abnormal finding of lung field
CPT/HCPCS: 73206; Q9967

== ENCOUNTER 2025-07-18 06:56 | Outpatient (CLI) | payer MEDICARE, SELFPAY ==
--- OUTSIDE RECORDS SUMMARY | 2011-12-15 08:00 | XMS_ITS | Continuity of Care Document ---
Author Organization [facility] Address [address] [place] [address] Phone Care Team Providers Care Director Of Search Engine Marketing Name Role Phone Riaz Ashley MD, FACS Unavailable Unavailab le Allergies, Adverse Reactions, Alerts Substance Reaction Status Criticality codeine Active No Information Medications Medication Instructions Dosage Effective Dates (start - stop) Status Comments VITAMIN C (unknown strength) Not Available - Active MUCINEX (unknown strength) Not Available - Active MAGNESIUM (unknown strength) take 2 capsule by ORAL route every day with food Not Available - Active WELLBUTRIN SR (unknown strength) take 1 tablet by ORAL route 2 times every day Not Available - Active LISINOPRIL (unknown strength) take 1 tablet by ORAL route every day Not Available - Active FUROSEMIDE (unknown strength) inject 8 milliliter by INTRAVENOUS route over Not Available - Active Celebrex 200 mg Cap take 1 capsule (200MG) by ORAL route 2 times every day as needed 200 MG - Active Baby Aspirin 81 mg Chewable Tab chew 1 tablet (81MG) by ORAL route every day - Active Cymbalta 30 mg Cap take 1 capsule (30MG) by ORAL route 2 times every day - Active Simvastatin 40 mg Tab take 1 tablet (40MG) by ORAL route every day in the evening 40 MG - Active Temazepam 15 mg Cap take 1 capsule (15MG) by ORAL route every day at bedtime as needed 15 MG - Active Sonata 10 mg Cap take 1 capsule (10MG) by ORAL route every day at bedtime - Active Cyclobenzaprine 10 mg Tab take 1 tablet (10MG) by ORAL route 2 times every day 10 MG - Active HIZENTRA (unknown strength) Not Available - Active Percocet 10 mg-325 mg Tab take 1 tablet by ORAL route every 6 hours as needed 1.00 tablet - Active Procedures Procedure Date Office/outpatient Visit, Est Frames Deluxe Progressive Lens, Hi Index Vision Svcs Frames Purchases Tint Photochromatic, Polycarb 8 Tax - Medical Eye Exam & Treatment Refraction Eye Exam Established Pt Visual Functional Status Assessed Office/outpatient Visit, Est Eye Exam Established Pt Advance Directives Directive Yes / No Effective Date File Name Resuscitation Not Answered N/A N/A Life Support Not Answered N/A N/A Intubation Not Answered N/A N/A Antibiotics Not Answered N/A N/A IV Fluid Support Not Answered N/A N/A Tube Feed Not Answered N/A N/A Other Directive N/A N/A WARNING:The information contained in this section is historical and is provided for information only and does not constitute a legal document or any assurance that the information is still accurate. Please verify the information with the garza of the legal document before using it for clinical purposes. Encounters Encounter Description Practice Location Reason(s) For Visit Diagnoses Date Provider Providers Copied on Encounter Office/outpa tient Visit, [facility], [facility] [place] [facility] [place] [address], [place], [place], [id number], [place] tel:[phone] [facility] SENILE NUCLEAR CATARACTNODUL AR EPISCLERITIS -201 2 Gabi Mello. [facility] [place] [facility] [place] [email or web address], [address], [place], [place], [address], [place]. tel:[phone] Referring Provider: Riaz Liriano, [facility] [place] [facility] [place] [email or web address], [place], [address]. tel:[phone] [facility], [address], [place], [place], [address], tel:[phone] [facility] No Information Oct-2 2-200 8 [employer] . [address], [address], [place], [place], [id number], [place]. tel:[phone] Consulting Provider: Juan Diego Govea, [address], [place], [address]. tel:[phone] [facility], [address], [place], [place], [address], [place] tel:[phone] [facility] No Information Bruno-3 1-200 8 [employer] . [address], [address], [place], [place], [address], [place]. tel:[phone] Referring Provider: Hossein Liriano, [address] [facility] [address], [place], [address]. tel:[phone] ing Provider: Yanira Girard, [address] [place], [address]. tel:[phone] [facility], [address], [place], [place], [address], [place] tel:[phone] SEC Errol Tyler No Information Bruno-0 7-200 8 [place] Riaz. [address] [employer] [facility], [address], [place], [place], [address], [place]. tel:[phone] [facility], [address], [place], [place], [address], [place] tel:[phone] SEC Errol Tyler No Information Dec-0 3-200 7 Gabi Riza. [address] [employer] [facility], [address], [place], [place], [address], [place]. tel:[phone] Office/outpa tient Visit, Est [facility], [address], [place], [place], [address], [place] tel:[phone] SEC Errol Tyler No Information Aram-0 4-200 7 Gabi Mello. [address] [employer], [address], [place], [place], [address], [place]. tel:[phone] [facility], [address] [address], [place], [place], [address], [place] tel:[phone] SEC Errol Tyler No Information 7 Gabi Mello. [address] [employer] [facility], [address], [place], [place], [address], [place]. tel:[phone] Family History Family Member Type Diagnosis Age At Onset Problem (finding) Grandmother Problem (finding) Diabetes mellitus Payers Payer name Insurance type Covered republican ID Authoriza tion(s) [place] [id number] Social History Type Description Quantity Date Captured Comments Alcohol Use Details No Caffeine Use Details Tobacco Use Status No Information Smoking Status No Information Sex Female Chief Complaint And Reason For Visit No Information Reason For Referral Reason For Referral No Information History Of Present Illness Encounter Date Complaint History Of Prese nt Illness No Information Functional Status Date Functional Assessmen t No Information Instructions Date Instruction Additional Infor mation NODULAR EPISCLERITIS , 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 No treatment is required at this time. Will continue to observe condition and symptoms. Call if vision gets worse. Related to Cataract, Nuclear Sclerosis Assessments Type Assessment Date No Information Patient Care Teams Name Effective Dates (start - stop) Status Members No Information
--- OUTSIDE RECORDS SUMMARY | 2025-07-18 06:59 | XMS_ITS | Clinical Summary ---
Author Organization [facility] [address] [facility] [address] Address [address] [place] [address] Care Team Providers Care Armhole Sewer Name Role Phone Ryder Wray DO Primary Care Provider Allergies Active Allergy Reactions Criticality Noted Date [...] mouth nightly 90 tablet 6 5 Active Active Problems Problem Noted Date [...] (12/11/2019): Added automatically from request for surgery [id number] Migraine headache 06/09/2017 ELIZABETH (obstructive sleep apnea) [...] on file Legal Sex Female 1:57 AM CLAY MILLER Gender Identity Not on file Sexual Orientation Not on file Obstetrics History Last Filed Vital Signs Vital Sign Reading Time Taken Comments Blood Pressure 118/64 01/24/2025 12:55 PM CDT Pulse 86 01/24/2025 12:55 PM CDT Temperature 37.2 C (99 F) 10/06/2022 11:43 AM CLAY MILLER Respiratory Rate 22 10/06/2022 11:43 AM CLAY MILLER Oxygen Saturation 93% 01/24/2025 12:55 PM CDT Inhaled Oxygen Concentration - - Weight 70.8 kg (156 lb) 01/24/2025 12:55 PM CDT Height 154.9 cm (5' 1) 01/24/2025 12:55 PM CDT Body Mass Index 29.48 01/24/2025 12:55 PM CDT Plan of Treatment Health Maintenance Due Date Last Done Comments Breast Cancer Screening-Mammogram 1955 Depression Screening 1955 Hepatitis C Screening 1955 Osteoporosis Screening-Bone Density Scan 1955 DTaP/Tdap/Td Vaccine (1 - Tdap) 01/12/1964 Hepatitis B Screening 1971 Zoster Vaccine (2 of 3) 01/28/2016 12/03/2015 Pneumococcal vaccine 65+ (2 of 2 - PCV20 or PCV21) 10/201612/03/2015 Well Visit 65+ 2018 Fall Risk Assessment 03/27/2021 03/27/2020 Influenza Vaccine (#1) 2025 12/03/2015 Colon Cancer Screening-Colonoscopy 03/27/20302019 Colon Cancer [...] Kaplan MD - 03/27/2020 7:52 AM CDT [facility] Patient Name: Vangie Cha Procedure Date: 03/27/2020 7:52 AM Date of : 1955 Admit Type: Outpatient Age: 65 Gender: Female Note Status: Finalized Attending MD: Henry Kaplan M.D. Procedure Date: 03/27/2020 Procedure: Colonoscopy Indications: Screening for colorectal malignant neoplasm, This is the patient's first colonoscopy Providers: Herny Kaplan M.D., Kimberly Rodriguez CRNA (Anesthesia Staff), [...] the bowel preparation was evaluated using the BBPS(Boaz Bowel Preparation Scale) with scores of: Right [...] for malignantneoplasm of colon CPT copyright 2017 [employer]. All rights reserved. The codes documented in this report are preliminary and upon duco polisher reviewmay be revised to meet current compliance requirements. Electronically signed by Henry Kaplan MD Henry Kaplan M.D. 03/27/2020 8:28:03 AM Number of Addenda: 0 Note Initiated On: 03/27/2020 7:52 AM Henry Kaplan MD ENDOSCOPY PROCEDURES Final Resul t from Last 3 Months or Most Recently Relevant to Health Maintenance Insurance [employer] MEDICARE PPO Bit9 MEDICARE PPO [employer] CHOICE MEDICARE PPO [employer] CHOICE MEDICARE PPO Care Teams Armhole Sewer Relationship Specialty Start Date End Date Ryder Wray DO PCP - General Internal Medicine 01/24/25
--- OUTSIDE RECORDS SUMMARY | 2025-07-18 06:59 | XMS_ITS | Data Portability ---
Author Organization [place] [facility], Main Office Address [address] [place] [address] Care Team Providers Care Mixing Engineer Name Role Phone ERIN SOLIS Primary Care Provider [phone] ERIN SOLIS Referring Provider [phone] Assessment Encounter Date Assessment Date Assessment LastModified by Organization Details LastModified Time 06/29/2024 06/29/2024 This note is dictated and transcribed by [email or web address]. Heat Seal Operator variances may occur. Despite proofreading, typographical errors may occur. Occasional wrong-word or 'pojhv-l-umfl' substitutions may have occurred due to the inherent limitations of voice recording. Read the chart carefully and recognize, using context, where substitutions have occurred. [email or web address] Not available 06/29/2024 14:39:07 10/12/2024 10/12/2024 This note is dictated and transcribed by [email or web address]. Heat Seal Operator variances may occur. Despite proofreading, typographical errors may occur. Occasional wrong-word or 'nawjw-n-koca' substitutions may have occurred due to the inherent limitations of voice recording. Read the chart carefully and recognize, using context, where substitutions have occurred. Not available 10/12/2024 16:18:13 01/08/2025 01/08/2025 This note is dictated and transcribed by [email or web address]. Heat Seal Operator variances may occur. Despite proofreading, typographical errors may occur. Occasional wrong-word or 'xxysw-z-mwsr' substitutions may have occurred due to the inherent limitations of voice recording. Read the chart carefully and recognize, using context, where substitutions have occurred. Not available 01/08/2025 16:36:34 Plan of Treatment Reminders Order Date Submit Date Provider Last Modified By Organization Details Last Modified Time Details Appointments None record ed. Lab None record ed. Referral None record ed. Procedures None record ed. Surgeries None record ed. Imaging None record ed. Medication Orders None record ed. Patient TargetsNo targets recorded. Patient InstructionsNo instructions recorded. Reason for Referral None Reported. Problems Name Problem SNOMED Code Status Onset Date Resolution Date Notes Provider Name and Address Organization Details Recorded Time Radiothera py follow-up 588192255 Active Not Available [facility] 3 12:46:35 Partial thickness rotator cuff tear 970253754 Active Not Available [facility] 3 12:46:35 Shoulder joint pain 061528527 Active Not Available [facility] 3 12:46:35 Closed fracture of metatarsal bone 35182707 Active Not Available [facility] 3 12:46:35 Disorder of bursa of shoulder region 51309699 Active Not Available [facility] 3 12:46:35 Anxiety 70439001 Active 2023 Annabel castro [place] - [facility] 14:02:16 Arthritis 3395070 Active 2023 Annabel castro [facility] 4 14:02:27 Depressive disorder 65367622 Active 2023 Annabel castro [place] [facility] 4 14:02:35 Dizziness 780351593 Active 2023 Annabel castro [place] [facility] 4 14:02:43 Headache 92185855 Active 2023 Annabel castro, [facility] 4 14:02:50 Hyperchole sterolemia 72672673 Active 2023 Annabel castro [place] [facility] 4 14:02:58 Disorder of lung 86084745 Active 2023 Annabel castro [place] [facility] 4 14:03:07 Migraine 44187645 Active 2023 Annabel castro [place] - [facility] 4 14:03:14 Obesity 727175950 Active 2023 Annabel castro, [employer] [facility] 4 14:03:20 Curly toe 239356580 Active 2023 Zaire Rodriguez DPM [address], [address], [place], [address] , [facility] 4 14:38:59 [place] of toe 42036256 Active 2023 Zaire Rodriguez DPM [address], [address], [place], [address] , [facility] 4 14:39:04 Dystrophia unguium 21523447 Active 2023 Zaire Rodriguez DPM [address], [place], [address] , [facility] 4 14:39:14 Ingrowing toenail 188250690 Active 2024 Zaire Rodriguez DPM [address], [place], [address] , [facility] 5 16:18:08 Pain of toes of bilateral feet 1604980794196 9102 Active 2024 Zaire Rodriguez DPM [address], [place], [address] , [facility] 5 16:18:14 Pain in toe 624893342 Active 2024 Zaire Rodriguez DPM [address], [place], [address] , [facility] 5 16:36:56 Problem Notes None recorded. Procedures Surgical History Date Name Laterality Status Provider Name and Address Organization Details Recorded Time 01/09/20 25 Callus Debridement, One completed Zaire Rodriguez DPM [address], [place], [address], [facility] 01/22/2025 09:39:46 10/12/19 25 Nail Debridement completed Zaire Rodriguez DPM [address], [place], [address], [facility] 10/12/2024 16:17:42 06/29/20 24 Callus Debridement 2-4 completed Zaire Rodriguez DPM [address], [place], [address], [facility] 06/29/2024 14:38:50 section completed Annabel Dodd [facility] 06/29/2024 14:05:33 section completed Annabel Dodd [facility] 06/29/2024 14:05:33 section completed Annabel Muñozd [facility] 06/29/2024 14:05:34 section completed Annabel Muñozd [facility] 06/29/2024 14:05:36 Imaging Results None recorded. Procedure Notes None recorded. Medical Equipment None Reported. Allergies Allergen ID Allergen Name Allergen Category Reaction Reaction Severity Criticality Documentation Date Start Date Code Code System Note Provider Name and Address Organization Details Recorded Time 66069 codeine medicatio n Not available Not available Not available 06/29/2024 2670 RxNorm Annabel Muñozd [facility] 14:01:47 Medications Name Sig Start Date Stop [...] 1 TABLET BY MOUTH DAILY AT BEDTIME NEEDED active Not Available Not Available No [...] in Arterial blood by Pulse oximetry Systolic And Diastolic Provider Name and Address Organization Details Last Updated DateTime 5 154.94 cm 30.8 kg/m2 80737.5 6 g 87 /min 14 /min 98 % 98 % 130/61 mm[Hg] Adelina Gunderson [facility] 5 15:18:15 Date Recorded Body height Body mass index (BMI) Body weight Heart rate Respiratory rate Body temperature Oxygen saturation Oxygen saturation in Arterial blood by Pulse oximetry Systolic And Diastolic Provider Name and Address Organization Details Last Updated DateTime 5 154.94 cm 30.8 kg/m2 74861.5 6 g 77 /min 14 /min 98 [degF] 98 % 98 % 130/80 mm[Hg] Kellie Fernandez [facility] [employer] [facility] 5 16:12:50 Date Recorded Body height Body mass index (BMI) Body weight Provider Name and Address Organization Details Last Updated DateTime 06/29/2024 154.94 cm 30.8 kg/m2 08762.56 g Annabel Mallory [facility] [employer] [facility] 06/29/2024 14:01:34 Date Recorded Heart rate Respiratory rate Oxygen saturation Oxygen saturation in Arterial blood by Pulse oximetry Systolic And Diastolic Provider Name and Address Organization Details Last Updated DateTime 4 79 /min 14 /min 98 % 98 % 128/69 mm[Hg] Adelina Grey [facility] [employer] [facility] 14:10:31 Social History Question Answer Notes LastModified by Organizat ion Details LastModified Time Tobacco Smoking Status Former Smoker Annabel Mallory castro, [facility] [employer] [facility] 06/29/2024 14:05:10 When Did You Quit Smoking? 16+yearssinc elastcigaret te Information not available 06/29/2024 How Many Years Have You Smoked Tobacco? 43 Information not available 06/29/2024 Sex: Unknown Functional Status Question Answer Note LastModified by Organization D etails LastModified Time What is your level of alcohol consumption? None Information not available 06/29/2024 Mental Status None recorded. Family History Relationship Description Onset Age of this Age Resolved Age Notes LastModified by Organization Details LastModified Time Unspecified Relation Diabetes mellitus niece Not available 2023 14:03:48 Mother Arthritis Not availa ble 01/08/2025 15:41:12 Mother Hypertensive disorder Not available 2023 14:04:09 Mother Heart disease Not available 2023 14:04:31 Mother Blood coagulation disorder Not available 04/07 /2025 15:41:12 Father Hypertensive disorder Not available 2023 14:04:09 Father Heart disease Not available 2023 14:04:31 Brother Heart disease Not available 2023 14:04:31 Sister Heart disease Not available 2023 14:04:31 Medical History Condition Response ARTHRITIS Y HEADACHES/MIGRAINES Y OBESITY Y ANXIETY DISORDER Y DIZZINESS Y LUNG DISEASE/DISORDER Y DEPRESSION (INCLUDING POST ) Y BACK / NECK PROBLEMS Y HIGH CHOLESTEROL / HYPERLIPIDEMIA Y Gynecological HistoryNo gynecological history recorded. Obstetrics History GPAL:G 0 P 0 0 0 0 Past Encounters Encounter ID Performer Location Encounter Start Date Encounter Closed Date Diagnosis/Indication Diagnosis SNOMED-CT Code Diagnosis ICD10 Code Diagnosis IMO Codes Diagnosis Note [id number] Zaire Rodriguez DPM [facility] [place] [address] [place] [address] 06/29/2024 13:54:38 07/03/2024 11:39:30 Curly toe 812123375 M20.5X9 as above [place] of toe 10757850 L84 debrided both feetrecomm end offloading Reviewed treatment options in detailPati ent defers surgeryRec ommend wide shoe gearRecomm end silicone toe cap Dystrophia unguium 27282 009 L60.3 nails debrided without incident [id number] Zaire Rodriguez DPM [facility] [place] [place] [address] [place] [address] 10/12/2024 15:12:27 10/17/2024 15:29:47 Pain of toes of bilateral feet 2141989710 8619852 M79.674 M79.675 as above Ingrowing toenail 359354 009 L60.0 both corners, both great toesnail debridemen t of the both nail cornersdis cussed treatment optionscon tinue with conservati ve therapyfol low-up 3 months [id number] Zaire Rodriguez DPM [facility] [place] [place] [address] [place] [address] 01/08/2025 15:38:57 01/22/2025 10:52:28 Curly toe 994910483 M20.5X9 right 5th toecont offloading wide shoes [place] of toe 39942247 L84 debrided right 5th toerecomme nd offloading Reviewed treatment options in detailPati ent defers surgeryRec ommend wide shoe gearRecomm end silicone toe cap Pain in toe 006899591 M7 9.674 right 5th toe Health Concerns Section Related Observation LastModified by Organization Detai ls LastModified Time None Recorded Concern Status LastModified by Organization Details LastModified Time None Recorded Advance Directives Directive None Recorded Payers Insurance Date Sequence Insurance Name Policy Number Policy Hong Covered Member ID Hong Member ID Guarantor Name 01/30/2025 1 [employer] (MEDICARE REPLACEMENT/A DVANTAGE - PPO) Vangie Cha [id number] Vangie Cha Notes Date Note Type Note [...] any other complaints. Zaire Rodriguez DPM [address], [facility] [address], [place], [address], [employer] 06/29/2024 14:40:22 10/12/2024 text/html . Patient is [...] go. Patient denies any other complaints. Zaire Rodriguez DPM [address], [facility] [address], [place], [address], [employer] 10/12/2024 16:33:45 01/08/2025 text/html . Patient is a 70-year-old female who returns the office for follow-up on pain to the toes. Patient has early toes which cause increased pressure and corns to the toe she denies any open wounds or injury she states with build-up of the corns she develops pain. Patient describes the pain as sharp in nature. Patient states when she is not active it does not hurt. Patient denies any other complaints. Zaire Rodriguez DPM [address] [address], [place], [address], [place] [facility] 01/22/2025 09:40:09 OBGyn Episode No OBEpisode recorded.
--- OUTSIDE RECORDS SUMMARY | 2025-07-18 06:59 | XMS_ITS | Clinical Summary ---
Author Organization [facility] Piet[facility] Escal[facility] Address [address] [address] Care Team Providers Care Wooden Barrel Mechanic Name Role Phone BetsyKain dennis Primary Care Provider [phone] Allergies Active Allergy Reactions Criticality Noted Date [...] on file Legal Sex Female 4:26 AM SEMICONDUCTOR WAFERS ETCH OPERATOR Gender Identity Not on file Sexual Orientation Not on file Last Filed Vital Signs Vital Sign Reading Time Taken Comments Blood Pressure 156/73 10/10/2018 6:44 PM SEMICONDUCTOR WAFERS ETCH OPERATOR Pulse 99 10/10/2018 6:44 PM SEMICONDUCTOR WAFERS ETCH OPERATOR Temperature 36.7 C (98 F) 10/10/2018 6:44 PM SEMICONDUCTOR WAFERS ETCH OPERATOR Respiratory Rate 20 10/10/2018 6:44 PM SEMICONDUCTOR WAFERS ETCH OPERATOR Oxygen Saturation 95% 10/10/2018 6:44 PM SEMICONDUCTOR WAFERS ETCH OPERATOR Inhaled Oxygen Concentration - - Weight 72.8 kg (160 lb 9.6 oz) 10/10/2018 1:07 P M SEMICONDUCTOR WAFERS ETCH OPERATOR Height 154.9 cm (5' 1) 10/10/2018 1:07 PM SEMICONDUCTOR WAFERS ETCH OPERATOR Body Mass Index 30.35 10/10/2018 1:07 PM SEMICONDUCTOR WAFERS ETCH OPERATOR Plan of Treatment Health Maintenance Due Date [...] 12/03/2015 OSTEOPOROSIS SCREENING 2018 INFLUENZA VACCINE (#1) 2025 12/03/2015 RSV VACCINE (60+ or ) (1 - 1-dose 75+ series) 01/12/2028 Medical Devices Implanted Type Area Laborer/Key Man Device Identifier Shelf Expiration Date Model / Serial / Lot Spine Hardware Spine Seamguard Bio 60 [id number] - [id number] Implanted:Qty: 4 on 02/27/2015 by Yoni Segovia MD at [facility] N/A: Abdomen [employer] 10/03/2017 [id number] / / [id number] Insurance [employer] GOLD CHOICE PFFS MCR Advance Directives For more information, please contact: [phone] * Full Code (Latest Code Status on [...] 5:38 AM 02/27/2015 8:31 AM Care Teams Wooden Barrel Mechanic Relationship Specialty Start Date End Date Kain Shields DO [address] [facility] [address] [place] [address] PCP - General Internal Medicine 01/24/15
--- OUTSIDE RECORDS SUMMARY | 2025-07-18 06:59 | XMS_ITS | Clinical Summary ---
Author Organization [facility] Address [address] [place] [address] Care Team Providers Care Evp Global Product Leadership Name Role Phone Ryder Wray DO Primary Care Provider Source Comments [facility],non-owned Affiliates and Associated Physician Practices is amultiple site organization consisting of ambulatory clinics and hospital sitesin [place], [place], [place] and [place]. This disclosure is being madepursuant to the Care Everywhere program and may not contain all information available regarding this patient. Last updated 18.[facility] Allergies Active Allergy Reactions Criticality Noted Date Comments Codeine GI Discomfort 01/12/2025 Hydrocodone Itching 10/07/2018 Nausea Pt states she can tolerate Percocet but not Vicodin. Medications * Be aware that medications may not be up to date on this document. Alwaysverify current medications with the patient. albuterol (Proventil;Bud beka) (2.5 MG/3ML) 0.083% nebulizer solution 3 Active albuterol HFA (Proventil; Ventolin; Proair) 108 (90 Base) MCG/ACT inhaler Inhale 2 (two) puffs by mouth every 6 hours as needed for Wheezing 3 Active aspirin EC (Ecotrin) 81 MG tablet Take 1 (one) tablet by mouth once daily Active busPIRone (Buspar) 10 MG tablet Take 1 (one) tablet by mouth 2 times daily 3 Active esomeprazole (NexIUM) 40 MG capsule Take 1 (one) capsule by mouth daily before breakfast 3 Active gabapentin (Neurontin) 400 MG capsule Take 1 (one) capsule by mouth 2 times daily 3 Active lamoTRIgine (LaMICtal) 50 MG TABS Take 1 (one) Half Tablet by mouth 2 times daily 2 Active lisinopril (Prinivil; Zestril) 5 MG tablet Take 1 (one) tablet by mouth once daily 3 Active Belsomra 20 MG tablet Take 1 (one) tablet by mouth at bedtime 3 Active Trintellix 20 MG tablet Take 1 (one) tablet by mouth once daily 3 Active hydrOXYzine HCl (Atarax) 10 MG tablet Take 1 (one) tablet by mouth 2 times daily as needed 4 Active cetirizine (ZyrTEC) 10 MG chew tablet Take 1 (one) tablet by mouth once daily Active fluticasone propionate (Flonase) 50 MCG/ACT nasal spray [place] 2 (two) sprays into each nostril once daily Active vitamin D, ergocalciferol, (Drisdol) 1.25 MG (58953 UT) capsule Take 1 (one) capsule by mouth every 7 days 12 capsule 4 Active cyclobenzaprine (Flexeril) 10 MG tabletIndication s:chronic back pain Take 1 (one) tablet by mouth every 8 hours as needed for Muscle Spasms Reasons: chronic back pain 15 tablet 4 Active gabapentin (Neurontin) 250 MG/5ML oral solution Take 8 mL by mouth 2 times daily for 30 days 480 mL 4 Active ARIPiprazole (Abilify) 5 MG tablet Active potassium chloride ER (Klor-Con M) 20 MEQ tablet Take 1 (one) tablet by mouth once daily Active polyethylene glycol 3350 (Miralax) 17 g packet Take 17 (seventeen) g by mouth once daily as needed for Constipation 5 Active atorvastatin (Lipitor) 40 MG tablet Take 1 (one) tablet by mouth at bedtime 5 Active Estazolam 2 MG Take 1 tablet by mouth 4 Active docusate sodium (Colace Clear) 50 MG capsuleIndicatio ns:Constipation, unspecified constipation type Take 1 (one) capsule by mouth 3 times daily 270 capsule 1 5 Active Additional Information Patient taking differently:50 mg Oral2 TIMES DAILY, Reported on 05/09/2025 Active Problems Problem Noted Date Diagnosed Date Morbid obesity 02/01/2024 Encounters Date Type Department Care Team Description 05/09/2025 2:30 PM CDT Office Visit [facility] - GI [address] [place] [address] Unknown, Unknown Bowen Youngblood MD Metabolic dysfunction-associate d steatotic liver disease (MASLD) (Primary Dx); Elevated liver enzymes; History of sleeve gastrectomy; BMI 30.0-30.9,adult 05/09/2025 2:00 PM CDT Procedure visit [facility] - [address] [address] Metabolic dysfunction-associate d steatotic liver disease (MASLD) ; Morbid obesity (HCC) 05/09/2025 Travel from Last 3 Months Social History [...] Sign Reading Time Taken Comments Blood Pressure 114/42 05/09/2025 2:16 PM CDT Pulse 71 05/09/2025 2:16 PM CDT Temperature 36.7 C (98.1 F) 05/09/2025 2:16 PM CDT Respiratory Rate 12 01/15/2025 2:10 PM CDT Oxygen Saturation 98% 05/09/2025 2:16 PM CDT Inhaled Oxygen Concentration - - Weight 71.9 kg (158 lb 9.6 oz) 03/13/2025 10:20 AM CDT Height 154.9 cm (5' 1) 05/09/2025 2:16 PM CDT Body Mass Index 29.97 03/13/2025 10:20 AM CDT Plan of Treatment Upcoming Encounters Date Type Department Care Team (Late st Contact Info) Description 09/19/2025 3:30 PM [facility] Office Visit [facility] - GI [address] [facility] [place] [address] Bowen Youngblood MD [address] [facility] [address] [place] [address] 03/13/2026 1:00 PM CDT Office Visit [facility] Weight Management [facility] [address] [facility], [address] [place] [address] Vikki Salvador, C[employer] B[employer]BRIDGE OPENER [address] [facility] [place] [address] Health Maintenance Due Date Last Done Comments BONE DENSITY TESTING 1955 COLOGUARD (AGES 45-75) - COLON CA SCREENING 1953 CT COLONOGRAPHY - COLON CA SCREENING [...] - Risk 60-74 years 1-dose series) 2013 DEPRESSION SCREENING 10/04/2024 MEDICARE AWV CALENDAR YEAR 2024 COVID-19 VACCINE (1 - 2023- season) 2025 INFLUENZA VACCINE (#1) 2025 12/03/2015 SCREENING FOR DIABETES 08/02/2027 , 02/02/2024, 02/01/2024, Additional history exists COLON MONITORING 03/27/2030 03/27/2020 COLONOSCOPY - COLON CA SCREENING 03/27/2030 03/27/2020 [...] on patient's age to complete this topic Goals Goal Patient Goal Type Associated Problems Recent Progress Patient-Stated? Author Medication Management General Maribel Brito RN Note: Expected end date: ongoing Interventions: Take all medications as prescribed Let your doctor know right away about any changes in your medications Make sure to request a refill of your medication at least one week prior to your last dose Procedures Procedure Name Priority Date/Time Associated Diagnosis Comments MA LIVER ELASTOGRAPHY Routine 05/09/2025 1:54 PM CDT Morbid obesity (HCC) COMPREHENSIVE METABOLIC PANEL Routine 08/02/2024 1:37 PM CDT Constipation, unspecified constipation type S/P biliopancreatic diversion with duodenal switch Vitamin deficiency Weight loss Dietary counseling and surveillance Postsurgical malabsorption History of morbid obesity from Last 3 Months or Most Recently Relevant to Health Maintenance Results * MA LIVER ELASTOGRAPHY (05/09/2025 1:54 PM CDT) Narrative Melida Vann RN - 05/09/2025 1:54 PM CDT Melida Vann RN 05/09/2025 5:59 PM Diagnosis: Morbid obesity (HCC) RN verified patient NPO for prior 3 hours. Procedure explained. Date of Exam: 05/09/2025 Liver Stiffness: (LSM, kPa) median: 8.1 IQR/Median% (ideally < 30%): 14% CAP (controlled attenuation parameter): 244 Technical Difficulty: None Ordering Provider: Bowen Youngblood MD Phone Fax us Bowen Youngblood MD PROCEDURE/MINOR SURGICAL ORDERAB LES Edited Result - Final * (ABNORMAL) COMPREHENSIVE METABOLIC PANEL (08/02/2024 1:37 [...] 9:14 AM CDT Performed at: [address] [id number] Captain Cannery Tender: Chavez Benavides PhD, Phone: [phone] Vikki Salvador [employer] LAB - CHEMISTRY ORDERABLE S Final Result [facility] INSURANCE BILL [address] [place] [address] from Last 3 Months or Most Recently Relevant to Health Maintenance Insurance [employer] MEDICARE ADV HMO & PPO Advance Directives * Full Code (Latest Code Status on File) Date Activated Date Inactivated Comments 02/01/2024 2:43 PM 02/02/2024 4:24 PM Care Teams Evp Global Product Leadership Relationship Specialty Start Date End Date Ryder Wray DO [address] [place] [address] PCP - General Internal Medicine 01/15/25
[2025-07-18 08:49] LABS: Hematocrit 39.0 % (37.0-47.0); Hemoglobin 12.2 g/dL (12.0-15.0); Immature Granulocyte Percent A 0.4 % (0-0.5); Lymphocytes Absolute Auto 2.61 K/mm3 (0.9-3.2); Mean Corpuscular HGB Conc 31.3 g/dl (32-36); Mean Corpuscular Hemoglobin 28.4 pg (26-34); Mean Corpuscular Volume 90.7 fl (80-100); Nucleated Red Blood Cells Absolute Auto 0.000 K/mm3 (0.0-0.012); Nucleated Red Blood Cells Perc 0.0 % (0.0-0.2); Platelet Count Result 334 k/mm3 (150-375); Red Blood Count 4.30 M/mm3 (4.2-5.4); White Blood Count 8.4 K/mm3 (4.5-10.0)
[2025-07-18 09:51] LABS: Ferritin 8.35 ng/mL (11.1-264)
== END 2025-07-18 06:57 | disposition home or self-care (01) ==
LOC: ANHLAB 06:57
PROVIDERS: PCP Internal Medicine; Visit Provider Internal Medicine
DX: D50.9 Iron deficiency anemia, unspecified (principal)
CPT/HCPCS: 36415; 82728; 85025